=== PATIENT | female | born 1940 | race Caucasian/White ===

== ENCOUNTER 2017-09-01 20:33 | Observation (INO) | payer OTHER ==
[2017-09-01] MEDS ORDERED: OSELTAMIVIR PHOSPHATE 75 MG CAPSULE PO ONE (21:48)
[2017-09-01 22:01] LABS: ARTERIAL BLD GAS O2 SATURATION 95.2 % (90-98.9); ARTERIAL BLOOD GAS BASE EXCESS 1.9 meq/l (-2-2); ARTERIAL BLOOD GAS PCO2 40.6 mmHg (35-45); ARTERIAL BLOOD GAS PO2 73.9 mmHg (70-100); ARTERIAL BLOOD GAS pH 7.42 (7.35-7.45); CARBOXYHEMOGLOBIN 1.4 gm% (0.5-2.0)
[2017-09-01 22:04] LABS: ALLENS TEST POSITIVE
[2017-09-01] MEDS ORDERED: OSELTAMIVIR PHOSPHATE 75 MG CAPSULE ONE (22:13)
[2017-09-01] MEDS ORDERED: ALBUTEROL SO4 2.5/IPRATROPIUM 0.5 INH SOL 3 ML VIAL.NEB. NEB ONE ×2 (22:28→22:36)
--- NOTE | 2017-09-01 22:28 | PDOC ---
History of Present Illness - General Chief Complaint: Cold Symptoms Stated Complaint: FLU SYMPTOMS Time Seen by Provider: 09/01/17 20:47 History Source: Patient Exam Limitations: No Limitations - History of Present Illness Initial Comments: 09/01/17 22:15 76F with no pmh presents to the Ed for shortness of breath, cough, sinus congestion and generalized body aches. Comes in with who has similar symptoms. Son who lives with them was sick and diagnosed with the flu last week Past History - Past Medical History Allergies/Adverse Reactions: Allergies Allergy/AdvReac Type Severity Reaction Status Date / Time No Known Drug Allergies Allergy Verified 09/01/17 20:59 Home Medications: Ambulatory Orders Esomeprazole Magnesium [Nexium 24Hr] 40 mg PO DAILY 07/17/16 Acetaminophen [Tylenol .Regular Strength -] 650 mg PO Q4H PRN #0 tablet Oseltamivir Phosphate [Tamiflu] 75 mg PO BID #10 capsule 09/01/17 Asthma: Yes (RESOLVED) Cancer: No Cardiac Disorders: No CVA: No COPD: No CHF: No Dementia: No Diabetes: No GI Disorders: Yes (REFLUX) Disorders: No HTN: No Hypercholesterolemia: No Liver Disease: No Seizures: No Thyroid Disease: No - Surgical History Abdominal Surgery: No Appendectomy: No Cardiac Surgery: No Cholecystectomy: No Lung Surgery: No Neurologic Surgery: No Orthopedic Surgery: No - Suicide/Smoking/Psychosocial Hx Smoking History: Never smoked Have you smoked in the past 12 months: No Information on smoking cessation initiated: No Hx Alcohol Use: No Drug/Substance Use Hx: No Substance Use Type: None *Physical Exam - Vital Signs Last Vital Signs Temp Pulse Resp BP Pulse Ox 98.8 F 84 16 128/72 95 09/01/17 20:59 09/01/17 20:59 09/01/17 20:59 09/01/17 20:59 09/01/17 20:59 ED Treatment Course - LABORATORY CBC & Chemistry Diagram: 09/01/17 22:45 09/01/17 22:45 - ADDITIONAL ORDERS Additional order review: Laboratory Results 09/01/17 21:35 Puncture Site Left radial ABG pH 7.42 ABG pCO2 at Pt Temp 40.6 ABG pO2 at Pt Temp 73.9 ABG HCO3 25.9 ABG O2 Sat (Measured) 95.2 ABG O2 Content 16.0 ABG Base Excess 1.9 Alfonzo Test Positive Carboxyhemoglobin 1.4 Methemoglobin 0.9 O2 Delivery Device Room air Oxygen Flow Rate No Result Required. 09/01/17 21:15 Influenza Types A,B Antigen (HAIM) - Final Nasopharyngeal Swab - Final Medical Decision Making - Medical Decision Making 09/01/17 22:33 Positiuve for Flu A. Treated with influenza with tamiflu and duoneb. 09/01/17 23:38 Patient persistently dyspneic despite treatments, looks in moderate distress Will admit for observation. 09/01/17 23:53 *DC/Admit/Observation/Transfer Diagnosis at time of Disposition: Influenza A virus present, Dyspnea - Discharge Dispostion Admit: Yes - Prescriptions Prescriptions: Oseltamivir Phosphate [Tamiflu] 75 mg PO BID #10 capsule - Referrals Referrals: Chema Lloyd MD [Primary Care Provider] - - Patient Instructions - Post Discharge Activity
--- NOTE | 2017-09-01 22:39 | PDOC ---
Attending Attestation - Resident Resident Name: Prashanth Quick - ED Attending Attestation I have performed the following: I have examined & evaluated the patient, The case was reviewed & discussed with the resident, I agree w/resident's findings & plan, Exceptions are as noted - HPI HPI: 09/01/17 22:37 76-year-old female presents with several days complaints of worsening fever/ chills, myalgias, cough. Increasingly dyspneic at home, presents with who is also a patient with similar symptoms for 1 day, both had exposure to sun who was recently diagnosed with influenza A. - Physicial Exam PE: 09/01/17 22:38 Vital signs are within normal limits Alert but feels weak, intermittent dry cough Course breath sounds with scattered and expiratory wheezing with cough Abdomen benign - Medical Decision Making 09/01/17 22:38 Patient seen and evaluated with the resident. I agree with the overall evaluation, assessment, and management with the following summary of visit: 76-year-old female with 3 days symptoms of JOÃO, normal vital signs but dyspneic. labs sent ABG, flu, CXR trial of neb reassess 09/01/17 23:50 Influenza a positive, subjectively very dyspneic and weak when ambulating. Labs are reassuring, but given her symptoms and evidence of interstitial disease on my preliminary review of the x-ray, we'll admit for observation overnight.
[2017-09-01 23:03] LABS: HEMATOCRIT 37.5 % (32.4-45.2); HEMOGLOBIN 12.5 GM/dL (10.7-15.3); MCH 29.7 pg (25.7-33.7); MCHC 33.5 g/dl (32.0-36.0); MEAN CELL VOLUME 88.7 fl (80-96); MEAN PLT VOLUME 8.5 fl (7.5-11.1); PLATELET COUNT 133 K/MM3 (134-434); RBC 4.22 M/mm3 (3.60-5.2); RDW 13.6 % (11.6-15.6); WHITE BLOOD COUNT 3.7 K/mm3 (4.0-10.0)
[2017-09-01 23:28] LABS: ALBUMIN 3.6 g/dl (3.4-5.0); ALK PHOS 72 U/L (45-117); ANION GAP 7 (8-16); BILIRUBIN,TOTAL 0.3 mg/dL (0.2-1.0); BLOOD UREA NITROGEN 18 mg/dL (7-18); CALCIUM 7.8 mg/dL (8.5-10.1); CHLORIDE 99 mmol/L (98-107); CO2 30 mmol/L (21-32); CREATININE 0.8 mg/dL (0.55-1.02); GLUCOSE,RANDOM 112 mg/dL (74-106); POTASSIUM 3.3 mmol/L (3.5-5.1); SGOT/AST 189 U/L (15-37); SGPT/ALT 160 U/L (12-78); SODIUM 136 mmol/L (136-145); TOT PROT 7.9 g/dl (6.4-8.2)
[2017-09-02] MEDS ORDERED: ONDANSETRON 4 MG/2 ML VIAL IVPB PRN (00:08)
[2017-09-02] MEDS ORDERED: POTASSIUM CHLORIDE TABS 20 MEQ TABLET.ER (FP) PO ONE ×2 (00:12→15:26)
[2017-09-02] MEDS ORDERED: guaiFENesin/CODEINE 10 ML UNIT-DOSE CUPS PO PRN (00:15)
[2017-09-02] MEDS ORDERED: IBUPROFEN 400 MG TABLET (FP) PO PRN (00:15)
[2017-09-02] MEDS ORDERED: SODIUM CHLORIDE 1,000 ML IV SCH ×2 (00:15→15:27)
--- NOTE | 2017-09-02 00:55 | HP ---
Admitting History and Physical - Admission Chief Complaint: flu symptoms History of Present Illness: 76 yo ukrainian speaking f w hx of gerd, dizziness, constipation, asthma who present to the er for flu symptoms. patient reports onset of flu symptoms 4 days ago. her son tested positive for flu. she reports congestion, genealized malaise, decreased appetite, body aches, chills and fevers. she denies sob, or cp. pmh/psh- gerd, dizziness, constipation, asthma social- no toxic habits, lives w family famhx- nc ros neg except for hpi pex gen- alert, non toxic hent- at/nc, david, neck supple trachea midline resp- no cough, lung ctab, no rales, no wheeze cards- s12 heard, no jvd, no leg edema gi- obese, non-tender, no guarding, no rebound psych- calm, no agitation neuro- alert, no facial droop, speech clear skin- no erythema pcp- dr beltre prob list flu A positive asthma constipation dizziness transamintis hypokalemia a/p- 76 yo ukrainian speaking f w hx of gerd, dizziness, constipation, asthma who present to the er for flu symptoms. 1. influenza A positive- started on tamiflu, conservative measures, ivf. 2. asthma( stable) prn nebs 3. h/o dizziness- prn meclizine 4. gerd- cont ppi 5. transamintis- trend lfts, check acute hep panel, tylenol level. 6. constipation- senna hs 7. hypokalemia- replete as needed 8. mild thrombocytopenia-monitor labs. no s/s bleeding dvt prophy scd, oob, expect less than 48hr fen ivf dispo- obs for flu History Source: Patient, Family Member Limitations to Obtaining History: Language Barrier - Smoking History Smoking history: Never smoked Have you smoked in the past 12 months: No - Alcohol/Substance Use Hx Alcohol Use: No Home Medications - Allergies Allergies/Adverse Reactions: Allergies Allergy/AdvReac Type Severity Reaction Status Date / Time No Known Drug Allergies Allergy Verified 09/01/17 20:59 - Home Medications Home Medications: Ambulatory Orders Esomeprazole Magnesium [Nexium 24Hr] 40 mg PO DAILY 07/17/16 Acetaminophen [Tylenol .Regular Strength -] 650 mg PO Q4H PRN #0 tablet Oseltamivir Phosphate [Tamiflu] 75 mg PO BID #10 capsule 09/01/17 Physical Examination Vital Signs: Vital Signs Temperature 98.8 F 09/01/17 20:59 Pulse Rate 84 09/01/17 20:59 Respiratory Rate 16 09/01/17 20:59 Blood Pressure 128/72 09/01/17 20:59 O2 Sat by Pulse Oximetry (%) 95 09/01/17 20:59 Labs: CBC, BMP 09/01/17 22:45 09/01/17 22:45 Visit type - Emergency Visit Emergency Visit: Yes ED Registration Date: 09/02/17 Care time: The patient presented to the Emergency Department on the above date and was hospitalized for further evaluation of their emergent condition. - New Patient This patient is new to me today: Yes Date on this admission: 09/02/17 - Critical Care Critical Care patient: No
[2017-09-02] MEDS ORDERED: MECLIZINE HCL 12.5 MG TABLET PO PRN (00:56)
[2017-09-02] MEDS ORDERED: POTASSIUM CHLORIDE ORAL LIQUID 20 MEQ/15 ML ONE (02:06)
[2017-09-02 06:14] LABS: HEMATOCRIT 36.9 % (32.4-45.2); MCHC 32.5 g/dl (32.0-36.0); MEAN CELL VOLUME 89.1 fl (80-96); MEAN PLT VOLUME 8.7 fl (7.5-11.1); PLATELET COUNT 139 K/MM3 (134-434); RBC 4.14 M/mm3 (3.60-5.2); RDW 13.7 % (11.6-15.6); WHITE BLOOD COUNT 2.7 K/mm3 (4.0-10.0)
[2017-09-02] MEDS ORDERED: ACETAMINOPHEN 325 MG TABLET (FP) PO ONE (06:25)
[2017-09-02] MEDS ORDERED: ACETAMINOPHEN 325 MG TABLET (FP) ONE (06:26)
[2017-09-02 06:42] LABS: ALBUMIN 3.3 g/dl (3.4-5.0); ALK PHOS 41 U/L (45-117); ANION GAP 9 (8-16); BILIRUBIN,TOTAL 0.3 mg/dL (0.2-1.0); BLOOD UREA NITROGEN 15 mg/dL (7-18); CALCIUM 8.1 mg/dL (8.5-10.1); CHLORIDE 102 mmol/L (98-107); CO2 27 mmol/L (21-32); CREATININE 0.7 mg/dL (0.55-1.02); GLUCOSE,RANDOM 108 mg/dL (74-106); MAGNESIUM 2.1 mg/dL (1.8-2.4); POTASSIUM 3.4 mmol/L (3.5-5.1); SGOT/AST 191 U/L (15-37); SGPT/ALT 162 U/L (12-78); SODIUM 138 mmol/L (136-145); TOT PROT 7.3 g/dl (6.4-8.2)
[2017-09-02] MEDS ORDERED: ONDANSETRON 4 MG/2 ML VIAL ONE (08:07)
[2017-09-02] MEDS ORDERED: ALBUTEROL SO4 2.5/IPRATROPIUM 0.5 INH SOL 3 ML VIAL.NEB. NEB ONE (08:15)
[2017-09-02] MEDS ORDERED: IBUPROFEN 400 MG TABLET (FP) PO ONE (08:15)
[2017-09-02] MEDS: ALBUTEROL SO4 2.5/IPRATROPIUM 0.5 INH SOL 3 ML VIAL.NEB. NEB PRN ×2 (08:22→14:03)
[2017-09-02] MEDS: OSELTAMIVIR PHOSPHATE 75 MG CAPSULE PO SCH ×2 (09:01→21:33)
[2017-09-02] MEDS: PANTOPRAZOLE 40 MG TABLET (FP) PO SCH (09:01)
[2017-09-02 10:55] VITALS: BMI 29.2
--- NOTE | 2017-09-02 15:26 | PN ---
Progress Note (short form) - Note Progress Note: Subjective: no SOB , no events. Objective: Vital Signs: Last Vital Signs Temp Pulse Resp BP Pulse Ox 98.1 F 66 17 107/55 96 09/02/17 13:46 09/02/17 13:46 09/02/17 13:46 09/02/17 13:46 09/02/17 13:46 Laboratory Results - last 24 hr 09/01/17 09/01/17 09/01/17 21:35 22:45 22:45 WBC 3.7 L RBC 4.22 Hgb 12.5 Hct 37.5 MCV 88.7 MCH 29.7 MCHC 33.5 RDW 13.6 Plt Count 133 L MPV 8.5 Neutrophils % No Result Required. Neutrophils % (Manual) 71.6 Band Neutrophils % 8.7 Lymphocytes % No Result Required. Lymphocytes % (Manual) 10.2 Monocytes % (Manual) 5 Eosinophils % (Manual) 0.0 Basophils % (Manual) 1.6 Myelocytes % (Man) 1 Promyelocytes % (Man) 0 Nucleated RBC % 2 H Metamyelocytes 2 Puncture Site Left radial ABG pH 7.42 ABG pCO2 at Pt Temp 40.6 ABG pO2 at Pt Temp 73.9 ABG HCO3 25.9 ABG O2 Sat (Measured) 95.2 ABG O2 Content 16.0 ABG Base Excess 1.9 Alfonzo Test Positive Carboxyhemoglobin 1.4 Methemoglobin 0.9 O2 Delivery Device Room air Oxygen Flow Rate No Result Required. Sodium 136 Potassium 3.3 L Chloride 99 Carbon Dioxide 30 Anion Gap 7 L BUN 18 Creatinine 0.8 Creat Clearance w eGFR > 60 Random Glucose 112 H Calcium 7.8 L Magnesium Total Bilirubin 0.3 AST 189 H ALT 160 H Alkaline Phosphatase 72 Total Protein 7.9 Albumin 3.6 Acetaminophen 09/02/17 09/02/17 09/02/17 00:36 05:55 05:55 WBC 2.7 L RBC 4.14 Hgb 12.0 Hct 36.9 MCV 89.1 MCH 29.0 MCHC 32.5 RDW 13.7 Plt Count 139 MPV 8.7 Neutrophils % No Result Required. Neutrophils % (Manual) 63.2 Band Neutrophils % 3.8 Lymphocytes % No Result Required. Lymphocytes % (Manual) 18.9 D Monocytes % (Manual) 12 H D Eosinophils % (Manual) 0.0 Basophils % (Manual) 0.0 Myelocytes % (Man) 0 D Promyelocytes % (Man) 0 Nucleated RBC % Metamyelocytes 2 Puncture Site ABG pH ABG pCO2 at Pt Temp ABG pO2 at Pt Temp ABG HCO3 ABG O2 Sat (Measured) ABG O2 Content ABG Base Excess Alfonzo Test Carboxyhemoglobin Methemoglobin O2 Delivery Device Oxygen Flow Rate Sodium 138 Potassium 3.4 L Chloride 102 Carbon Dioxide 27 Anion Gap 9 BUN 15 Creatinine 0.7 Creat Clearance w eGFR > 60 Random Glucose 108 H Calcium 8.1 L Magnesium 2.1 Total Bilirubin 0.3 AST 191 H ALT 162 H Alkaline Phosphatase 41 L Total Protein 7.3 Albumin 3.3 L Acetaminophen 4.599 L Physical Exam: NAD MMM Cv: RRR Lungs: generalized wheezes , good air entry Ext: no edema Abd:soft, NT, ND , NL BS Assessment/Plan: 76 y/o lady with h/o asthma ,GERD and other medical problems who presented with URI sx and wheezing , was found to have Influenza A 1- Influenza A: - cont tamiflu day 1 - no evidence of PNA - no oxygen requirements 2 - Mild asthma exacerbation : generalized wheezing . , nl AGB, no reps distress - start low dose prednisone with taper - Nebs 3- Transaminitis: has fatty liver on US . no signs of obstruction flu infection might be contributing hepatitis panel ordered, add hep B S abs and Hep B Core igG follow 4- mild volume depletion : gentle hydration Observe Visit type - Emergency Visit Emergency Visit: Yes ED Registration Date: 09/02/17 Care time: The patient presented to the Emergency Department on the above date and was hospitalized for further evaluation of their emergent condition. - New Patient This patient is new to me today: No - Critical Care Critical Care patient: No
[2017-09-02] MEDS: predniSONE 20 MG TABLET (UD) PO SCH (17:28)
[2017-09-02] MEDS ORDERED: PT OWN MED DRAWER 7, Y5N ONE (21:31)
[2017-09-02] MEDS ORDERED: SENNOSIDES/DOCUSATE COMBO (SENNA PLUS) TABLET (UD) PO SCH (22:00)
[2017-09-03 07:09] LABS: BASO % 0.5 % (0-2.0); HEMATOCRIT 39.3 % (32.4-45.2); HEMOGLOBIN 12.4 GM/dL (10.7-15.3); LYMPH % 51.3 % (8-40); MCH 28.5 pg (25.7-33.7); MCHC 31.6 g/dl (32.0-36.0); MEAN CELL VOLUME 90.2 fl (80-96); MEAN PLT VOLUME 9.1 fl (7.5-11.1); NEUT % 32.2 % (42.8-82.8); PLATELET COUNT 153 K/MM3 (134-434); RBC 4.36 M/mm3 (3.60-5.2); RDW 13.8 % (11.6-15.6)
[2017-09-03 07:34] LABS: POTASSIUM 4.2 mmol/L (3.5-5.1)
[2017-09-03 08:09] LABS: ALBUMIN 3.1 g/dl (3.4-5.0); ALK PHOS 64 U/L (45-117); BILIRUBIN,DIRECT < 0.2 mg/dL (0.0-0.2); BILIRUBIN,TOTAL 0.3 mg/dL (0.2-1.0); PHOSPHOROUS 2.9 mg/dL (2.5-4.9); SGOT/AST 134 U/L (15-37); SGPT/ALT 139 U/L (12-78); TOT PROT 7.2 g/dl (6.4-8.2)
[2017-09-03] MEDS ORDERED: PT OWN MED DRAWER 7, Y5N ONE (10:08)
[2017-09-03] MEDS: PANTOPRAZOLE 40 MG TABLET (FP) PO SCH (10:11)
[2017-09-03] MEDS: predniSONE 20 MG TABLET (UD) PO SCH (10:12)
[2017-09-03] MEDS: OSELTAMIVIR PHOSPHATE 75 MG CAPSULE PO SCH (10:12)
[2017-09-03 12:33] VITALS: BP 135/81; PULSE 86; TEMP 98.6
--- NOTE | 2017-09-03 15:49 | PN ---
Teaching Attending Note Name of Resident: Maurice Sheffield ATTENDING PHYSICIAN STATEMENT I saw and evaluated the patient. I reviewed the resident's note and discussed the case with the resident. I agree with the resident's findings and plan as documented. SUBJECTIVE: No fever or chills, NO SOB , no PAIn in ABd . OBJECTIVE: NAD MMM Cv: RRR Lungs: No wheezing , good air entry Ext: no edema Abd:soft, NT, ND , NL BS Assessment/Plan: 76 y/o lady with h/o asthma ,GERD and other medical problems who presented with URI sx and wheezing , was found to have Influenza A 1- Influenza A: - cont tamiflu day 2/5 - no evidence of PNA - no oxygen requirements 2 - Mild asthma exacerbation: Improved - cont quick prednisone taper - Nebs 3- Transaminitis: has fatty liver on US. no signs of obstruction flu infection might be contributing hepatitis panel pending follow dc home need f/u with PCP and CBC and LFTs as out pt
--- NOTE | 2017-09-03 17:37 | DS ---
Physical Exam: SUBJECTIVE: Patient seen and examined. Patient appears improved compared to her status yesterday. She states that she has some mild dizziness but denies further fevers, chills, nausea, vomiting, diarrhea, chest pain, SOB. Patient is able to walk with assistance. OBJECTIVE: Vital Signs Period Temp Pulse Resp BP Sys/Piña Pulse Ox Last 24 Hr 98.2 F-99.5 F 63-86 12-17 99-135/55-81 92-94 PHYSICAL EXAM GENERAL: The patient is awake, alert, and fully oriented, in no acute distress. HEAD: Normal with no signs of trauma. EYES: PERRL, extraocular movements intact, sclera anicteric, conjunctiva clear. ENT: Ears normal, nares patent, oropharynx clear without exudates, moist mucous membranes. NECK: Trachea midline, full range of motion, supple. LUNGS: Breath sounds equal, clear to auscultation bilaterally, no wheezes, no crackles, no accessory muscle use. HEART: Regular rate and rhythm, S1, S2 without murmur, rub or gallop. ABDOMEN: Soft, nontender, nondistended, normoactive bowel sounds, no guarding, no rebound, no hepatosplenomegaly, no masses. EXTREMITIES: 2+ pulses, warm, well-perfused, no edema. NEUROLOGICAL: Cranial nerves II through XII grossly intact. Normal speech, gait not observed. PSYCH: Normal mood, normal affect. SKIN: Warm, dry, normal turgor, no rashes or lesions noted. LABS Laboratory Results - last 24 hr 09/02/17 09/03/17 09/03/17 02:22 06:09 06:09 WBC 2.0 L RBC 4.36 Hgb 12.4 Hct 39.3 MCV 90.2 MCH 28.5 MCHC 31.6 L RDW 13.8 Plt Count 153 MPV 9.1 Neutrophils % 32.2 L Lymphocytes % 51.3 H Monocytes % 16.0 H Eosinophils % 0.0 Basophils % 0.5 Potassium 4.2 Phosphorus 2.9 Magnesium 2.0 Total Bilirubin 0.3 Direct Bilirubin < 0.2 AST 134 H ALT 139 H Alkaline Phosphatase 64 Total Protein 7.2 Albumin 3.1 L Hepatitis A IgM Ab Negative Hep Bs Antigen Negative Hep B Core IgM Ab Negative Hepatitis C Antibody 0.1 09/03/17 06:09 WBC RBC Hgb Hct MCV MCH MCHC RDW Plt Count MPV Neutrophils % Lymphocytes % Monocytes % Eosinophils % Basophils % Potassium Phosphorus Magnesium Total Bilirubin Cancelled Direct Bilirubin Cancelled AST Cancelled ALT Cancelled Alkaline Phosphatase Cancelled Total Protein Cancelled Albumin Cancelled Hepatitis A IgM Ab Hep Bs Antigen Hep B Core IgM Ab Hepatitis C Antibody HOSPITAL COURSE: Date of Admission:09/02/17 76 year old cayman islander speaking female with a history of gerd, constipation, and asthma presented to the ER with fevers, body aches, congestion, malaise. Patient was diagnosed with influenza A in the ED with the flu swab. Patient was treated with 2 days of tamiflu. CXR did not show evidence of pneumonia. She had a mild exacerbation of her asthma with symptoms of wheezing but no clinical shortness of breath. She was treated with a steroid taper. Patient was also found to have a mild transaminitis. She had a liver ultrasound performed that showed fatty liver without signs of obstruction. This could have been related to having a viral infection. She clinically improved over 2 days and was discharged home with instructions to finish 3.5 days of tamiflu and to follow with Dr. Conrad within 1 week of discharge. Date of Discharge: 09/03/17 Minutes to complete discharge: 35 Discharge Summary Reason For Visit: INFLUENZA A VIRUS PRESENT, DYSPNEA Condition: Improved - Instructions Diet, Activity, Other Instructions: You were admitted to the hospital for the treatment of the flu. It was found that you had elevated liver enzymes. We performed an ultrasound of the liver. It is likely that this is due to mild fatty liver disease in combination with the flu virus. We treated you with Tamiflu in the hospital. You need to continue to take Tamiflu for a total of 3.5 days Medical Recommendations: 1. Take Tamiflu 75mg by mouth TWICE a day for 3.5 days. take the first pill this evening 2. Drink plenty of water, 8-10 glasses a day to stay adequately hydrated 3. You will need to get a blood test in one week to recheck your white blood cells and your liver enzymes. Please get this done and have them faxed to Dr. Conrad. 4- for your asthma , you were started on prednisone taper, please follow the instructions : take 3 tab daily x 2 days then 2 tab daily x 2 day then 1 tab daily x 2 days then stop . Do nOT stop prednisone without consulting with your doctor - use albuterol inhaler if you are wheezing If you experience further fevers, chills, nausea, vomiting, diarrhea or difficulty breathing, please return to the emergency room. Referrals: Chema Lloyd MD [Primary Care Provider] - 1 Week Disposition: HOME - Home Medications Comprehensive Discharge Medication List: Ambulatory Orders Esomeprazole Magnesium [Nexium 24Hr] 40 mg PO DAILY 07/17/16 Acetaminophen [Tylenol .Regular Strength -] 650 mg PO Q4H PRN #0 tablet Oseltamivir Phosphate [Tamiflu] 75 mg PO BID #10 capsule 09/01/17 Albuterol Sulfate Inhaler - [Ventolin HFA Inhaler -] 1 - 2 inh PO Q4H #1 inhaler 09/03/17 Miscellaneous Drug Not In Syst [Outpatient Lab Test] 1 each ASDIR #1 misc Oseltamivir Phosphate [Tamiflu] 75 mg PO BID #7 capsule 09/03/17 Prednisone 30 mg PO DAILY #12 tablet 09/03/17 This patient is new to me today: Yes Date on this admission: 09/03/17 Emergency Visit: No Critical Care patient: No - Discharge Referral Referred to [facility] Yes Physician Referral: Chema Davidson MD ([facility])
[2017-09-04 06:06] LABS: HEPATITIS B CORE ANTIBODY Negative (Negative)
== END 2017-09-03 11:53 | disposition home or self-care (01) ==
LOC: JER 20:33 → JERBED 09-02 00:04 → UNDOADMOB 09-02 00:21 → JERBED 09-02 00:21 → J4S 09-02 16:44
PROVIDERS: ADMIT Internal Medicine; ATTEND Internal Medicine
PROC: 3E033GC Introduction of Other Therapeutic Substance into Peripheral Vein, Percutaneous Approach (ICD-10-PCS; principal; 2017-09-02)
PROC: 3E0337Z Introduction of Electrolytic and Water Balance Substance into Peripheral Vein, Percutaneous Approach (ICD-10-PCS; 2017-09-02)
PROC: 3E0F7GC Introduction of Other Therapeutic Substance into Respiratory Tract, Via Natural or Artificial Opening (ICD-10-PCS; 2017-09-02)
DX: J09.X2 Influenza due to identified novel influenza A virus with other respiratory manifestations (principal); J45.901 Unspecified asthma with (acute) exacerbation; R06.00 Dyspnea, unspecified; K21.9 Gastro-esophageal reflux disease without esophagitis; D72.819 Decreased white blood cell count, unspecified; R74.0 Nonspecific elevation of levels of transaminase and lactic acid dehydrogenase [LDH]; K76.0 Fatty (change of) liver, not elsewhere classified
CPT/HCPCS: 36415; 36600; 71045-TC; 76705-TC; 80053; 80074; 80076; 80307; 82375; 82803; 83050; 83735; 84100; 84132; 85025; 86704; 87804; 94640; 99284-25; G0378

== ENCOUNTER 2018-03-29 11:31 | Inpatient (IN) | payer OTHER ==
--- NOTE | 2018-03-29 12:36 | PDOC ---
Attending Attestation - HPI HPI: 03/29/18 14:07 The patient is a 77 year old female with a significant PMH of asthma and reflux who presents to the emergency department with left sided abdominal pain for about 4 days. The patient reports associated yellow bile with her abdominal pain. She states that her last bowel was about 4 days ago by which she was prescribed medication. She reports that she has not been compliant with her medication. The patient also reports that she has been passing gas. She states that she has not been eating since yesterday secondary to pain. The patient denies any other symptoms. She denies any fever, chills, nausea, vomit, diarrhea or urinary symptoms. She denies any chest pain, shortness of breath, headache and dizziness. The patient denies any other complaints. - Physicial Exam PE: 03/29/18 14:07 GENERAL: Awake, alert, and fully oriented, in no acute distress HEAD: No signs of trauma EYES: PERRLA, EOMI, sclera anicteric, conjunctiva clear ENT: Auricles normal inspection, hearing grossly normal, nares patent, oropharynx clear without exudates. Moist mucosa NECK: Normal ROM, supple, no lymphadenopathy, JVD, or masses LUNGS: Breath sounds equal, clear to auscultation bilaterally. No wheezes, and no crackles HEART: Regular rate and rhythm, normal S1 and S2, no murmurs, rubs or gallops ABDOMEN: (+)left lower suprepubic pain. Left CVA. Soft, normoactive bowel sounds. No guarding, no rebound. No masses EXTREMITIES: Normal range of motion, no edema. No clubbing or cyanosis. No cords, erythema, or tenderness NEUROLOGICAL: Cranial nerves II through XII grossly intact. Normal speech, normal gait SKIN: Warm, Dry, normal turgor, no rashes or lesions noted. Documentation prepared by Majo Chappell, acting as medical logistics specialist for Rita Mai MD. <Majo Chappell - Last Filed: 03/29/18 14:07> - Resident Resident Name: Manuel Landry - ED Attending Attestation I have performed the following: I have examined & evaluated the patient, The case was reviewed & discussed with the resident, I agree w/resident's findings & plan, Exceptions are as noted - Medical Decision Making 03/29/18 12:36 I, Dr. Rita Mai, DO, attest that this document has been prepared under my direction and personally reviewed by me in its entirety. I further attest, that it accurately reflects all work, treatment, procedures and medical decision -making performed by me. 03/29/18 13:12 77yo female with constipation, no bm x 4 days, hx of roberta, n/v - bilious, but not bloody and LLQ/suprapubic pain -pt with llq and suprapubic ttp - concern for UTI vs diveriticulitis vs colitis vs obstruction -will send labs, will need ct abd/pelvis for further eval of pain -ivf hydration -pain control -will monitor and reassess -npo 03/29/18 17:44 labs reviewed uti on labs ct pending 03/29/18 17:44 ct does show lower abd hernia - attempted to reduce, unable to reduce call placed to surgery for reduction 03/29/18 19:02 multiple calls placed to surgery pt with large and small bowel within hernia - mesenteric edema on ct discussed ct findings with radiology pending surgical consultation 03/29/18 19:[address] Noyola who will be down to eval the patient. <Rita Mai - Last Filed: 03/29/18 19:05> Heart Score/ECG Review - ECG Intrepretation Comment:: 03/29/18 13:17 sinus at 71, nl axis, nl interval, no acute st/t wave findings <Rita Mai - Last Filed: 03/29/18 19:05>
[2018-03-29] MEDS ORDERED: ONDANSETRON 4 MG/2 ML VIAL IVPUSH ONE (12:53)
[2018-03-29] MEDS ORDERED: SODIUM CHLORIDE 0.9% 500 ML INFUS.BAG IV ONE (12:53)
[2018-03-29] MEDS ORDERED: morphine CARPU-JECT 4 MG/1 ML DISP.SYRIN IVPUSH ONE (12:53)
[2018-03-29] MEDS ORDERED: morphine SULFATE 4 MG/ML VIAL ONE (13:05)
[2018-03-29] MEDS ORDERED: ONDANSETRON 4 MG/2 ML VIAL ONE ×2 (13:05→22:48)
--- NOTE | 2018-03-29 13:05 | PDOC ---
History of Present Illness - General Chief Complaint: Pain, Acute Stated Complaint: VOMITING/PAIN Time Seen by Provider: 03/29/18 12:14 History Source: Patient, Customer Response Representative Used (Pt is Lithuanian speaking only. Translation provided by telephone interpreter deaf.) Exam Limitations: Language Barrier - History of Present Illness Initial Comments: 77 y/o female presenting to [facility] ER complaining of acute on chronic diffuse abdominal pain and flatulence. Pt states she was been experiencing this waxing and weaning pain for over a year since she underwent a cholecystectomy. This episode started a few days ago and has been increasing in intensity. Pain starts in lower left quadrant and moves to my vagina but pt also indicates the pain moves everywhere in her abdomen including R and L flanks. Also complaining of bump under skin in epigastric. Further endorses nausea and vomiting; described as nonbloody and nonbilious. Endorses chronic constipation; last BM was four days ago; has been passing flatus. *Pt is Lithuanian speaking only. Translation provided by telephone service. *Interview was technically difficult as pt refused to answer many ROS questions and would only repeat her chief complaint. Past History - Past Medical History Allergies/Adverse Reactions: Allergies Allergy/AdvReac Type Severity Reaction Status Date / Time No Known Drug Allergies Allergy Verified 03/29/18 11:53 Home Medications: Ambulatory Orders Esomeprazole Magnesium [Nexium 24Hr] 40 mg PO DAILY 07/17/16 Acetaminophen [Tylenol .Regular Strength -] 650 mg PO Q4H PRN #0 tablet Oseltamivir Phosphate [Tamiflu] 75 mg PO BID #10 capsule 09/01/17 Albuterol Sulfate Inhaler - [Ventolin HFA Inhaler -] 1 - 2 inh PO Q4H #1 inhaler 09/03/17 Miscellaneous Drug Not In Syst [Outpatient Lab Test] 1 each ASDIR #1 misc Oseltamivir Phosphate [Tamiflu] 75 mg PO BID #7 capsule 09/03/17 Prednisone 30 mg PO DAILY #12 tablet 09/03/17 Asthma: Yes (RESOLVED) Cancer: No Cardiac Disorders: No CVA: No COPD: No CHF: No Dementia: No Diabetes: No GI Disorders: Yes (REFLUX) Disorders: No HTN: No Hypercholesterolemia: No Liver Disease: No Seizures: No Thyroid Disease: No - Surgical History Abdominal Surgery: No Appendectomy: No Cardiac Surgery: No Cholecystectomy: Yes Lung Surgery: No Neurologic Surgery: No Orthopedic Surgery: No - Suicide/Smoking/Psychosocial Hx Smoking History: Never smoked Have you smoked in the past 12 months: No Information on smoking cessation initiated: No Hx Alcohol Use: No Drug/Substance Use Hx: No Substance Use Type: None Review of Systems - Review of Systems Able to Perform ROS?: Yes Is the patient limited Micronesian proficient: Yes Constitutional: No: Chills, Diaphoresis, Fever, Weakness HEENTM: No: Difficulty Swallowing Respiratory: No: Shortness of Breath Cardiac (ROS): No: Chest Pain ABD/GI: Yes: See HPI, Constipated (Chronic and unchanged. ), Nausea, Vomiting. No: Blood Streaked Bowels, Diarrhea, Difficulty Swallowing, Rectal Bleeding, Tarry Stools : No: Burning, Dysuria, Discharge, Frequency, Flank Pain, Hematuria Musculoskeletal: No: Back Pain Integumentary: No: Bruising, Rash, Sweating Hematologic/Lymphatic: No: Easy Bleeding, Easy Bruising *Physical Exam - Vital Signs Last Vital Signs Temp Pulse Resp BP Pulse Ox 97.3 F L 79 16 164/84 100 03/29/18 11:46 03/29/18 11:46 03/29/18 11:46 03/29/18 11:46 03/29/18 11:46 - Physical Exam Comments: Constitutional: Well-developed, well-nourished, obese female in no acute life threat but obvious discomfort. Found semi-fowlers in hospital bed. Alert and oriented x4. Speech was non-labored, non-pressured. ]HEENT: Normocephalic. No obvious external signs of trauma. Hearing grossly normal. No nasal discharge. Neck is supple, trachea is midline. Cardiovascular: Regular rate and regular rhythm. No murmur, rubs, clicks, or gallops. Peripheral pulses: Radial pulses full. Respiratory: Equal chest rise and fall. Clear to auscultation bilaterally. No stridor, no wheezing, no rhonchi. Gastrointestinal: abdomen is non-peritoneal but diffusely tender in all four quadrants with grimace to palpation of LLQ; no rebound or guarding. Small palpable hard mass in epigastrum without overlying skin lesions. No obvious ventral hernia. No pulsatile masses. No overlying skin lesions or obvious signs of trauma. Neuro: Alert and oriented. Moving all four extremities spontaneously. Psych: Affect: appropriate. Mood: concerned. Skin: Warm, dry, and intact. : No R or L CVA tenderness. ED Treatment Course - LABORATORY CBC & Chemistry Diagram: 03/29/18 13:40 03/29/18 13:40 - RADIOLOGY Radiology Studies Ordered: Category Date Time Status ABDOMEN & PELVIS CT WITH CONTR [CT] Stat CT Scan 03/29/18 12:51 Ordered Medical Decision Making - Medical Decision Making *Reviewed nursing notes and prior visit documentation. 77 y/o female complaining of generalized abdominal pain worse in LLQ with nausea /vomiting. Acute on chronic problem since cholecystectomy a year ago. Afebrile. Vitals remarkable for hypertension without tachycardia. Physical exam revealed grimace in LLQ without peritoneal signs. Suspect diverticulosis/itis versus gastritis versus pancreatitis versus nephrolithiasis versus pyelonephritis. Low suspicion for obstruction as pt is vomiting and passing flatus. Low suspicion for aortic dissection. Low suspicion for ACS. Will obtain CBC, CMP, Lipase, EKG , Troponin, UA, Urine culture, CT Abd with PO and IV contrast. Ordered NS bolus , Zofran, and Morphine for symptoms relief. EKG: Sinus rhythm without ectopy at ventricular rate of 71. Normal axis. Normal intervals. No ST segment elevation or depression. None specific P wave flattening in V2. No T wave abnormalities. No pathologic Q waves. 18:09 Ordered ceftriaxone with concern for UTI given UA results, also for intra-abdominal coverage. Ventral hernia containing bowel noted on CT by my wet read. Unable to reduce hernia at bedside. Page sent to surgery department at 17:42. Awaiting call back. CT of Abdomen/Pelvis with contrast revealed midline ventral hernia containing small and possibly large bowel. Associated small bowel dilation secondary to obstruction. Mesenteric edema and small amount of free fluid noted within hernia sac. Continue to await call back from surgery. Discussed results of laboratory and imaging studies with pt and family. All expressed verbal understanding and agreement with plan to likely admit to the hospital. 19:06 Dr. Noyola, surgeon returned page. Will evaluate pt. Requested NG tube placement in interim. 19:40 16 fr NG Tube inserted into right nare. Secured with tape. Length: 75 at nare. Placement confirmed by CXR; film poor technical quality but able to visualize tube is not following bronchiole makings. Placement aided by nebulized 2% lidocaine without. 20:17 Dr. Noyola able to reduce hernia in department. Requests pt to be admitted and will likely repair in morning. Microblog sent to hospitalist team. 03/29/18 20:48 Bedside consultation with resident Dr. Nguyen. Pt to be admitted to inpatient med/surg under Dr. Osman. *DC/Admit/Observation/Transfer Diagnosis at time of Disposition: Ventral hernia with bowel obstruction - Discharge Dispostion Condition at time of disposition: Good Decision to Admit order: Yes - Referrals - Patient Instructions - Post Discharge Activity
[2018-03-29 14:16] LABS: BASO % 0.7 % (0-2.0); EOS % 1.3 % (0-4.5); HEMATOCRIT 38.4 % (32.4-45.2); HEMOGLOBIN 12.7 GM/dL (10.7-15.3); LYMPH % 23.7 % (8-40); MCH 29.1 pg (25.7-33.7); MCHC 33.2 g/dl (32.0-36.0); MEAN CELL VOLUME 87.6 fl (80-96); MEAN PLT VOLUME 9.8 fl (7.5-11.1); MONO % 7.6 % (3.8-10.2); NEUT % 66.7 % (42.8-82.8); PLATELET COUNT 208 K/MM3 (134-434); RBC 4.38 M/mm3 (3.60-5.2)
[2018-03-29 14:23] LABS: URINE APPEARANCE SLCLOUDY; URINE BILIRUBIN NEGATIVE (<2.0 mg/dL); URINE COLOR YELLOW; URINE GLUCOSE (UA) NEGATIVE (NEGATIVE); URINE KETONE NEGATIVE (NEGATIVE); URINE NITRITE NEGATIVE (NEGATIVE); URINE UROBILINOGEN NEGATIVE mg/dL (0.2-1.0)
[2018-03-29 14:31] LABS: URINE LEUK ESTERASE 3+ (NEGATIVE); URINE PROTEIN 1+ (NEGATIVE)
[2018-03-29 14:33] LABS: EPI CELLS RARE /HPF (FEW); URINE BACTERIA MANY /hpf (NONE SEEN); URINE MUCUS RARE
[2018-03-29 14:44] LABS: ALBUMIN 3.9 g/dl (3.4-5.0); ANION GAP 8 MMOL/L (8-16); BLOOD UREA NITROGEN 9 mg/dL (7-18); CALCIUM 8.8 mg/dL (8.5-10.1); CHLORIDE 103 mmol/L (98-107); CO2 28 mmol/L (21-32); CREATININE 0.7 mg/dL (0.55-1.02); GLUCOSE,RANDOM 96 mg/dL (74-106); LIPASE 119 U/L (73-393); SGPT/ALT 64 U/L (12-78); SODIUM 139 mmol/L (136-145); TOT PROT 8.5 g/dl (6.4-8.2)
[2018-03-29 14:50] LABS: ALK PHOS 90 U/L (45-117); BILIRUBIN,TOTAL 0.3 mg/dL (0.2-1.0)
[2018-03-29 14:51] LABS: POTASSIUM 4.4 mmol/L (3.5-5.1); SGOT/AST 42 U/L (15-37)
[2018-03-29] MEDS ORDERED: CEFTRIAXONE 1,000 MG in DEXTROSE 5%-WATER - 50 ML IVPB ONE (18:09)
[2018-03-29] MEDS ORDERED: CEFTRIAXONE 1 GM/50 ML BAG ONE (18:48)
[2018-03-29] MEDS ORDERED: LIDOCAINE HCL 2% (50ML VIAL) SQ ONE (19:18)
[2018-03-29] MEDS ORDERED: LIDOCAINE HCL 2% (20ML MULTI-DOSE VIAL) NR ONE (19:20)
[2018-03-29] MEDS ORDERED: POLYETHYLENE GLYCOL 3350 119 GM BTL PO ONE (20:09)
--- NOTE | 2018-03-29 20:16 | PDOC ---
*Physical Exam - Vital Signs Last Vital Signs Temp Pulse Resp BP Pulse Ox 98.5 F 74 17 153/69 95 03/29/18 19:05 03/29/18 19:05 03/29/18 19:05 03/29/18 19:05 03/29/18 19:05 ED Treatment Course - LABORATORY CBC & Chemistry Diagram: 03/29/18 13:40 03/29/18 13:40 - ADDITIONAL ORDERS Additional order review: Laboratory Results 03/29/18 03/29/18 03/29/18 17:28 13:40 13:40 Sodium 139 Potassium 4.4 Chloride 103 Carbon Dioxide 28 Anion Gap 8 BUN 9 Creatinine 0.7 Creat Clearance w eGFR > 60 Random Glucose 96 Calcium 8.8 Total Bilirubin 0.3 AST 42 H ALT 64 Alkaline Phosphatase 90 Troponin I 0.05 0.06 H Total Protein 8.5 H Albumin 3.9 Lipase 119 Urine Color Yellow Urine Appearance Slcloudy Urine pH 8.0 Ur Specific [place] 1.016 Urine Protein 1+ H Urine Glucose (UA) Negative Urine Ketones Negative Urine Blood 1+ H Urine Nitrite Negative Urine Bilirubin Negative Urine Urobilinogen Negative Ur Leukocyte Esterase 3+ H Urine WBC (Auto) 86 Urine RBC (Auto) 10 Ur Epithelial Cells Rare Urine Bacteria Many Urine Mucus Rare 03/29/18 13:40 RBC 4.38 MCV 87.6 MCHC 33.2 RDW 15.0 MPV 9.8 Neutrophils % 66.7 D Lymphocytes % 23.7 D Monocytes % 7.6 Eosinophils % 1.3 D Basophils % 0.7 - Medications Given in the ED: ED Medications Discontinued Medications Generic Name Dose Route Start Last Admin Trade Name Garth PRN Reason Stop Dose Admin Ceftriaxone Sodium 1,000 mg/ 50 mls @ 100 mls/hr 03/29/18 18:09 03/29/18 18: 50 Dextrose IVPB 03/29/18 18:38 100 mls/hr ONCE ONE Administration Lidocaine HCl 20 mg 03/29/18 19:18 03/29/18 19:30 Xylocaine 2% SQ 03/29/18 19:19 20 mg ONCE ONE Administration Morphine Sulfate 4 mg 03/29/18 12:53 03/29/18 13:40 Morphine Injection - IVPUSH 03/29/18 12:54 4 mg ONCE ONE Administration Ondansetron HCl 4 mg 03/29/18 12:53 03/29/18 13:40 Zofran Injection IVPUSH 03/29/18 12:54 4 mg ONCE ONE Administration Sodium Chloride 1,000 ml 03/29/18 12:53 03/29/18 13:40 Normal Saline - IV 03/29/18 12:54 1,000 ml ONCE ONE Administration Medical Decision Making - Medical Decision Making 03/29/18 20:14 I received pt on signout; Dr. Noyola of surgery at [facility]. He successfully reduced the hernia and now pt is much more comfortable. NGT passed earlier by the resident. Pt is resting comfortably. SHe states that she has been unable to eat and move her bowels x 3 days. She will be given a dose of miralax at this time. Pt is otherwise NPO. She will be admitted to the hospitalist team med/surg. *DC/Admit/Observation/Transfer Diagnosis at time of Disposition: Ventral hernia with bowel obstruction - Discharge Dispostion Condition at time of disposition: Good - Referrals - Patient Instructions - Post Discharge Activity
--- NOTE | 2018-03-29 20:36 | HP ---
CHIEF COMPLAINT: left abdominal pain PCP:DR keith HISTORY OF PRESENT ILLNESS: The patient is a 77 year old female with a significant PMH of asthma , GERD, motion sickness, who presents to the emergency department with left sided abdominal pain for about 2 days. the pain started below her umbilicus and moves up associated with N/V , she vomited yellowish fluids,last meal was the night before , yesterday she only take her meds with sip of water ,daughter at bed side reports decrease oral intake for the last month. pt last BM was 2 days ago and was normal. She denies any fever, chills, diarrhea, but reports some burning sensation when she pass urine . She denies any chest pain, shortness of breath, headache and dizziness. The patient denies any other complaints. no sick contact or recent travel , pt is full code and her helth care proxy is daughter Derrick Babb phone number . ER course was notable for: (1)cbc, cmp (2)cxr (3)Abdomen/pelvic CT Recent Travel:denies PAST MEDICAL HISTORY: GERD, ASthma , motion sickness, PAST SURGICAL HISTORY: cholecystectomy Social History: Smoking:denies Alcohol:denies Drugs: denies Family History: Allergies No Known Drug Allergies Allergy (Verified 03/29/18 11:53) HOME MEDICATIONS: Home Medications Medication Instructions Recorded Esomeprazole Magnesium [Nexium 40 mg PO DAILY 07/17/16 24Hr] Acetaminophen [Tylenol .Regular 650 mg PO Q4H PRN #0 tablet 07/20/16 Strength -] Oseltamivir Phosphate [Tamiflu] 75 mg PO BID #10 capsule 09/01/17 Albuterol Sulfate Inhaler - 1 - 2 inh PO Q4H #1 inhaler 09/03/17 [Ventolin HFA Inhaler -] Miscellaneous Drug Not In Syst 1 each ASDIR #1 misc 09/03/17 [Outpatient Lab Test] Oseltamivir Phosphate [Tamiflu] 75 mg PO BID #7 capsule 09/03/17 Prednisone 30 mg PO DAILY #12 tablet 09/03/17 REVIEW OF SYSTEMS CONSTITUTIONAL: Absent: fever, chills, diaphoresis, generalized weakness, malaise, loss of appetite, weight change HEENT: Absent: rhinorrhea, nasal congestion, throat pain, throat swelling, difficulty swallowing, mouth swelling, ear pain, eye pain, visual changes CARDIOVASCULAR: Absent: chest pain, syncope, palpitations, irregular heart rate, lightheadedness , peripheral edema RESPIRATORY: Absent: cough, shortness of breath, dyspnea with exertion, orthopnea, wheezing, stridor, hemoptysis GASTROINTESTINAL: Absent: abdominal pain, abdominal distension, nausea, vomiting, diarrhea, constipation, melena, hematochezia GENITOURINARY: Absent: dysuria, frequency, urgency, hesitancy, hematuria, flank pain, genital pain MUSCULOSKELETAL: Knee pain Absent: myalgia, arthralgia, joint swelling, back pain, neck pain SKIN: Absent: rash, itching, pallor ENDOCRINE: Absent: unexplained weight gain, unexplained weight loss, NEUROLOGIC: Absent: headache, focal weakness or paresthesias, dizziness, unsteady gait, seizure, mental status changes, bladder or bowel incontinence PSYCHIATRIC: Absent: anxiety, depression, suicidal or homicidal ideation, hallucinations. PHYSICAL EXAMINATION Vital Signs - 24 hr 03/29/18 03/29/18 11:46 19:05 Temperature 97.3 F L 98.5 F Pulse Rate 79 Pulse Rate [ 74 Right Radial] Respiratory 16 17 Rate Blood Pressure 164/84 Blood Pressure 153/69 [Left Arm] O2 Sat by Pulse 100 95 Oximetry (%) GENERAL: Awake, alert, and fully oriented, in no acute distress. HEAD: Normal with no signs of trauma. EYES: Pupils equal, round and reactive to light, extraocular movements intact, sclera anicteric, conjunctiva clear. EARS, NOSE, THROAT: Ears normal, nares patent, oropharynx clear without exudates. Moist mucous membranes. NECK: Normal range of motion, LUNGS: Breath sounds equal, clear to auscultation bilaterally. No wheezes, and no crackles. No accessory muscle use. HEART: Regular rate and rhythm, normal S1 and S2 without murmur, rub or gallop. ABDOMEN: Soft, LLQ,christopher umbilical tenderness, not distended, normoactive bowel sounds, no guarding, no rebound, UPPER EXTREMITIES: 2+ pulses, warm, well-perfused. No cyanosis. No clubbing. No peripheral edema. LOWER EXTREMITIES: 2+ pulses, warm, well-perfused. No calf tenderness. No peripheral edema. NEUROLOGICAL: Cranial nerves II-XII intact. Normal speech. Normal gait. PSYCHIATRIC: Cooperative. Good eye contact. Appropriate mood and affect. SKIN: Warm, dry, normal turgor, Laboratory Results - last 24 hr 03/29/18 03/29/18 03/29/18 13:40 13:40 13:40 WBC 6.0 RBC 4.38 Hgb 12.7 Hct 38.4 MCV 87.6 MCH 29.1 MCHC 33.2 RDW 15.0 Plt Count 208 D MPV 9.8 Absolute Neuts (auto) 4.0 Neutrophils % 66.7 D Lymphocytes % 23.7 D Monocytes % 7.6 Eosinophils % 1.3 D Basophils % 0.7 Nucleated RBC % 0 Sodium 139 Potassium 4.4 Chloride 103 Carbon Dioxide 28 Anion Gap 8 BUN 9 Creatinine 0.7 Creat Clearance w eGFR > 60 Random Glucose 96 Calcium 8.8 Total Bilirubin 0.3 AST 42 H ALT 64 Alkaline Phosphatase 90 Troponin I 0.06 H Total Protein 8.5 H Albumin 3.9 Lipase 119 Urine Color Yellow Urine Appearance Slcloudy Urine pH 8.0 Ur Specific [place] 1.016 Urine Protein 1+ H Urine Glucose (UA) Negative Urine Ketones Negative Urine Blood 1+ H Urine Nitrite Negative Urine Bilirubin Negative Urine Urobilinogen Negative Ur Leukocyte Esterase 3+ H Urine WBC (Auto) 86 Urine RBC (Auto) 10 Ur Epithelial Cells Rare Urine Bacteria Many Urine Mucus Rare 03/29/18 17:28 WBC RBC Hgb Hct MCV MCH MCHC RDW Plt Count MPV Absolute Neuts (auto) Neutrophils % Lymphocytes % Monocytes % Eosinophils % Basophils % Nucleated RBC % Sodium Potassium Chloride Carbon Dioxide Anion Gap BUN Creatinine Creat Clearance w eGFR Random Glucose Calcium Total Bilirubin AST ALT Alkaline Phosphatase Troponin I 0.05 Total Protein Albumin Lipase Urine Color Urine Appearance Urine pH Ur Specific [place] Urine Protein Urine Glucose (UA) Urine Ketones Urine Blood Urine Nitrite Urine Bilirubin Urine Urobilinogen Ur Leukocyte Esterase Urine WBC (Auto) Urine RBC (Auto) Ur Epithelial Cells Urine Bacteria Urine Mucus CBC, BMP 03/29/18 13:40 03/29/18 13:40 04/01/2018 CXR : No acute pathology Abdominal CT scan In comparison to a prior CT exam of 09/11/2016 interval development of a midline ventral hernia is noted immediately inferior to the level of the umbilicus. This hernia contains small and possibly large bowel. There is associated mild proximal small bowel dilatation secondary to obstruction. Within the hernia sac note is made of mesenteric edema as well as a small amount of free fluid. The remainder of the exam demonstrates no definite interval change. Status post cholecystectomy. Possible hepatic steatosis. Possible subtle hepatic cirrhosis. ASSESSMENT/PLAN: 77 year old female with pmhx of GERD, Motion sickness, asthma , presented to the hospital due to lower abdominal pain , N/V, was found to have ventricle incarcerated hernia and was admitted to med-surg for further evaluation. # ventricle incarcerated hernia with small bowel obstruction * lower abdominal pain for 2 days , associated with N/V/low oral intake * noted on abdominal CT scan * surgery was consulted who reduce the hernia and for OR tomorrow * Abdominal X ray in AM * Pain control * NGT * IV fluids * NPO after mid night * type and screen * EKG * PT, PTT # GERD resume home meds # Nausea due to obstruction , * Zofran PRN # FEN * F: NS @ 75 CC/hr * E: WNL * N: NPO after mid night # Proph * DVTS: SCDS * GI: protonix 40 mg po daily # Dispo * Admit to med surge # Code : full code Please verify medication from pharmacy Visit type - Emergency Visit Emergency Visit: Yes ED Registration Date: 03/29/18 Care time: The patient presented to the Emergency Department on the above date and was hospitalized for further evaluation of their emergent condition. - New Patient This patient is new to me today: Yes Date on this admission: 03/29/18 - Critical Care Critical Care patient: No Hospitalist Screening - Colonoscopy Questionnaire Colonoscopy Questionnaire: Colonoscopy Questionnaire - Patient: 50 - 75 years old and never had a screening colonoscopy: Unknown History of colon or rectal polyps, or CA: Unknown History of IBD, Crohn's disease or UC: Unknown History of abdominal radiation therapy as a child: Unknown
--- NOTE | 2018-03-29 20:50 | CONSULT ---
Consult Consult Specialty:: Surgery Reason for Consultation:: Incarcerated ventral hernia - History Source History Provided By: Patient - Past Surgical History Past Surgical History: Yes: Hernia Repair (Umbilical hernia repair, with recurrence.) - Alcohol/Substance Use Hx Alcohol Use: No - Smoking History Smoking history: Never smoked Have you smoked in the past 12 months: No Home Medications - Allergies Allergies/Adverse Reactions: Allergies Allergy/AdvReac Type Severity Reaction Status Date / Time No Known Drug Allergies Allergy Verified 03/29/18 11:53 - Home Medications Home Medications: Ambulatory Orders Esomeprazole Magnesium [Nexium 24Hr] 40 mg PO DAILY 07/17/16 Acetaminophen [Tylenol .Regular Strength -] 650 mg PO Q4H PRN #0 tablet Oseltamivir Phosphate [Tamiflu] 75 mg PO BID #10 capsule 09/01/17 Albuterol Sulfate Inhaler - [Ventolin HFA Inhaler -] 1 - 2 inh PO Q4H #1 inhaler 09/03/17 Miscellaneous Drug Not In Syst [Outpatient Lab Test] 1 each ASDIR #1 misc Oseltamivir Phosphate [Tamiflu] 75 mg PO BID #7 capsule 09/03/17 Prednisone 30 mg PO DAILY #12 tablet 09/03/17 Physical Exam Vital Signs: Vital Signs Temperature 98.5 F 03/29/18 19:05 Pulse Rate 74 03/29/18 19:05 Respiratory Rate 17 03/29/18 19:05 Blood Pressure 153/69 03/29/18 19:05 O2 Sat by Pulse Oximetry (%) 95 03/29/18 19:05 Gastrointestinal: Yes: Abdomen, Obese (Obese abdomen , painful incarcerated ventral hernia below the umbilicus.) Labs: CBC, BMP 03/29/18 13:40 03/29/18 13:40 Imaging - Results Cat Scan: Report Reviewed, Image Reviewed Problem List - Problems (1) Ventral hernia with bowel obstruction Code(s): K43.6 - OTHER AND UNSP VENTRAL HERNIA WITH OBSTRUCTION, W/O GANGRENE (2) Asthma Code(s): J45.909 - UNSPECIFIED ASTHMA, UNCOMPLICATED (3) Abdominal pain Code(s): R10.9 - UNSPECIFIED ABDOMINAL PAIN Assessment/Plan Incarcerated ventral hernia. Patient was informed, the hernia was reduced , with the patient feeling better. Continue NG aspiration , IV fluids , keep NPO today , Abdominal X-ray in am.
[2018-03-29] MEDS ORDERED: ONDANSETRON 4 MG/2 ML VIAL IVPUSH PRN (21:44)
[2018-03-29] MEDS ORDERED: ACETAMINOPHEN 1000 MG/100 ML VIAL (NON FORMULARY) IVPB ONE (22:00)
[2018-03-29] MEDS ORDERED: ACETAMINOPHEN INJECTION 100 ML IVPB ONE (22:48)
[2018-03-29] MEDS: SODIUM CHLORIDE 1,000 ML IV SCH (22:55)
[2018-03-30 01:06] VITALS: BMI 29.2
[2018-03-30] MEDS: SODIUM CHLORIDE 1,000 ML IV SCH ×2 (01:12→22:26)
--- NOTE | 2018-03-30 06:50 | PN ---
Teaching Attending Note Name of Resident: Singh Nguyen ATTENDING PHYSICIAN STATEMENT I saw and evaluated the patient. I reviewed the resident's note and discussed the case with the resident. I agree with the resident's findings and plan as documented. SUBJECTIVE: OBJECTIVE: ASSESSMENT AND PLAN: patient admitted for hernia repair according to the family the pain started 2 days ago and has worsened, she has has a hx of bowel surgery in the past, and ever since then the pain has started surgery evaluated the patient and she is to be kept NPO PM for possible OR today
[2018-03-30 08:08] LABS: INR 1.35 (0.83-1.09); PROTHROMBIN TIME (PATIENT) 15.3 SEC (9.7-13.0)
[2018-03-30 08:11] LABS: ACTIVATED PTT 31.2 SECONDS (25.2-36.5)
[2018-03-30 08:16] LABS: BASO % 0.9 % (0-2.0); EOS % 3.9 % (0-4.5); HEMATOCRIT 36.8 % (32.4-45.2); HEMOGLOBIN 11.9 GM/dL (10.7-15.3); LYMPH % 39.8 % (8-40); MCH 28.4 pg (25.7-33.7); MCHC 32.4 g/dl (32.0-36.0); MEAN CELL VOLUME 87.7 fl (80-96); MEAN PLT VOLUME 8.8 fl (7.5-11.1); MONO % 11.6 % (3.8-10.2); NEUT % 43.8 % (42.8-82.8); PLATELET COUNT 182 K/MM3 (134-434); RDW 14.7 % (11.6-15.6); WHITE BLOOD COUNT 4.7 K/mm3 (4.0-10.0)
[2018-03-30 08:50] LABS: CHLORIDE 105 mmol/L (98-107); POTASSIUM 3.8 mmol/L (3.5-5.1); SODIUM 140 mmol/L (136-145)
[2018-03-30 08:58] LABS: ALBUMIN 3.3 g/dl (3.4-5.0); ALK PHOS 71 U/L (45-117); ANION GAP 7 MMOL/L (8-16); BILIRUBIN,TOTAL 0.5 mg/dL (0.2-1.0); BLOOD UREA NITROGEN 8 mg/dL (7-18); CO2 28 mmol/L (21-32); CREATININE 0.7 mg/dL (0.55-1.02); GLUCOSE,RANDOM 89 mg/dL (74-106); MAGNESIUM 2.1 mg/dL (1.8-2.4); PHOSPHOROUS 3.8 mg/dL (2.5-4.9); SGOT/AST 29 U/L (15-37); SGPT/ALT 48 U/L (12-78); TOT PROT 7.3 g/dl (6.4-8.2)
--- NOTE | 2018-03-30 09:41 | PN ---
Progress Note (short form) - Note Progress Note: asymptomatic. unclear if she is tolerating liquids. denies CP, SOB< fever, chills, N/V/C/D Current Medications Generic Name Dose Route Start Last Admin Trade Name Freq PRN Reason Stop Dose Admin Sodium Chloride 1,000 mls @ 75 mls/hr 03/29/18 21:45 03/30/18 01:12 Normal Saline - IV 03/31/18 11:04 75 mls/hr ASDIR NORM Administration Morphine Sulfate 2.5 mg 03/29/18 22:09 Morphine Sulfate IVPUSH Q6H PRN PAIN LEVEL 4 - 6 Ondansetron HCl 4 mg 03/29/18 21:44 03/29/18 22:30 Zofran Injection IVPUSH 4 mg Q6H PRN Administration NAUSEA Last Vital Signs Temp Pulse Resp BP Pulse Ox 97.7 F 72 18 139/78 96 03/30/18 04:16 03/30/18 04:16 03/30/18 04:16 03/30/18 04:16 03/30/18 00:54 General NAD CV S1 S2 + lungs CTA anteriorly Abdomen soft +distended tympanic normoactive Extremities no pedal edema CBCD WBC 4.7 K/mm3 (4.0-10.0) 03/30/18 07:00 RBC 4.20 M/mm3 (3.60-5.2) 03/30/18 07:00 Hgb 11.9 GM/dL (10.7-15.3) 03/30/18 07:00 Hct 36.8 % (32.4-45.2) 03/30/18 07:00 MCV 87.7 fl (80-96) 03/30/18 07:00 MCHC 32.4 g/dl (32.0-36.0) 03/30/18 07:00 RDW 14.7 % (11.6-15.6) 03/30/18 07:00 Plt Count 182 K/MM3 (134-434) 03/30/18 07:00 MPV 8.8 fl (7.5-11.1) D 03/30/18 07:00 CMP Sodium 140 mmol/L (136-145) 03/30/18 07:00 Potassium 3.8 mmol/L (3.5-5.1) 03/30/18 07:00 Chloride 105 mmol/L (98-107) 03/30/18 07:00 Carbon Dioxide 28 mmol/L (21-32) 03/30/18 07:00 Anion Gap 7 MMOL/L (8-16) L 03/30/18 07:00 BUN 8 mg/dL (7-18) 03/30/18 07:00 Creatinine 0.7 mg/dL (0.55-1.02) 03/30/18 07:00 Creat Clearance w eGFR > 60 (>60) 03/30/18 07:00 Calcium 8.0 mg/dL (8.5-10.1) L 03/30/18 07:00 Total Bilirubin 0.5 mg/dL (0.2-1.0) 03/30/18 07:00 AST 29 U/L (15-37) 03/30/18 07:00 ALT 48 U/L (12-78) 03/30/18 07:00 Alkaline Phosphatase 71 U/L (45-117) D 03/30/18 07:00 Total Protein 7.3 g/dl (6.4-8.2) 03/30/18 07:00 Albumin 3.3 g/dl (3.4-5.0) L 03/30/18 07:00 ASSESSMENT AND PLAN: 81yo F with PMH of bipolar disorder with depression and anxiety, HTN, HLD, hypothyroidism, scoliosis, GERD, hiatal hernia, diverticulosis, chronic constipation with multiple admission for fecal impaction admitted with abdominal pain, found with fecal impaction and acute pancreatitis, [facility] called on 03/22 for severe gastric distention/hypoxia/hypotension. 1. Severe gastric distension with hypotension/hypoxia ([facility] called 03/22), rapid resolution with NG decompression-slowly improving. will monitor if tolerating liquids. will start miralax and stool softeners to prevent development of constipation and fecal impaction. cont prokinetics. IVF and clinimix until tolerating diet. Surgery and Gi on board. 2. Hypotension suspect from severe gastric distension with hiatal hernia/ positive intrathoracic pressure 3. Hypoxia, likely from splinting from abdominal distension and atelectasis- now resolved 4. severe malnutrition- as evident by body habitus. on clinimix. will start supplements when tolerating more foods. start magic cup 5. RLL airspace disease, suspect from atelectasis from abdominal distension and poor effort, no clinical evidence of PNA or volume overload 6. Acute pancreatitis, ?unclear etiology- clinically appears it has resolved. TG WNL. unable to visualize pancreas on CT. U/s showing normal CBD or dilation. 7. 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 resolved. avoid nephrotoxic agents 8. Hypernatremia- resolved 9. Hyperchloremia 10. Bipolar disorder 11. DVT ppx-hep sq Visit type - Emergency Visit Emergency Visit: Yes ED Registration Date: 03/29/18 Care time: The patient presented to the Emergency Department on the above date and was hospitalized for further evaluation of their emergent condition. - New Patient This patient is new to me today: No - Critical Care Critical Care patient: No - Discharge Referral Referred to [facility] Med P.C.: No
[2018-03-30] MEDS ORDERED: SENNOSIDES/DOCUSATE COMBO (SENNA PLUS) TABLET (UD) PO PRN (09:57)
[2018-03-30] MEDS ORDERED: METOCLOPRAMIDE HCL INJECTION 10 MG/2 ML VIAL IVPUSH SCH (10:00)
--- NOTE | 2018-03-30 10:04 | PN ---
Progress Note (short form) - Note Progress Note: continues to have adbominal pain but much improved. states nausea and vomiting has resolved. denies CP, SOB< fever, chills, N/V/ +flatus. no BM x4days Current Medications Generic Name Dose Route Start Last Admin Trade Name Freq PRN Reason Stop Dose Admin Sodium Chloride 1,000 mls @ 75 mls/hr 03/29/18 21:45 03/30/18 01:12 Normal Saline - IV 03/31/18 11:04 75 mls/hr ASDIR NORM Administration Metoclopramide HCl 10 mg 03/30/18 10:00 Reglan Injection - IVPUSH Q8H-IV NORM Morphine Sulfate 2.5 mg 03/29/18 22:09 Morphine Sulfate IVPUSH Q6H PRN PAIN LEVEL 4 - 6 Ondansetron HCl 4 mg 03/29/18 21:44 03/29/18 22:30 Zofran Injection IVPUSH 4 mg Q6H PRN Administration NAUSEA Polyethylene Glycol 17 gm 03/30/18 10:00 Miralax (For Daily Use) - PO BID NORM Senna/Docusate Sodium 2 tablet 03/30/18 09:57 Pericolace - PO HS PRN CONSTIPATION Last Vital Signs Temp Pulse Resp BP Pulse Ox 97.7 F 72 18 139/78 96 03/30/18 04:16 03/30/18 04:16 03/30/18 04:16 03/30/18 04:16 03/30/18 00:54 General NAD CV S1 S2 RRR no murmur/rub/gallop Lungs CTA B/L no wheezing/rales/rhonchi Abdomen soft diffusely tender. not distended. normoactive BS CBCD WBC 4.7 K/mm3 (4.0-10.0) 03/30/18 07:00 RBC 4.20 M/mm3 (3.60-5.2) 03/30/18 07:00 Hgb 11.9 GM/dL (10.7-15.3) 03/30/18 07:00 Hct 36.8 % (32.4-45.2) 03/30/18 07:00 MCV 87.7 fl (80-96) 03/30/18 07:00 MCHC 32.4 g/dl (32.0-36.0) 03/30/18 07:00 RDW 14.7 % (11.6-15.6) 03/30/18 07:00 Plt Count 182 K/MM3 (134-434) 03/30/18 07:00 MPV 8.8 fl (7.5-11.1) D 03/30/18 07:00 CMP Sodium 140 mmol/L (136-145) 03/30/18 07:00 Potassium 3.8 mmol/L (3.5-5.1) 03/30/18 07:00 Chloride 105 mmol/L (98-107) 03/30/18 07:00 Carbon Dioxide 28 mmol/L (21-32) 03/30/18 07:00 Anion Gap 7 MMOL/L (8-16) L 03/30/18 07:00 BUN 8 mg/dL (7-18) 03/30/18 07:00 Creatinine 0.7 mg/dL (0.55-1.02) 03/30/18 07:00 Creat Clearance w eGFR > 60 (>60) 03/30/18 07:00 Calcium 8.0 mg/dL (8.5-10.1) L 03/30/18 07:00 Total Bilirubin 0.5 mg/dL (0.2-1.0) 03/30/18 07:00 AST 29 U/L (15-37) 03/30/18 07:00 ALT 48 U/L (12-78) 03/30/18 07:00 Alkaline Phosphatase 71 U/L (45-117) D 03/30/18 07:00 Total Protein 7.3 g/dl (6.4-8.2) 03/30/18 07:00 Albumin 3.3 g/dl (3.4-5.0) L 03/30/18 07:00 A/P 77yo F wtih PMH asthma and GERD presented with abdominal pain x2 days and found to have an incarcerated hernia and SBO 1. Incarcerated hernia- reduced by surgeon in the ER. will likely require surgery in the future. further recommendations per surgeon. pain control 2. SBO- now resolved seen on AXR. +flatus. put NGT to gravity. will d/w surgery to ensure no surgical interventions or planned for hernia and then will advance diet and remove NGT. 3. UTI- started on ceftriaxone day 2. f/u Cx 4. constipation- possible due to obstruction. start stool softeners. monitor for BM 5. asthma- no signs of exacerbation. 6. DVT ppx- start lovenox if no planned surgery Visit type - Emergency Visit Emergency Visit: Yes ED Registration Date: 03/29/18 Care time: The patient presented to the Emergency Department on the above date and was hospitalized for further evaluation of their emergent condition. - New Patient This patient is new to me today: Yes Date on this admission: 03/30/18 - Critical Care Critical Care patient: No - Discharge Referral Referred to [facility] Med P.C.: No
[2018-03-30] MEDS ORDERED: DEXTROSE 5%-WATER - 50 ML IVPB ONE (10:18)
[2018-03-30] MEDS ORDERED: cefTRIAXone SODIUM 1 GM VIAL ONE (10:18)
[2018-03-30] MEDS: CEFTRIAXONE 1 GM in DEXTROSE 5%-WATER - 50 ML IVPB SCH (10:24)
[2018-03-30] MEDS: POLYETHYLENE GLYCOL 3350 119 GM BTL PO SCH ×2 (10:27→22:22)
--- NOTE | 2018-03-30 11:24 | PN ---
Progress Note, Physician History of Present Illness: Patient feels better. Wants to eat. Focally tender at the site of abdominal , ventral hernia. - Current Medication List Current Medications: Active Medications Sodium Chloride (Normal Saline -) 1,000 mls @ 75 mls/hr IV ASDIR NORM Stop: 03/31/18 11:04 Last Admin: 03/30/18 01:12 Dose: 75 mls/hr Ceftriaxone Sodium 1 gm/ (Dextrose) 50 mls @ 100 mls/hr IVPB DAILY NORM; Protocol Last Admin: 03/30/18 10:24 Dose: 100 mls/hr Morphine Sulfate (Morphine Sulfate) 2.5 mg IVPUSH Q6H PRN PRN Reason: PAIN LEVEL 4 - 6 Ondansetron HCl (Zofran Injection) 4 mg IVPUSH Q6H PRN PRN Reason: NAUSEA Last Admin: 03/29/18 22:30 Dose: 4 mg Polyethylene Glycol (Miralax (For Daily Use) -) 17 gm PO BID NORM Last Admin: 03/30/18 10:27 Dose: 17 grams Senna/Docusate Sodium (Pericolace -) 2 tablet PO HS PRN PRN Reason: CONSTIPATION - Objective Vital Signs: Vital Signs Temperature 97.7 F 03/30/18 04:16 Pulse Rate 72 03/30/18 04:16 Respiratory Rate 18 03/30/18 04:16 Blood Pressure 139/78 03/30/18 04:16 O2 Sat by Pulse Oximetry (%) 96 03/30/18 00:54 Gastrointestinal: Yes: Other ( Not tender, no guarding.) Labs: CBC, BMP 03/30/18 07:00 03/30/18 07:00 INR, PTT INR 1.35 (0.83-1.09) H 03/30/18 07:00 Problem List - Problems (1) Ventral hernia with bowel obstruction Code(s): K43.6 - OTHER AND UNSP VENTRAL HERNIA WITH OBSTRUCTION, W/O GANGRENE (2) Asthma Code(s): J45.909 - UNSPECIFIED ASTHMA, UNCOMPLICATED (3) Abdominal pain Code(s): R10.9 - UNSPECIFIED ABDOMINAL PAIN Assessment/Plan Incarcerated ventral hernia with obstruction on imaging, reduced. Abdominal X-ray , shows no intestinal obstruction . Patient has chronic constipation , and strains to move her bowels, causing incarceration , and threat of bowel ischemia, and morbidity. Will plan repair of ventral hernia. Patient is obese, developed the hernia after cholecystectomy Patient and her son were explained in Frisian , of the presence of a ventral hernia, which she has had since her cholecystectomy. She was informed of incarceration of bowel that has been reduced , and risk of recurrence and srtangulation. Advised surgical repair , she has agreed and will be scheduled on Sunday , 04/01. Can remove NG tube and start clear liquids.
--- NOTE | 2018-03-30 18:54 | EKG ---
Test Reason : Blood Pressure : / mmHG Vent. Rate : 070 BPM Atrial Rate : 070 BPM P-R Int : 186 ms QRS Dur : 078 ms QT Int : 422 ms P-R-T Axes : 050 010 042 degrees QTc Int : 455 ms NORMAL SINUS RHYTHM WITH SINUS ARRHYTHMIA POSSIBLE INFERIOR INFARCT , AGE UNDETERMINED ABNORMAL ECG WHEN COMPARED WITH ECG OF 29-MAR-2018 21:45, NO SIGNIFICANT CHANGE WAS FOUND Confirmed by HAFSA ESPINAL, GREG ([id number]) on 03/30/2018 6:53:50 PM Referred By: Sydni PRYOR Confirmed By:GREG PEREYRA MD
--- NOTE | 2018-03-30 19:06 | EKG ---
Test Reason : Blood Pressure : / mmHG Vent. Rate : 079 BPM Atrial Rate : 079 BPM P-R Int : 188 ms QRS Dur : 082 ms QT Int : 392 ms P-R-T Axes : 050 015 044 degrees QTc Int : 449 ms NORMAL SINUS RHYTHM NORMAL ECG WHEN COMPARED WITH ECG OF 29-MAR-2018 13:19, NO SIGNIFICANT CHANGE WAS FOUND Confirmed by GREG PEREYRA MD ([id number]) on 03/30/2018 7:05:53 PM Referred By: Confirmed By:GREG PEREYRA MD
--- NOTE | 2018-03-30 19:09 | EKG ---
Test Reason : Blood Pressure : / mmHG Vent. Rate : 071 BPM Atrial Rate : 071 BPM P-R Int : 188 ms QRS Dur : 080 ms QT Int : 408 ms P-R-T Axes : 056 019 050 degrees QTc Int : 443 ms NORMAL SINUS RHYTHM NORMAL ECG NO PREVIOUS ECGS AVAILABLE Confirmed by GREG PEREYRA MD ([id number]) on 03/30/2018 7:09:30 PM Referred By: Confirmed By:GREG PEREYRA MD
[2018-03-30] MEDS: morphine SULFATE 4 MG/ML VIAL IVPUSH PRN (23:06)
[2018-03-30] MEDS ORDERED: PT OWN MED DRAWER 7, Y5N ONE (23:16)
[2018-03-31] MEDS ORDERED: cefTRIAXone SODIUM 1 GM VIAL ONE (09:33)
[2018-03-31] MEDS ORDERED: DEXTROSE 5%-WATER - 50 ML IVPB ONE (09:34)
[2018-03-31] MEDS: POLYETHYLENE GLYCOL 3350 119 GM BTL PO SCH ×2 (09:34→21:19)
[2018-03-31] MEDS: CEFTRIAXONE 1 GM in DEXTROSE 5%-WATER - 50 ML IVPB SCH (09:34)
--- NOTE | 2018-03-31 10:07 | PN ---
Teaching Attending Note Name of Resident: Niles Isaacs ATTENDING PHYSICIAN STATEMENT I saw and evaluated the patient. I reviewed the resident's note and discussed the case with the resident. I agree with the resident's findings and plan as documented. SUBJECTIVE:asymptomatic. tolerating diet. no more abdominal pain. Dneies CP, SOB , fever, chills, N/v/C/D. +BM today OBJECTIVE: Last Vital Signs Temp Pulse Resp BP Pulse Ox 98.2 F 65 18 121/63 97 03/31/18 06:00 03/31/18 06:00 03/31/18 06:00 03/31/18 06:00 03/30/18 21:00 General NAD Abdomen soft NT/ND ASSESSMENT AND PLAN: 77yo F wtih PMH asthma and GERD presented with abdominal pain x2 days and found to have an incarcerated hernia and SBO 1. Incarcerated hernia- reduced by surgeon in the ER. NPO tonight for surgical repair in the morning. further recommendations per surgeon. pain control 2. SBO- now resolved seen on AXR. tolerating liquid diet. 3. UTI- on ceftriaxone day 3. f/u Cx 4. constipation- possible due to obstruction. +BM today. cont stool softeners as on opiates 5. asthma- no signs of exacerbation. 6. DVT ppx- lovenox
[2018-03-31] MEDS ORDERED: ENOXAPARIN NA (PORCINE) 40 MG/0.4 ML DISP.SYRIN SQ ONE (10:30)
--- NOTE | 2018-03-31 11:55 | PN ---
Physical Exam: SUBJECTIVE: Patient seen and examined at bedside. Pt feels very well and is in good spirits. No pain at this time. OBJECTIVE: Vital Signs Period Temp Pulse Resp BP Sys/Piña Pulse Ox Last 24 Hr 98.2 F-98.7 F 65-86 18-21 118-142/63-81 97 Gen: well-appearing, nad, sitting in chair HEENT: NCAT, EOMI Neck: supple, no jvd Cardio: rrr, normal s1s2, no mrg Pulm: cta b/l Abd: obese, nondistended, + B/S, soft, nontender, borders of epigastric ventral hernia appreciated. Approximately 4cm. no bowel protruding Ext: 2+ pulses, no edema Active Medications Generic Name Dose Route Start Last Admin Trade Name Freq PRN Reason Stop Dose Admin Ceftriaxone Sodium 1 gm/ 50 mls @ 100 mls/hr 03/30/18 10:15 03/31/18 09:34 Dextrose IVPB 100 mls/hr DAILY NORM Administration Protocol Morphine Sulfate 2.5 mg 03/29/18 22:09 03/30/18 23:06 Morphine Sulfate IVPUSH 2.5 mg Q6H PRN Administration PAIN LEVEL 4 - 6 Ondansetron HCl 4 mg 03/29/18 21:44 03/29/18 22:30 Zofran Injection IVPUSH 4 mg Q6H PRN Administration NAUSEA Polyethylene Glycol 17 gm 03/30/18 10:00 03/31/18 09:34 Miralax (For Daily Use) - PO 17 grams BID NORM Administration Senna/Docusate Sodium 2 tablet 03/30/18 09:57 Pericolace - PO HS PRN CONSTIPATION ASSESSMENT/PLAN: Pt is a 77 y/o F with PMH Asthma, GERD, who presented to ED with L abdominal pain. Pt was found to have an incarcerated ventral hernia. #Ventral Hernia -Identified incarcerated on CT -Reduced -No pain at this time -surg consulted -for surgical repair tomorrow -NPO after midnight #UTI -UA pos -UCx gram neg rods -Rocephin day 3 #Constipation -had BM -stool softeners #FEN -not on fluids -lytes -liquid DM diet, NPO #PPx -Lovenox #Dispo -for surgery Niles Isaacs MD PGY-2, IM Visit type - Emergency Visit Emergency Visit: No - New Patient This patient is new to me today: No - Critical Care Critical Care patient: No - Discharge Referral Referred to [facility] Med P.C.: No
--- NOTE | 2018-03-31 13:57 | PN ---
Progress Note, Physician - Current Medication List Current Medications: Active Medications Ceftriaxone Sodium 1 gm/ (Dextrose) 50 mls @ 100 mls/hr IVPB DAILY NORM; Protocol Last Admin: 03/31/18 09:34 Dose: 100 mls/hr Morphine Sulfate (Morphine Sulfate) 2.5 mg IVPUSH Q6H PRN PRN Reason: PAIN LEVEL 4 - 6 Last Admin: 03/30/18 23:06 Dose: 2.5 mg Ondansetron HCl (Zofran Injection) 4 mg IVPUSH Q6H PRN PRN Reason: NAUSEA Last Admin: 03/29/18 22:30 Dose: 4 mg Polyethylene Glycol (Miralax (For Daily Use) -) 17 gm PO BID NORM Last Admin: 03/31/18 09:34 Dose: 17 grams Senna/Docusate Sodium (Pericolace -) 2 tablet PO HS PRN PRN Reason: CONSTIPATION - Objective Vital Signs: Vital Signs Temperature 98.2 F 03/31/18 06:00 Pulse Rate 65 03/31/18 06:00 Respiratory Rate 18 03/31/18 09:00 Blood Pressure 121/63 03/31/18 06:00 O2 Sat by Pulse Oximetry (%) 97 03/31/18 09:00 Labs: CBC, BMP 03/30/18 07:00 03/30/18 07:00 INR, PTT INR 1.35 (0.83-1.09) H 03/30/18 07:00 Problem List - Problems (1) Ventral hernia with bowel obstruction Code(s): K43.6 - OTHER AND UNSP VENTRAL HERNIA WITH OBSTRUCTION, W/O GANGRENE (2) Asthma Code(s): J45.909 - UNSPECIFIED ASTHMA, UNCOMPLICATED (3) Abdominal pain Code(s): R10.9 - UNSPECIFIED ABDOMINAL PAIN Assessment/Plan Surgery: patient still has pain over her abdominal hernia site, but has no intestinal obstruction . Abdomen is soft ,has incarcerated ventral hernia. She is on the addon list for tomorrow. She has been explained of her surgery and understands. Risks , benefits and complications explained. NPO from midnight.
[2018-04-01 07:48] LABS: BASO % 1.1 % (0-2.0); EOS % 4.1 % (0-4.5); HEMATOCRIT 37.6 % (32.4-45.2); LYMPH % 40.6 % (8-40); MCH 27.9 pg (25.7-33.7); MCHC 31.9 g/dl (32.0-36.0); MEAN CELL VOLUME 87.3 fl (80-96); MEAN PLT VOLUME 8.4 fl (7.5-11.1); NEUT % 42.2 % (42.8-82.8); PLATELET COUNT 189 K/MM3 (134-434); RBC 4.31 M/mm3 (3.60-5.2); WHITE BLOOD COUNT 4.3 K/mm3 (4.0-10.0)
[2018-04-01 08:10] LABS: ANION GAP 4 MMOL/L (8-16); BLOOD UREA NITROGEN 9 mg/dL (7-18); CALCIUM 8.5 mg/dL (8.5-10.1); CHLORIDE 106 mmol/L (98-107); CO2 27 mmol/L (21-32); CREATININE 0.7 mg/dL (0.55-1.02); GLUCOSE,RANDOM 105 mg/dL (74-106); POTASSIUM 3.5 mmol/L (3.5-5.1); SODIUM 137 mmol/L (136-145)
[2018-04-01] MEDS ORDERED: cefTRIAXone SODIUM 1 GM VIAL ONE (09:24)
[2018-04-01] MEDS ORDERED: DEXTROSE 5%-WATER - 50 ML IVPB ONE (09:25)
[2018-04-01] MEDS: POLYETHYLENE GLYCOL 3350 119 GM BTL PO SCH (09:25)
[2018-04-01] MEDS: CEFTRIAXONE 1 GM in DEXTROSE 5%-WATER - 50 ML IVPB SCH (09:31)
[2018-04-01] MEDS: morphine SULFATE 4 MG/ML VIAL IVPUSH PRN (11:26)
--- NOTE | 2018-04-01 12:51 | PN ---
Teaching Attending Note Name of Resident: Niles Isaacs ATTENDING PHYSICIAN STATEMENT I saw and evaluated the patient. I reviewed the resident's note and discussed the case with the resident. I agree with the resident's findings and plan as documented. SUBJECTIVE:asymptomatic. denies CP, SOB, fever, chills, N/V/C/D OBJECTIVE: Last Vital Signs Temp Pulse Resp BP Pulse Ox 97.8 F 78 18 152/88 99 04/01/18 10:00 04/01/18 10:00 04/01/18 10:00 04/01/18 10:00 04/01/18 09:00 General NAD Abdomen soft NT/ND ASSESSMENT AND PLAN: 77yo F wtih PMH asthma and GERD presented with abdominal pain x2 days and found to have an incarcerated hernia and SBO 1. Incarcerated hernia- reduced by surgeon in the ER. NPO for surgical repair. further recommendations per surgeon. pain control 2. SBO- now resolved seen on AXR. tolerating liquid diet. 3. UTI- on ceftriaxone day 4. f/u Cx 4. constipation- possible due to obstruction. +BM yesterday. cont stool softeners as on opiates 5. asthma- no signs of exacerbation. 6. DVT ppx- lovenox 7. spoke wtih daughter present at bedside. all questions answered. verbalized understanding and agreement with plan
[2018-04-01] MEDS ORDERED: BUPIVACAINE HCL/PF 0.5% (5MG/ML) 10 ML VIAL ONE (13:34)
[2018-04-01] MEDS ORDERED: PROMETHAZINE HCL 25 MG/1 ML VIAL IVPUSH PRN (13:43)
[2018-04-01] MEDS ORDERED: ONDANSETRON 4 MG/2 ML VIAL IVPUSH PRN ×3 (13:43→16:53)
[2018-04-01] MEDS ORDERED: LACTATED RINGERS SOLUTION 1,000 ML IV SCH (13:45)
[2018-04-01] MEDS ORDERED: MIDAZOLAM HCL 2 MG/2 ML SINGLE DOSE VIAL ONE (14:50)
[2018-04-01] MEDS ORDERED: DEXAMETHASONE SOD PHOSPHATE 4 MG/1 ML VIAL ONE (14:50)
[2018-04-01] MEDS ORDERED: KETOROLAC TROMETHAMINE 30 MG/1 ML VIAL ONE (14:50)
[2018-04-01] MEDS ORDERED: ROCURONIUM BROMIDE 50 MG/5 ML VIAL ONE (14:50)
[2018-04-01] MEDS ORDERED: LIDOCAINE HCL/PF 2% SDV 5ML VIAL ONE (14:52)
[2018-04-01] MEDS ORDERED: GLYCOPYRROLATE 0.2 MG/1 ML VIAL ONE (16:31)
[2018-04-01] MEDS ORDERED: NEOSTIGMINE METHYLSULFATE 0.5 MG/ML - 10 ML MDV ONE (16:31)
--- NOTE | 2018-04-01 16:49 | OP ---
Operative Note - Note: Operative Date: 04/01/18 Pre-Operative Diagnosis: Incarcerated ventral hernia. Operation: Repair of incarcerated ventral hernia with 11cm x 14 cm , ventrio mesh. Findings: Large infraumbilical incarcerated ventral hernia 5 cms in diameter. Post-Operative Diagnosis: Same as Pre-op Surgeon: Janes Noyola Veneer Sawyer: Lisa Harris Anesthesia: General Specimens Removed: Hernial sa. Estimated Blood Loss (mls): 20 Operative Report Dictated: Yes
[2018-04-01] MEDS ORDERED: morphine SULFATE 4 MG/ML VIAL IVPUSH PRN (16:53)
[2018-04-01] MEDS ORDERED: METOPROLOL TARTRATE 5 MG/5 ML VIAL ONE (16:54)
[2018-04-01] MEDS ORDERED: BUPIVACAINE HCL/PF (5 MG/ML) 30 ML VIAL IJ ONE (16:58)
--- NOTE | 2018-04-01 17:06 | PN ---
Physical Exam: SUBJECTIVE: Patient seen and examined at bedside. No pain at this time. OBJECTIVE: Vital Signs Period Temp Pulse Resp BP Sys/Piña Pulse Ox Last 24 Hr 97.8 F-98.7 F 66-78 18-20 124-153/70-89 97-99 exam unchanged from yest Gen: well-appearing, nad, sitting in bed HEENT: NCAT, EOMI Neck: supple, no jvd Cardio: rrr, normal s1s2, no mrg Pulm: cta b/l Abd: obese, nondistended, + B/S, soft, nontender, borders of epigastric ventral hernia appreciated. Approximately 4cm. no bowel protruding Ext: 2+ pulses, no edema Laboratory Results - last 24 hr 04/01/18 04/01/18 07:30 07:30 WBC 4.3 RBC 4.31 Hgb 12.0 Hct 37.6 MCV 87.3 MCH 27.9 MCHC 31.9 L RDW 15.0 Plt Count 189 MPV 8.4 Absolute Neuts (auto) 1.8 Neutrophils % 42.2 L Lymphocytes % 40.6 H Monocytes % 12.0 H Eosinophils % 4.1 Basophils % 1.1 Nucleated RBC % 0 Sodium 137 Potassium 3.5 Chloride 106 Carbon Dioxide 27 Anion Gap 4 L BUN 9 Creatinine 0.7 Creat Clearance w eGFR > 60 Random Glucose 105 Calcium 8.5 Active Medications Generic Name Dose Route Start Last Admin Trade Name Freq PRN Reason Stop Dose Admin Ceftriaxone Sodium 1 gm/ 50 mls @ 100 mls/hr 04/02/18 10:00 Dextrose IVPB DAILY [facility] Protocol Lactated Ringer's 1,000 mls @ 125 mls/hr 04/01/18 16:53 Lactated Ringers Solution IV ASDIR [facility] Morphine Sulfate 2.5 mg 04/01/18 16:53 Morphine Sulfate IVPUSH Q6H PRN PAIN LEVEL 4 - 6 Ondansetron HCl 4 mg 04/01/18 16:53 Zofran Injection IVPUSH Q6H PRN NAUSEA Ondansetron HCl 4 mg 04/01/18 16:53 Zofran Injection IVPUSH Q6H PRN NAUSEA AND/OR VOMITING Senna/Docusate Sodium 2 tablet 04/01/18 22:00 Pericolace - PO HS PRN CONSTIPATION ASSESSMENT/PLAN: Pt is a 77 y/o F with PMH Asthma, GERD, who presented to ED with L abdominal pain. Pt was found to have an incarcerated ventral hernia. #Ventral Hernia -Identified incarcerated on CT -Reduced -No pain at this time -surg consulted -for surgical repair today #UTI -UA pos -UCx gram neg rods -Rocephin day 3 #Constipation -had BM -stool softeners #FEN -not on fluids -lytes -liquid DM diet, NPO #PPx -Lovenox #Dispo -for surgery Niles Isaacs MD PGY-2, IM Visit type - Emergency Visit Emergency Visit: No - New Patient This patient is new to me today: No - Critical Care Critical Care patient: No - Discharge Referral Referred to [facility] Med P.C.: No
--- NOTE | 2018-04-01 17:17 | SURG ---
Surgery Furniture Mechanic Note Furniture Mechanic: Lisa Harris PA-C Date of Service: 04/01/18 Diagnosis: Incarcerated ventral hernia. Procedure: Repair of incarcerated ventral hernia with 11cm x 14 cm , ventrio mesh. I was present for the entirety of the operative procedure. For further detail, please refer to operative report. Visit type - Case Type Case Type: Scheduled - Emergency Emergency Visit: Yes ED Registration Date: 03/29/18 Care time: The patient presented to the Emergency Department on the above date and was hospitalized for further evaluation of their emergent condition. - New patient This patient is new to me today: Yes Date on this admission: 04/01/18
[2018-04-01] MEDS: LACTATED RINGERS SOLUTION 1,000 ML IV SCH (18:35)
[2018-04-01] MEDS ORDERED: SENNOSIDES/DOCUSATE COMBO (SENNA PLUS) TABLET (UD) PO PRN (22:00)
[2018-04-02] MEDS: LACTATED RINGERS SOLUTION 1,000 ML IV SCH (02:40)
[2018-04-02 07:43] LABS: BASO % 0.1 % (0-2.0); HEMATOCRIT 34.9 % (32.4-45.2); HEMOGLOBIN 11.2 GM/dL (10.7-15.3); LYMPH % 18.1 % (8-40); MCH 28.4 pg (25.7-33.7); MCHC 32.2 g/dl (32.0-36.0); MEAN CELL VOLUME 87.9 fl (80-96); MEAN PLT VOLUME 8.7 fl (7.5-11.1); MONO % 9.8 % (3.8-10.2); PLATELET COUNT 199 K/MM3 (134-434); RBC 3.97 M/mm3 (3.60-5.2); RDW 14.8 % (11.6-15.6); WHITE BLOOD COUNT 7.6 K/mm3 (4.0-10.0)
[2018-04-02 08:02] LABS: ANION GAP 7 MMOL/L (8-16); BLOOD UREA NITROGEN 11 mg/dL (7-18); CALCIUM 8.5 mg/dL (8.5-10.1); CHLORIDE 106 mmol/L (98-107); CO2 28 mmol/L (21-32); GLUCOSE,RANDOM 95 mg/dL (74-106); POTASSIUM 4.3 mmol/L (3.5-5.1); SODIUM 141 mmol/L (136-145)
[2018-04-02 08:04] LABS: CREATININE 0.6 mg/dL (0.55-1.02)
--- NOTE | 2018-04-02 08:14 | PN ---
Progress Note (short form) - Note Progress Note: Post op day#1.S/P Ventral hernia repair with a mesh under GA uneventful.Patient stable.No Any anesthesia related problem.Patient Dc from the anesthesia care.
[2018-04-02] MEDS ORDERED: ACETAMINOPHEN 1000 MG/100 ML VIAL (NON FORMULARY) IVPB PRN (08:28)
--- NOTE | 2018-04-02 08:32 | PN ---
Teaching Attending Note Name of Resident: Nilse Isaacs ATTENDING PHYSICIAN STATEMENT I saw and evaluated the patient. I reviewed the resident's note and discussed the case with the resident. I agree with the resident's findings and plan as documented with exceptions below. SUBJECTIVE: patient seen and examined. minimal abdominal pain around surgical site. Tolerating diet well, ambulating, passing gas. No urinary symptoms or concerns. OBJECTIVE: Vital Signs Period Temp Pulse Resp BP Sys/Piña Pulse Ox Last 24 Hr 97.6 F-98.7 F 60-82 16-20 123-163/56-90 96-99 Intake & Output 03/30/18 03/31/18 04/01/18 04/02/18 23:59 23:59 23:59 23:59 Intake Total 1290 1765 1150 1500 Output Total 100 200 Balance 1190 1565 1150 1500 Weight 154 lb 7 oz General: lying in bed in no acute distress Abdomen: soft, obese, mild tenderness around incision/dressing site, no voluntary or involuntary guarding or rigidity, positive bowel sounds Chest: CTAB, no rales or wheezing Extremities: no edema Home Medications Medication Instructions Recorded Linaclotide [Linzess] 72 mcg PO DAILY PRN 03/29/18 Meloxicam 15 mg PO DAILY 03/29/18 Omeprazole 40 mg PO DAILY 03/29/18 Active Medications Acetaminophen (Ofirmev Injection -) 1,000 mg IVPB Q6H PRN PRN Reason: PAIN Ceftriaxone Sodium 1 gm/ (Dextrose) 50 mls @ 100 mls/hr IVPB DAILY NORM; Protocol Lactated Ringer's (Lactated Ringers Solution) 1,000 mls @ 125 mls/hr IV ASDIR NORM Last Admin: 04/02/18 02:40 Dose: 125 mls/hr Ondansetron HCl (Zofran Injection) 4 mg IVPUSH Q6H PRN PRN Reason: NAUSEA Last Admin: 04/01/18 19:55 Dose: 4 mg Ondansetron HCl (Zofran Injection) 4 mg IVPUSH Q6H PRN PRN Reason: NAUSEA AND/OR VOMITING Senna/Docusate Sodium (Pericolace -) 2 tablet PO HS PRN PRN Reason: CONSTIPATION Laboratory Results - last 24 hr 04/01/18 04/02/18 04/02/18 07:30 06:50 06:50 WBC 4.3 7.6 RBC 4.31 3.97 Hgb 12.0 11.2 Hct 37.6 34.9 MCV 87.3 87.9 MCH 27.9 28.4 MCHC 31.9 L 32.2 RDW 15.0 14.8 Plt Count 189 199 MPV 8.4 8.7 Absolute Neuts (auto) 1.8 5.5 Neutrophils % 42.2 L 72.0 D Lymphocytes % 40.6 H 18.1 D Monocytes % 12.0 H 9.8 Eosinophils % 4.1 0.0 D Basophils % 1.1 0.1 Nucleated RBC % 0 0 Sodium 141 Potassium 4.3 Chloride 106 Carbon Dioxide 28 Anion Gap 7 L BUN 11 Creatinine 0.6 Creat Clearance w eGFR > 60 Random Glucose 95 Calcium 8.5 Microbiology 03/29/18 13:40 Urine - Urine Clean Catch Urine Culture - Preliminary Gram Negative Philip ASSESSMENT AND PLAN: 77yo F wtih PMH asthma and GERD presented with abdominal pain x2 days and found to have an incarcerated ventral hernia/SBO. -Incarcerated ventral hernia/SBO s/p mesh repair 04/01 -SBO, resolved -Lower uncomplicated UTi -Constipation -Asthma -GERD Plan: PO as tolerated. Surgery input noted. Ambulating tolerating, diet, passing gas, Cleared by surgery for d. c urine cx noted, asymptomatic, no systemic s/s concerning for infection, s/p 5 days of ceftriaxone, d/c. Bowel regimen. Encourage ambulation, incentive spirometry. DVTPPX lovenox Dispo d/c home today with outpatient surgery follow up. Plan discussed with patient and daughter at bedside in detail, all questions answered. Both relay understanding and in agreement with the plan.
[2018-04-02] MEDS ORDERED: cefTRIAXone SODIUM 1 GM VIAL ONE (08:45)
[2018-04-02] MEDS ORDERED: DEXTROSE 5%-WATER - 50 ML IVPB ONE (08:45)
--- NOTE | 2018-04-02 08:55 | OP ---
DATE OF OPERATION: DATE OF DICTATION: 04/01/2018 SEX: Female. AGE: [age] years old. PREOPERATIVE DIAGNOSIS: Incarcerated ventral hernia. POSTOPERATIVE DIAGNOSIS: Incarcerated ventral hernia. OPERATIVE PROCEDURE: Repair of incarcerated ventral hernia with 11 cm x 14 cm Ventrio mesh and lysis of adhesions. SURGEON: Brooke Noyola MD BAND MANAGER: JENNIFER Lamas ANESTHESIA: General anesthesia. OPERATIVE DESCRIPTION: This 77-year-old woman was admitted with severe abdominal pain and a large mass in the intraumbilical region of the abdomen and was found to have a large incarcerated hernia with small bowel and colon within the sac. This was reduced in the emergency room. She was then followed. The obstruction was relieved. She was brought in for repair of the hernia. Consent was obtained. Risks, benefits, and complications had been discussed with the patient. Patient previously had laparoscopic cholecystectomy, and she said the hernia appeared right after the procedure. Patient was given antibiotics prior to the procedure. Timeout was called. The abdomen was painted and draped. A vertical incision was made about 4-5 cm through the umbilicus. It was deepened through the skin and subcutaneous fat. A large sac was identified. This was carefully from the rest of the fat and carried down all the way to the abdominal wall. The abdominal wall was then defined. This was from the sac and peritoneum circumferentially. This was about 5 cm in diameter. The peritoneum was then from the anterior abdominal wall on its posterior aspect. The sac was then suture ligated at the base with 2-0 Vicryl sutures. As I said, the defect was 5 cm in diameter. The peritoneum was from the undersurface of the abdominal wall circumferentially. A 14 cm x 11 cm Ventrio mesh was then introduced into the abdominal cavity. This was anchored to the posterior surface of the abdominal wall on either side of the midline and around the umbilicus, as well as inferiorly below the defect on either side with 2-0 Vicryl sutures passed through the abdominal wall, through and through the mesh, and brought back through the abdominal wall. Once this was done, the mesh was placed within the abdominal cavity and brought forward to stay against the undersurface of the abdominal wall . The sutures were then tied. The defect was adequately covered. The Prolene surface of the mesh was then anchored to the edges of the abdominal wall circumferentially with interrupted 2-0 Vicryl sutures. The defect was then carefully approximated with 2-0 Vicryl sutures. Hemostasis was satisfactory. The wound was thoroughly irrigated, and the dermal layer of the skin was approximated with 3-0 Vicryl sutures, and the skin approximated with 4-0 Monocryl sutures in a running subcuticular fashion. An abdominal binder was applied. Sterile dressing was placed. Estimated blood loss was about 20 mL. Sponge count was correct. Patient tolerated the procedure well, was extubated, and sent to the recovery room in satisfactory and stable condition. Pascale [id number]
[2018-04-02] MEDS ORDERED: CEFTRIAXONE 1 GM in DEXTROSE 5%-WATER - 50 ML IVPB SCH (10:00)
--- NOTE | 2018-04-02 11:11 | PN ---
Progress Note, Physician - Current Medication List Current Medications: Active Medications Acetaminophen (Ofirmev Injection -) 1,000 mg IVPB Q6H PRN PRN Reason: PAIN Last Admin: 04/02/18 08:59 Dose: 1,000 mg Ceftriaxone Sodium 1 gm/ (Dextrose) 50 mls @ 100 mls/hr IVPB DAILY NORM; Protocol Last Admin: 04/02/18 09:46 Dose: 100 mls/hr Lactated Ringer's (Lactated Ringers Solution) 1,000 mls @ 125 mls/hr IV ASDIR NORM Last Admin: 04/02/18 02:40 Dose: 125 mls/hr Ondansetron HCl (Zofran Injection) 4 mg IVPUSH Q6H PRN PRN Reason: NAUSEA Last Admin: 04/01/18 19:55 Dose: 4 mg Ondansetron HCl (Zofran Injection) 4 mg IVPUSH Q6H PRN PRN Reason: NAUSEA AND/OR VOMITING Senna/Docusate Sodium (Pericolace -) 2 tablet PO HS PRN PRN Reason: CONSTIPATION - Objective Vital Signs: Vital Signs Temperature 98.2 F 04/02/18 06:49 Pulse Rate 82 04/02/18 06:49 Respiratory Rate 20 04/02/18 06:49 Blood Pressure 127/71 04/02/18 06:49 O2 Sat by Pulse Oximetry (%) 99 04/01/18 18:35 Labs: CBC, BMP 04/02/18 06:50 04/02/18 06:50 INR, PTT INR 1.35 (0.83-1.09) H 03/30/18 07:00 Problem List - Problems (1) Ventral hernia with bowel obstruction Code(s): K43.6 - OTHER AND UNSP VENTRAL HERNIA WITH OBSTRUCTION, W/O GANGRENE (2) Asthma Code(s): J45.909 - UNSPECIFIED ASTHMA, UNCOMPLICATED (3) Abdominal pain Code(s): R10.9 - UNSPECIFIED ABDOMINAL PAIN Assessment/Plan Postop .patient is out of bed , ambulating. Abdomen is soft, wound is clean. Discharge home, follow up in my office.
[2018-04-02 11:37] VITALS: BP 137/75; PULSE 73; TEMP 98
--- NOTE | 2018-04-02 12:49 | DS ---
Physical Exam: SUBJECTIVE: Patient seen and examined at bedside. No acute events. Pt tolerating PO and has been passing gas. Denies pain OBJECTIVE: Vital Signs Period Temp Pulse Resp BP Sys/Piña Pulse Ox Last 24 Hr 97.6 F-98.7 F 60-82 16-20 123-163/56-90 96-99 PHYSICAL EXAM Gen: NAD lying in bed HEENT: NCAT, EOMI Neck: supple no jvd Cardio: rrr, normal s1s2, no mrg Pulm: cta b/l Abd: abdominal binder. dressing cdi. tender to palpation at surgical site. +bs LABS Laboratory Results - last 24 hr 04/02/18 04/02/18 06:50 06:50 WBC 7.6 RBC 3.97 Hgb 11.2 Hct 34.9 MCV 87.9 MCH 28.4 MCHC 32.2 RDW 14.8 Plt Count 199 MPV 8.7 Absolute Neuts (auto) 5.5 Neutrophils % 72.0 D Lymphocytes % 18.1 D Monocytes % 9.8 Eosinophils % 0.0 D Basophils % 0.1 Nucleated RBC % 0 Sodium 141 Potassium 4.3 Chloride 106 Carbon Dioxide 28 Anion Gap 7 L BUN 11 Creatinine 0.6 Creat Clearance w eGFR > 60 Random Glucose 95 Calcium 8.5 HOSPITAL COURSE: Date of Admission:03/29/18 Date of Discharge: 04/02/18 Pt is a 77 y/o F with PMH Asthma, GERD, who presented to ED with L abdominal pain. Pt was found to have an incarcerated ventral hernia. Ventral Hernia identified as incarcerated on CT. Was reduced by surgeon. Pt has not had pain. Hernia was surgically repaired. Pt given instructions to use incentive spirometer and abdominal binder, to monitor for bleeding or increased pain at surgical site. Pt instructed to follow up with surgeon and was given appointment. Pt was found to have UTI. UA was pos, and UCx revealed gram neg rods. She was treated with Rocephin. Pt had constipation on admission. She was given stool softeners and had a BM. Pt is stable for dc Minutes to complete discharge: 45 Discharge Summary Reason For Visit: OBSTRUCTED VENTRAL HERNIA Condition: Good - Instructions Diet, Activity, Other Instructions: You were in the hospital because of a hernia. If you have any symptoms like fever, chills, pain, nausea, vomiting, inability to eat, please call your doctor or return to the emergency department. If you have bleeding from your surgical wound, call your doctor or return to the emergency department. Follow up with Dr. Noyola. Call [phone], to be seen next , 04/11/2018at 4.15 pm. You may shower daily. Use an abdominal binder when ambulating. Referrals: Janes Noyola MD [Staff Physician] - 1 Week Disposition: HOME - Home Medications Comprehensive Discharge Medication List: Ambulatory Orders Linaclotide [Linzess] 72 mcg PO DAILY PRN 03/29/18 Meloxicam 15 mg PO DAILY 03/29/18 Omeprazole 40 mg PO DAILY 03/29/18 This patient is new to me today: No Emergency Visit: No Critical Care patient: No - Discharge Referral Referred to [facility] Med P.C.: No
--- NOTE | 2018-04-04 17:39 | PATH ---
Surgical Pathology Report Patient Name: TIFFANI GAUTAM [facility]. Rec. #: [id number] /Age/Gender: 1940 (Age: 77) / F Account: [id number] Location: [address] [place] [address] Taken: 04/01/2018 Received: 04/02/2018 Reported: 04/04/2018 Physicians: Brooke Noyola M.D. Specimen(s) Received A: OMENTUM B: HERNIA SAC Clinical History Repair incarcerated ventral hernia Final Diagnosis A. OMENTUM, EXCISION: ADIPOSE TISSUE SHOWING GRANULATION TISSUE FORMATION. B. HERNIA SAC, EXCISION: HERNIA SAC. Electronically Signed Lisa Núñez M.D. Gross Description A. Received in formalin labeled "omentum," is a 4.0 x 3.2 x 0.5 cm aggregate of murray fibrous tissue admixed with yellow, lobulated adipose tissue. Client Technical Specialist sections are submitted in one cassette. B. Received in formalin labeled "hernia sac," is a 6.0 x 4.5 x 1.5 cm portion of murray-vazquez fibromembranous tissue with attached fat, consistent with a hernia sac. Client Technical Specialist sections are submitted in one cassette. 04/02/201804/02/2018
== END 2018-04-02 15:31 | disposition home or self-care (01) | DRG 354 ==
LOC: JER 11:31 → JERBED 20:15 → J6S 23:42
PROVIDERS: ADMIT Internal Medicine; ATTEND Hospitalist
PROC: 3E0M05Z Introduction of Adhesion Barrier into Peritoneal Cavity, Open Approach (ICD-10-PCS; 2018-04-01)
PROC: 0WUF0JZ Supplement Abdominal Wall with Synthetic Substitute, Open Approach (ICD-10-PCS; principal; 2018-04-01 14:00)
DX: K43.6 Other and unspecified ventral hernia with obstruction, without gangrene (principal); K91.30 Postprocedural intestinal obstruction, unspecified as to partial versus complete; J45.909 Unspecified asthma, uncomplicated; K21.9 Gastro-esophageal reflux disease without esophagitis; E66.9 Obesity, unspecified; Z68.28 Body mass index [BMI] 28.0-28.9, adult
CPT/HCPCS: 36415; 71045-TC-FY; 74019-TC-FY; 74177-TC; 80048; 80053; 81003; 81015; 83690; 83735; 84100; 84484; 85025; 85610; 85730; 86850; 86900; 86901; 87086; 88302-TC; 88305-TC; 93005; 93010; 94760; 97116-GP; 97161-GP; 99284-25; J0131; J7030

== ENCOUNTER 2018-04-06 18:25 | Inpatient (IN) | payer OTHER ==
[2018-04-06] MEDS ORDERED: SODIUM CHLORIDE 1,000 ML IV STA (19:39)
[2018-04-06] MEDS ORDERED: morphine CARPU-JECT 4 MG/1 ML DISP.SYRIN IVPUSH ONE (19:39)
[2018-04-06] MEDS ORDERED: ONDANSETRON 4 MG/2 ML VIAL IVPUSH ONE (19:39)
--- NOTE | 2018-04-06 19:48 | PDOC ---
History of Present Illness - General Chief Complaint: Pain, Acute Stated Complaint: SURGICAL ABD COMPLICATION Time Seen by Provider: 04/06/18 19:20 History Source: Patient Exam Limitations: Language Barrier (Telephone full time staff interpreter used) - History of Present Illness Initial Comments: 04/06/18 19:48 Patient is a 77F with history of asthma, GERD, s/p cholecystectomy here today complaining of abdominal pain and vomiting that started today. Endorses associated several episodes of non-billious non-bloody vomiting. Endorses chills , denies fevers. Abdominal pain is diffuse. Endorses dysuria. Last bowel movement was today. Patient had ventral hernia repair by Dr Noyola on Sunday. Denies chest pain, shortness of breath. Past History - Past Medical History Allergies/Adverse Reactions: Allergies Allergy/AdvReac Type Severity Reaction Status Date / Time No Known Drug Allergies Allergy Verified 04/06/18 18:47 Home Medications: Ambulatory Orders Unobtainable 04/06/18 Asthma: Yes (RESOLVED) Cancer: No Cardiac Disorders: No CVA: No COPD: No CHF: No Dementia: No Diabetes: No GI Disorders: Yes (REFLUX) Disorders: No HTN: No Hypercholesterolemia: No Liver Disease: No Seizures: No Thyroid Disease: No - Surgical History Abdominal Surgery: No Appendectomy: No Cardiac Surgery: No Cholecystectomy: Yes Lung Surgery: No Neurologic Surgery: No Orthopedic Surgery: No - Suicide/Smoking/Psychosocial Hx Smoking History: Never smoked Have you smoked in the past 12 months: No Information on smoking cessation initiated: No Hx Alcohol Use: No Drug/Substance Use Hx: No Substance Use Type: None Review of Systems - Review of Systems Comments:: 04/06/18 19:56 GENERAL/CONSTITUTIONAL: No fever or chills. No weakness. HEAD, EYES, EARS, NOSE AND THROAT: No change in vision. No sore throat. CARDIOVASCULAR: No chest pain or shortness of breath RESPIRATORY: No cough, wheezing, or hemoptysis. GASTROINTESTINAL: +nausea, vomiting. No diarrhea or constipation. GENITOURINARY: No dysuria, frequency, or change in urination. MUSCULOSKELETAL: No joint or muscle swelling or pain. No neck or back pain. SKIN: No rash NEUROLOGIC: No headache, vertigo, loss of consciousness, or change in strength/ sensation. ENDOCRINE: No increased thirst. No abnormal weight change HEMATOLOGIC/LYMPHATIC: No anemia, easy bleeding, or history of blood clots. ALLERGIC/IMMUNOLOGIC: No hives or skin allergy. *Physical Exam - Vital Signs Last Vital Signs Temp Pulse Resp BP Pulse Ox 98.7 F 95 H 20 162/85 98 04/06/18 18:47 04/06/18 18:47 04/06/18 18:47 04/06/18 18:47 04/06/18 18:47 - Physical Exam Comments: 04/06/18 19:56 GENERAL: Awake, alert, and fully oriented, in no acute distress HEAD: No signs of trauma, normocephalic, atraumatic EYES: PERRLA, EOMI, sclera anicteric, conjunctiva clear ENT: Auricles normal inspection, hearing grossly normal, nares patent, oropharynx clear without exudates. Moist mucosa NECK: Normal ROM, supple, no lymphadenopathy, JVD, or masses LUNGS: No distress, speaks full sentences, clear to auscultation bilaterally HEART: Regular rate and rhythm, normal S1 and S2, no murmurs, rubs or gallops, peripheral pulses normal and equal bilaterally. ABDOMEN: Distended and diffusely tender. No guarding. Well appearing surgical wound with small amount of discharge. No dehiscence. EXTREMITIES: Normal inspection, Normal range of motion, no edema. No clubbing or cyanosis. NEUROLOGICAL: Cranial nerves II through XII grossly intact. Normal speech, no focal sensorimotor deficits SKIN: Warm, Dry, normal turgor, no rashes or lesions noted. ED Treatment Course - LABORATORY CBC & Chemistry Diagram: 04/06/18 20:00 04/06/18 20:00 - RADIOLOGY Radiology Studies Ordered: Category Date Time Status ABDOMEN & PELVIS CT WITH CONTR [CT] Stat CT Scan 04/06/18 19:40 Ordered Medical Decision Making - Medical Decision Making 04/06/18 19:57 Patient is 77F with history of recent ventral hernia repair, asthma, GERD, s/p cholecystectomy. Vital signs normal and stable. DDx includes, but is not limited to: sbo, hernia, abscess, UTI. Will evaluate with abdominal pain labs, CT abd/pelvis with PO contrast. 04/06/18 23:00 EKG shows normal sinus rhythm with rate of 87. No st elevations/depressions. No significant t wave abnormalities. Normal axis. Normal intervals. CBC, CMP reassuring. Pending CT abd/pelvis 04/06/18 23:28 CXR shows no acute cardiopulmonary process. 04/06/18 23:47 CT shows SBO, likely transition point around ventral hernia. Dr Noyola consulted, wants NG tube placed. Will place and admit to med surg. Patient's pain has improved, still no vomiting. 04/07/18 00:[address] Louis, pending confirmation of NG tube placement on CXR. + bowel sounds with aspiration and suctioned gastric contents *DC/Admit/Observation/Transfer Diagnosis at time of Disposition: Ventral hernia with bowel obstruction - Discharge Dispostion Condition at time of disposition: Stable Decision to Admit order: Yes - Referrals - Patient Instructions - Post Discharge Activity
[2018-04-06] MEDS ORDERED: FAMOTIDINE 20 MG/50 ML IVPB 20 MG/50 ML MG IVPB ONE ×2 (20:00→20:08)
[2018-04-06] MEDS ORDERED: morphine SULFATE 4 MG/ML VIAL ONE (20:07)
[2018-04-06] MEDS ORDERED: ONDANSETRON 4 MG/2 ML VIAL ONE (20:07)
[2018-04-06 20:11] LABS: BASO % 0.9 % (0-2.0); EOS % 3.1 % (0-4.5); HEMATOCRIT 37.9 % (32.4-45.2); HEMOGLOBIN 12.5 GM/dL (10.7-15.3); MCH 28.7 pg (25.7-33.7); MCHC 32.8 g/dl (32.0-36.0); MEAN CELL VOLUME 87.5 fl (80-96); MEAN PLT VOLUME 8.4 fl (7.5-11.1); MONO % 7.4 % (3.8-10.2); NEUT % 73.6 % (42.8-82.8); PLATELET COUNT 289 K/MM3 (134-434); RBC 4.33 M/mm3 (3.60-5.2); RDW 15.3 % (11.6-15.6); WHITE BLOOD COUNT 8.4 K/mm3 (4.0-10.0)
[2018-04-06 20:39] LABS: ALBUMIN 3.6 g/dl (3.4-5.0); ANION GAP 8 MMOL/L (8-16); BILIRUBIN,TOTAL 0.6 mg/dL (0.2-1.0); BLOOD UREA NITROGEN 12 mg/dL (7-18); CALCIUM 9.3 mg/dL (8.5-10.1); CHLORIDE 102 mmol/L (98-107); CO2 29 mmol/L (21-32); CREATININE 0.6 mg/dL (0.55-1.02); GLUCOSE,RANDOM 122 mg/dL (74-106); LIPASE 105 U/L (73-393); POTASSIUM 4.8 mmol/L (3.5-5.1); SGOT/AST 32 U/L (15-37); SGPT/ALT 40 U/L (12-78); SODIUM 139 mmol/L (136-145); TOT PROT 8.1 g/dl (6.4-8.2)
[2018-04-06 20:40] LABS: ALK PHOS 69 U/L (45-117)
--- NOTE | 2018-04-06 23:19 | PDOC ---
Attending Attestation - Resident Resident Name: Jason Rodriguez - ED Attending Attestation I have performed the following: I have examined & evaluated the patient, The case was reviewed & discussed with the resident, I agree w/resident's findings & plan, Exceptions are as noted - HPI HPI: 04/06/18 23:14 77 yo F asthma, GERD, h/o cholecystomy here s/p ventral hernia repair 1 week ago ( dr. rojas) with one day of n/v abd pain. several episodes of nonbloody nonbilious emesis. no f/c no urinary complaints. had 2 bm today. no mod factors. does c/o chills. - Physicial Exam PE: 04/06/18 23:16 on exam awake alert lungs clear bilaterally heart rrr no mrg. abd soft distended. appropriately tender. incision cdi. inferior area bruising. no exudate. ext wwp no edema. 2 + dp/ pt pulses bilaterally. - Medical Decision Making 04/06/18 23:17 differential diagnosis sbo, infection such as uti or pneumonia, no signs of wound infection. will d/w dr. rojas, ct a/p labs ivf, ua ekg, labs. ivf, antiemetics, pain control as needed. Heart Score/ECG Review #1 ECG reviewed & interpreted by me at: 22:46 General ECG Interpretation: Sinus Rhythm, Normal Rate (87), Normal Intervals, No acute ischemic changes
[2018-04-06] MEDS ORDERED: SODIUM CHLORIDE 1,000 ML IV SCH (23:45)
--- NOTE | 2018-04-07 00:30 | PN ---
Teaching Attending Note Name of Resident: Niles Isaacs ATTENDING PHYSICIAN STATEMENT I saw and evaluated the patient. I reviewed the resident's note and discussed the case with the resident. I agree with the resident's findings and plan as documented. SUBJECTIVE: Patient is a 77 year old woman with history of asthma, GERD, fatty liver and cholecystectomy here today complaining of abdominal pain and vomiting that started today. Had several episodes of non-billious non-bloody vomiting, chills and dysuria but denies fever. Abdominal pain is diffuse. Last bowel movement was today. Patient had ventral hernia repair by Dr Noyola on Sunday. Denies chest pain, diarrhea or shortness of breath. No vomiting since being in the ER but has been burping. ER staff spoke to Dr. Noyola who requested NGT placement. OBJECTIVE: Alert Vital Signs Period Temp Pulse Resp BP Sys/Piña Pulse Ox Last 24 Hr 98.7 F 95 20 162/85 98 HEENT: No Jaundice, eye redness or discharge, PERRLA, EOMI. Normocephalic, atraumatic. External ears are normal and hearing is grossly intact. No nasal discharge. Neck: Supple, nontender. No palpable adenopathy or thyromegaly. No JVD Chest: Good effort. Clear to auscultation and percussion. Heart: Regular. No S3, rub or murmur Abdomen: Distended and diffusely tender. Soft. No guarding. Surgical wound is intact with minimal drainage; no HSM. No rebound. Normoactive bowel sounds. Ext: Peripheral pulses intact. No leg edema. Skin: Warm and dry. No petechiae, rash or ecchymosis. Neuro: Alert. Oriented x3. CN 2-12 grossly intact. Sensation grossly intact in all four extremities and DTR are symmetric. Current Medications Generic Name Dose Route Start Last Admin Trade Name Freq PRN Reason Stop Dose Admin Sodium Chloride 1,000 mls @ 75 mls/hr 04/06/18 23:45 04/07/18 00:23 Normal Saline - IV 75 mls/hr ASDIR NORM Administration Home Medications Medication Instructions Recorded Unobtainable 04/06/18 Abnormal Lab Results 04/06/18 20:00 Random Glucose 122 H ASSESSMENT AND PLAN: 1. Small bowel obstruction - Manage with NGT, IV NS at 50 ml/hour, IV Zofran and Pepcid and IV morphine for pain control. Await surgical evaluation. 2. DVT prophylaxis - Lovenox 40 mg SQ q 24 hours. 3. Advance directives - Full code
[2018-04-07 01:09] LABS: URINE APPEARANCE CLEAR; URINE BILIRUBIN NEGATIVE (<2.0 mg/dL); URINE COLOR LTYELLOW; URINE GLUCOSE (UA) NEGATIVE (NEGATIVE); URINE KETONE NEGATIVE (NEGATIVE); URINE NITRITE NEGATIVE (NEGATIVE); URINE PROTEIN NEGATIVE (NEGATIVE); URINE UROBILINOGEN 4.0 E.U/dl mg/dL (0.2-1.0)
[2018-04-07 01:11] LABS: URINE LEUK ESTERASE 3+ (NEGATIVE)
[2018-04-07 01:13] LABS: EPI CELLS RARE /HPF (FEW); URINE MUCUS RARE
[2018-04-07] MEDS ORDERED: SODIUM CHLORIDE 1,000 ML IV SCH (01:15)
--- NOTE | 2018-04-07 01:15 | HP ---
CHIEF COMPLAINT: abdominal pain PCP: Dr. Noyola surgeon HISTORY OF PRESENT ILLNESS: Pt is a 77 y/o F with PMH Asthma, GERD, ventral hernia (recently repaired 2017), who presents to the ED with abdominal pain associated with nausea, and vomiting for 1 day. Pt states she ate yesterday morning but vomited all her food contents. She states that she had a BM the day before yesterday and had been passing copious flatus, but yesterday stopped passing gas. ER course was notable for: (1) NGT, zofran, pepcid (2) UA pos (3) Recent Travel: denies PAST MEDICAL HISTORY: as above PAST SURGICAL HISTORY: as above Social History: Smoking: denies Alcohol: denies Drugs: denies Family History: denies Allergies No Known Drug Allergies Allergy (Verified 04/06/18 18:47) HOME MEDICATIONS: Home Medications Medication Instructions Recorded Unobtainable 04/06/18 REVIEW OF SYSTEMS CONSTITUTIONAL: Absent: fever, chills, diaphoresis, generalized weakness, malaise, loss of appetite, weight change HEENT: Absent: rhinorrhea, nasal congestion, throat pain, throat swelling, difficulty swallowing, mouth swelling, ear pain, eye pain, visual changes CARDIOVASCULAR: Absent: chest pain, syncope, palpitations, irregular heart rate, lightheadedness , peripheral edema RESPIRATORY: Absent: cough, shortness of breath, dyspnea with exertion, orthopnea, wheezing, stridor, hemoptysis GASTROINTESTINAL:abdominal distension, nausea, vomiting, constipation Absent: abdominal pain, , diarrhea, melena, hematochezia GENITOURINARY: Absent: dysuria, frequency, urgency, hesitancy, hematuria, flank pain, genital pain MUSCULOSKELETAL: Absent: myalgia, arthralgia, joint swelling, back pain, neck pain SKIN: Absent: rash, itching, pallor HEMATOLOGIC/IMMUNOLOGIC: Absent: easy bleeding, easy bruising, lymphadenopathy, frequent infections ENDOCRINE: Absent: unexplained weight gain, unexplained weight loss, heat intolerance, cold intolerance NEUROLOGIC: Absent: headache, focal weakness or paresthesias, dizziness, unsteady gait, seizure, mental status changes, bladder or bowel incontinence PSYCHIATRIC: Absent: anxiety, depression, suicidal or homicidal ideation, hallucinations. PHYSICAL EXAMINATION Vital Signs - 24 hr 04/06/18 04/07/18 18:47 00:43 Temperature 98.7 F 98.6 F Pulse Rate 95 H Pulse Rate [ 82 Left Radial] Respiratory 20 19 Rate Blood Pressure 162/85 Blood Pressure 142/85 [Left Arm] O2 Sat by Pulse 98 94 L Oximetry (%) Gen: NCAT, lying in bed. Pt upset about her NGT HEENT: NCAT, moist membranes Neck: supple, no jvd Cardio: rrr, normal s1s2, no mrg Pulm: cta b/l Abd: Soft, distended, tender at surgical site, tympanitic Ext: no edema Laboratory Results - last 24 hr 04/06/18 04/06/18 04/06/18 20:00 20:00 20:00 WBC 8.4 RBC 4.33 Hgb 12.5 Hct 37.9 MCV 87.5 MCH 28.7 MCHC 32.8 RDW 15.3 Plt Count 289 D MPV 8.4 Absolute Neuts (auto) 6.2 Neutrophils % 73.6 Lymphocytes % 15.0 Monocytes % 7.4 Eosinophils % 3.1 D Basophils % 0.9 D Nucleated RBC % 0 Sodium 139 Potassium 4.8 Chloride 102 Carbon Dioxide 29 Anion Gap 8 BUN 12 Creatinine 0.6 Creat Clearance w eGFR > 60 Random Glucose 122 H Lactic Acid 1.5 Calcium 9.3 Total Bilirubin 0.6 AST 32 ALT 40 Alkaline Phosphatase 69 Total Protein 8.1 Albumin 3.6 Lipase 105 ASSESSMENT/PLAN: Pt is a 77 y/o F with PMH Asthma, GERD, ventral hernia (recently repaired 2017), who presents to the ED with abdominal pain associated with nausea, and vomiting for 1 day. Pt admitted for SBO. #SBO -NGT -NPO -Protonix -Dr. Noyola consulted -gentle hydration #GERD -protonix #Asthma -stable -Ventolin PRN #FEN -NS -lytes wnl -NPO #PPx -Hep subQ #Dispo -Med/Surg Niles Isaacs MD PGY-2 IM Visit type - Emergency Visit Emergency Visit: Yes Care time: The patient presented to the Emergency Department on the above date and was hospitalized for further evaluation of their emergent condition. - New Patient This patient is new to me today: Yes Date on this admission: 04/07/18 - Critical Care Critical Care patient: No Hospitalist Screening - Colonoscopy Questionnaire Colonoscopy Questionnaire: Colonoscopy Questionnaire - Patient: 50 - 75 years old and never had a screening colonoscopy: Unknown History of colon or rectal polyps, or CA: Unknown History of IBD, Crohn's disease or UC: Unknown History of abdominal radiation therapy as a child: Unknown - Relative: 1 with colon or rectal CA, or polyps at age 60 or younger: Unknown Colon or rectal CA diagnosed at age 45 or younger: Unknown Multiple relatives with colon or rectal CA: Unknown - Outcome: Screening Result: Negative Screen
--- NOTE | 2018-04-07 04:37 | PDOC ---
*Physical Exam - Vital Signs Last Vital Signs Temp Pulse Resp BP Pulse Ox 98.6 F 82 19 142/85 94 L 04/07/18 00:43 04/07/18 00:43 04/07/18 00:43 04/07/18 00:43 04/07/18 00:43 - Physical Exam Comments: 04/07/18 04:36 Received signed out from Dr Rodriguez, NG Tube appears in correct position. X-RAY reviewed. Placement also confirmed by pushing air while auscultating. ED Treatment Course - LABORATORY CBC & Chemistry Diagram: 04/06/18 20:00 04/06/18 20:00 - ADDITIONAL ORDERS Additional order review: Laboratory Results 04/06/18 04/06/18 20:00 20:00 Sodium 139 Potassium 4.8 Chloride 102 Carbon Dioxide 29 Anion Gap 8 BUN 12 Creatinine 0.6 Creat Clearance w eGFR > 60 Random Glucose 122 H Lactic Acid 1.5 Calcium 9.3 Total Bilirubin 0.6 AST 32 ALT 40 Alkaline Phosphatase 69 Total Protein 8.1 Albumin 3.6 Lipase 105 04/06/18 20:00 RBC 4.33 MCV 87.5 MCHC 32.8 RDW 15.3 MPV 8.4 Neutrophils % 73.6 Lymphocytes % 15.0 Monocytes % 7.4 Eosinophils % 3.1 D Basophils % 0.9 D - Medications Given in the ED: ED Medications Discontinued Medications Generic Name Dose Route Start Last Admin Trade Name Freq PRN Reason Stop Dose Admin Famotidine/Sodium Chloride 20 mg in 50 mls @ 100 mls/hr 04/06/18 20:00 20:18 Pepcid 20 Mg Premixed Ivpb - IVPB 04/06/18 20:29 100 mls/hr ONCE ONE Administration Sodium Chloride 1,000 mls @ 1,000 mls/hr 04/06/18 19:39 04/06/18 20:18 Normal Saline - IV 04/06/18 20:38 1,000 mls/hr ASDIR STA Administration Sodium Chloride 1,000 mls @ 75 mls/hr 04/06/18 23:45 04/07/18 00:23 Normal Saline - IV 75 mls/hr ASDIR NORM Administration Morphine Sulfate 2 mg 04/06/18 19:39 04/06/18 20:17 Morphine Injection - IVPUSH 04/06/18 19:40 2 mg ONCE ONE Administration Ondansetron HCl 4 mg 04/06/18 19:39 04/06/18 20:18 Zofran Injection IVPUSH 04/06/18 19:40 4 mg ONCE ONE Administration *DC/Admit/Observation/Transfer Diagnosis at time of Disposition: Ventral hernia with bowel obstruction - Discharge Dispostion Condition at time of disposition: Stable - Referrals - Patient Instructions - Post Discharge Activity
[2018-04-07] MEDS: PANTOPRAZOLE SODIUM 40 MG VIAL IVPUSH SCH (04:53)
[2018-04-07 06:31] VITALS: BMI 28.9
[2018-04-07] MEDS: HEPARIN NA (PORCINE) 5,000 UNITS/ML 1ML VIAL SQ SCH ×3 (07:08→22:19)
[2018-04-07 08:16] LABS: HEMATOCRIT 35.4 % (32.4-45.2); HEMOGLOBIN 11.4 GM/dL (10.7-15.3); MCH 28.3 pg (25.7-33.7); MCHC 32.1 g/dl (32.0-36.0); MEAN CELL VOLUME 88.2 fl (80-96); MEAN PLT VOLUME 8.2 fl (7.5-11.1); PLATELET COUNT 245 K/MM3 (134-434); RBC 4.01 M/mm3 (3.60-5.2); RDW 14.9 % (11.6-15.6); WHITE BLOOD COUNT 6.8 K/mm3 (4.0-10.0)
[2018-04-07 08:24] LABS: INR 1.36 (0.83-1.09); PROTHROMBIN TIME (PATIENT) 15.4 SEC (9.7-13.0)
[2018-04-07 08:58] LABS: CHLORIDE 105 mmol/L (98-107); POTASSIUM 4.1 mmol/L (3.5-5.1); SODIUM 141 mmol/L (136-145)
[2018-04-07 09:08] LABS: ALBUMIN 3.1 g/dl (3.4-5.0); ALK PHOS 60 U/L (45-117); ANION GAP 9 MMOL/L (8-16); BILIRUBIN,TOTAL 0.9 mg/dL (0.2-1.0); BLOOD UREA NITROGEN 9 mg/dL (7-18); CALCIUM 8.3 mg/dL (8.5-10.1); CO2 27 mmol/L (21-32); CREATININE 0.6 mg/dL (0.55-1.02); GLUCOSE,RANDOM 93 mg/dL (74-106); MAGNESIUM 2.2 mg/dL (1.8-2.4); PHOSPHOROUS 3.4 mg/dL (2.5-4.9); SGOT/AST 28 U/L (15-37); SGPT/ALT 36 U/L (12-78); TOT PROT 7.1 g/dl (6.4-8.2)
--- NOTE | 2018-04-07 11:20 | PN ---
Physical Exam: SUBJECTIVE: Patient seen and examined, denies any nausea, vomiting, abdominal pain, had 2 large loose BM this morning. OBJECTIVE: Vital Signs Period Temp Pulse Resp BP Sys/Piña Pulse Ox Last 24 Hr 98.5 F-98.7 F 80-95 18-20 142-162/85-85 94-98 GENERAL: lying in bed in no acute distress, HEENT: NG tube in place Chest: CTAB, no rales or wheezing Abdomen:soft, distended, positive bowel sounds, well healing incision with no tenderness/voluntary or involuntary guarding or rigidity Extremities: no edema Laboratory Results - last 24 hr 04/06/18 04/06/18 04/06/18 20:00 20:00 20:00 WBC 8.4 RBC 4.33 Hgb 12.5 Hct 37.9 MCV 87.5 MCH 28.7 MCHC 32.8 RDW 15.3 Plt Count 289 D MPV 8.4 Absolute Neuts (auto) 6.2 Neutrophils % 73.6 Lymphocytes % 15.0 Monocytes % 7.4 Eosinophils % 3.1 D Basophils % 0.9 D Nucleated RBC % 0 PT with INR INR Sodium 139 Potassium 4.8 Chloride 102 Carbon Dioxide 29 Anion Gap 8 BUN 12 Creatinine 0.6 Creat Clearance w eGFR > 60 Random Glucose 122 H Lactic Acid 1.5 Calcium 9.3 Phosphorus Magnesium Total Bilirubin 0.6 AST 32 ALT 40 Alkaline Phosphatase 69 Total Protein 8.1 Albumin 3.6 Lipase 105 Urine Color Urine Appearance Urine pH Ur Specific [place] Urine Protein Urine Glucose (UA) Urine Ketones Urine Blood Urine Nitrite Urine Bilirubin Urine Urobilinogen Ur Leukocyte Esterase Urine WBC (Auto) Urine RBC (Auto) Ur Epithelial Cells Urine Mucus 04/07/18 04/07/18 04/07/18 00:55 07:42 07:42 WBC 6.8 RBC 4.01 Hgb 11.4 Hct 35.4 MCV 88.2 MCH 28.3 MCHC 32.1 RDW 14.9 Plt Count 245 MPV 8.2 Absolute Neuts (auto) Neutrophils % Lymphocytes % Monocytes % Eosinophils % Basophils % Nucleated RBC % PT with INR 15.40 H INR 1.36 H Sodium Potassium Chloride Carbon Dioxide Anion Gap BUN Creatinine Creat Clearance w eGFR Random Glucose Lactic Acid Calcium Phosphorus Magnesium Total Bilirubin AST ALT Alkaline Phosphatase Total Protein Albumin Lipase Urine Color Ltyellow Urine Appearance Clear Urine pH 6.0 D Ur Specific [place] > 1.060 H Urine Protein Negative Urine Glucose (UA) Negative Urine Ketones Negative Urine Blood 1+ H Urine Nitrite Negative Urine Bilirubin Negative Urine Urobilinogen 4.0 e.u/dl H Ur Leukocyte Esterase 3+ H Urine WBC (Auto) 60 Urine RBC (Auto) 9 Ur Epithelial Cells Rare Urine Mucus Rare 04/07/18 07:42 WBC RBC Hgb Hct MCV MCH MCHC RDW Plt Count MPV Absolute Neuts (auto) Neutrophils % Lymphocytes % Monocytes % Eosinophils % Basophils % Nucleated RBC % PT with INR INR Sodium 141 Potassium 4.1 Chloride 105 Carbon Dioxide 27 Anion Gap 9 BUN 9 Creatinine 0.6 Creat Clearance w eGFR > 60 Random Glucose 93 Lactic Acid Calcium 8.3 L Phosphorus 3.4 Magnesium 2.2 Total Bilirubin 0.9 AST 28 ALT 36 Alkaline Phosphatase 60 Total Protein 7.1 Albumin 3.1 L Lipase Urine Color Urine Appearance Urine pH Ur Specific [place] Urine Protein Urine Glucose (UA) Urine Ketones Urine Blood Urine Nitrite Urine Bilirubin Urine Urobilinogen Ur Leukocyte Esterase Urine WBC (Auto) Urine RBC (Auto) Ur Epithelial Cells Urine Mucus Active Medications Generic Name Dose Route Start Last Admin Trade Name Freq PRN Reason Stop Dose Admin Heparin Sodium (Porcine) 5,000 unit 04/07/18 06:00 04/07/18 07:08 Heparin - SQ Not Given TID NORM Sodium Chloride 1,000 mls @ 50 mls/hr 04/07/18 01:15 04/07/18 01:35 Normal Saline - IV 04/08/18 01:09 50 mls/hr ASDIR NORM Administration Pantoprazole Sodium 40 mg 04/07/18 02:15 04/07/18 04:53 Protonix Iv IVPUSH 40 mg DAILY NORM Administration CT A/P oral contrast results reviewed ASSESSMENT/PLAN: 77 yof with PMHx of Asthma, GERD, recent ventral hernia repair 04/01, admitted with nausea, vomiting, inability to pass ulises x 1 days found with SBO. -Small bowel obstruction -Recent incarcerated ventral hernia repair 04/01 -Asthma -GERD Plan: NG in place, minimal drainage. CT with oral contrast this AM noted. As discussed, patient with 2 large BM post the study. Serial abdominal exams. Follow up further recs Dr. Noyola ABdominal xray in AM PPI DVTPPX heparin Dispo pending clinical improvement. Plan discussed with patient and nursing in detail, all questions answered. Visit type - Emergency Visit Emergency Visit: Yes ED Registration Date: 04/06/18 Care time: The patient presented to the Emergency Department on the above date and was hospitalized for further evaluation of their emergent condition. - New Patient This patient is new to me today: Yes Date on this admission: 04/07/18 - Critical Care Critical Care patient: No - Discharge Referral Referred to [facility] Med P.C.: No
[2018-04-07] MEDS ORDERED: DEXTROSE 5%-NORMAL SALINE 1,000 ML IV SCH (11:30)
--- NOTE | 2018-04-07 14:02 | CONSULT ---
Consult Consult Specialty:: Surgery Reason for Consultation:: Intestinal obstruction , s/p repair of ventral hernia with mesh on 04/01/2018. - History of Present Illness Chief Complaint: Abdominal pain and vomiting last night. She feels better this morning, and denies abdominal pain today. She has had 2 bowel movements this morning. Ng tube has been placed and has drained very minimal amount of clear bilious material. - History Source History Provided By: Patient, Family Member Limitations to Obtaining History: Other (History and explanation was done through a police academy instructor , [place] [id number].) - Past Medical History ...: No - Past Surgical History Past Surgical History: Yes: Cholecystectomy, Hernia Repair ( C) - Alcohol/Substance Use Hx Alcohol Use: No - Smoking History Smoking history: Never smoked Have you smoked in the past 12 months: No Home Medications - Allergies Allergies/Adverse Reactions: Allergies Allergy/AdvReac Type Severity Reaction Status Date / Time No Known Drug Allergies Allergy Verified 04/06/18 18:47 - Home Medications Home Medications: Ambulatory Orders Unobtainable 04/06/18 Physical Exam Vital Signs: Vital Signs Temperature 98.5 F 04/07/18 10:00 Pulse Rate 80 04/07/18 10:00 Respiratory Rate 18 04/07/18 10:00 Blood Pressure 155/85 04/07/18 10:00 O2 Sat by Pulse Oximetry (%) 94 L 04/07/18 00:43 Gastrointestinal: Yes: Other (Abdomen is oft , not distended. Surgical site is normal, no induration , no pain or tenderness at the operative site. No swelling at the niciison site. No sign of recurrent hernia.) Labs: CBC, BMP 04/07/18 07:42 04/07/18 07:42 Imaging - Results X-ray: Pending Cat Scan: Report Reviewed, Image Reviewed (CT scan discussed with radiologist, the repeat abdominal CT scan appears to be better , in terms of small bowel dilatation than the first noncontrast CT, Suggested repeat abdominal Ct scan later to follow the passage of contrast. Patient has two bowel movemnts this morning.) Problem List - Problems (1) Abdominal pain with vomiting Code(s): R10.9 - UNSPECIFIED ABDOMINAL PAIN; R11.10 - VOMITING, UNSPECIFIED (2) Intestinal obstruction Code(s): K56.609 - UNSP INTESTNL OBST, UNSP TO PARTIAL VERSUS COMPLETE OBST Qualifiers: Intestinal obstruction type: other intestinal obstruction
[2018-04-07] MEDS ORDERED: MORPHINE SULFATE 2 MG/ML VIAL IVPUSH ONE (23:15)
[2018-04-08] MEDS: HEPARIN NA (PORCINE) 5,000 UNITS/ML 1ML VIAL SQ SCH ×3 (05:35→21:16)
[2018-04-08 07:31] LABS: BASO % 0.6 % (0-2.0); EOS % 4.5 % (0-4.5); HEMATOCRIT 33.7 % (32.4-45.2); HEMOGLOBIN 10.9 GM/dL (10.7-15.3); LYMPH % 16.6 % (8-40); MCH 28.6 pg (25.7-33.7); MCHC 32.4 g/dl (32.0-36.0); MEAN CELL VOLUME 88.2 fl (80-96); MEAN PLT VOLUME 8.6 fl (7.5-11.1); MONO % 9.6 % (3.8-10.2); NEUT % 68.7 % (42.8-82.8); PLATELET COUNT 242 K/MM3 (134-434); RBC 3.83 M/mm3 (3.60-5.2); RDW 14.7 % (11.6-15.6); WHITE BLOOD COUNT 6.7 K/mm3 (4.0-10.0)
[2018-04-08 08:20] LABS: CHLORIDE 103 mmol/L (98-107); POTASSIUM 3.5 mmol/L (3.5-5.1); SODIUM 140 mmol/L (136-145)
[2018-04-08 08:34] LABS: ANION GAP 11 MMOL/L (8-16); BLOOD UREA NITROGEN 6 mg/dL (7-18); CALCIUM 7.9 mg/dL (8.5-10.1); CO2 26 mmol/L (21-32); CREATININE 0.5 mg/dL (0.55-1.02); GLUCOSE,RANDOM 111 mg/dL (74-106); MAGNESIUM 2.1 mg/dL (1.8-2.4); PHOSPHOROUS 2.9 mg/dL (2.5-4.9)
[2018-04-08] MEDS: PANTOPRAZOLE SODIUM 40 MG VIAL IVPUSH SCH (10:00)
--- NOTE | 2018-04-08 10:30 | PN ---
Teaching Attending Note Name of Resident: Martina Chahal ATTENDING PHYSICIAN STATEMENT I saw and evaluated the patient. I reviewed the resident's note and discussed the case with the resident. I agree with the resident's findings and plan as documented with exceptions below. SUBJECTIVE: Patient seen and examined. no nausea, vomiting, abdominal pain. Had another BM since yesterday morning. No other complaints. OBJECTIVE: Vital Signs Period Temp Pulse Resp BP Sys/Piña Pulse Ox Last 24 Hr 98.3 F-98.5 F 82-90 - 122-156/70-88 Intake & Output 04/05/18 04/06/18 04/07/18 04/08/18 23:59 23:59 23:59 23:59 Intake Total 400 1200 Output Total 360 50 Balance 40 1150 Weight 158 lb 1.6 oz General: sitting at edge of bed, in no acute distress Chest: CTAB, no rales or wheezing Abdomen:soft, NT throughout, positive bowel sounds, improved distension, no voluntary or involuntary guarding or rigidity Extremities: no edema Home Medications Medication Instructions Recorded Unobtainable 04/06/18 Active Medications Heparin Sodium (Porcine) (Heparin -) 5,000 unit SQ TID [facility] Last Admin: 04/08/18 05:35 Dose: 5,000 unit Dextrose/Sodium Chloride (D5-Ns -) 1,000 mls @ 75 mls/hr IV ASDIR [facility] Pantoprazole Sodium (Protonix Iv) 40 mg IVPUSH DAILY [facility] Last Admin: 04/07/18 04:53 Dose: 40 mg Laboratory Results - last 24 hr 04/08/18 04/08/18 06:00 06:00 WBC 6.7 RBC 3.83 Hgb 10.9 Hct 33.7 MCV 88.2 MCH 28.6 MCHC 32.4 RDW 14.7 Plt Count 242 MPV 8.6 Absolute Neuts (auto) 4.6 Neutrophils % 68.7 Lymphocytes % 16.6 Monocytes % 9.6 Eosinophils % 4.5 Basophils % 0.6 Nucleated RBC % 0 Sodium 140 Potassium 3.5 Chloride 103 Carbon Dioxide 26 Anion Gap 11 BUN 6 L Creatinine 0.5 L Creat Clearance w eGFR > 60 Random Glucose 111 H Calcium 7.9 L Phosphorus 2.[address] A/P results reviewed. Abdomen xray this AM, images and results reviewed ASSESSMENT AND PLAN: 77 yof with PMHx of Asthma, GERD, recent ventral hernia repair 04/01, admitted with nausea, vomiting, inability to pass ulises x 1 days found with SBO. -Small bowel obstruction -Recent incarcerated ventral hernia repair 04/01 -Asthma -GERD Plan: repeat CT A/P and abdominal xray non concerning. Abdominal exam benign. NG tube removed this AM. Discussed with Dr. Noyola, place on full liquid diet. Serial abdominal exams. PPI DVTPPX heparin Dispo d/c home in 24 hours if tolerating diet well and no new concerns. Plan discussed with patient and nursing in detail, all questions answered.
[2018-04-08] MEDS: DEXTROSE 5%-NORMAL SALINE 1,000 ML IV SCH ×2 (10:50→21:17)
--- NOTE | 2018-04-08 11:35 | PN ---
Progress Note, Physician Chief Complaint: Patient has no abdominal pain. Not nauserous. Abdominal Ct : shows no obstruction. Contrast passed through the colon, and she has had a bowel movement. Will resume oral feeding. Out of bed. - Current Medication List Current Medications: Active Medications Heparin Sodium (Porcine) (Heparin -) 5,000 unit SQ TID [facility] Last Admin: 04/08/18 05:35 Dose: 5,000 unit Dextrose/Sodium Chloride (D5-Ns -) 1,000 mls @ 75 mls/hr IV ASDIR [facility] Pantoprazole Sodium (Protonix Iv) 40 mg IVPUSH DAILY [facility] Last Admin: 04/07/18 04:53 Dose: 40 mg - Objective Vital Signs: Vital Signs Temperature 97.8 F 04/08/18 10:00 Pulse Rate 88 04/08/18 10:00 Respiratory Rate 20 04/08/18 10:00 Blood Pressure 149/89 04/08/18 10:00 O2 Sat by Pulse Oximetry (%) 94 L 04/07/18 00:43 Labs: CBC, BMP 04/08/18 06:00 04/08/18 06:00 INR, PTT INR 1.36 (0.83-1.09) H 04/07/18 07:42 Problem List - Problems (1) Abdominal pain with vomiting Code(s): R10.9 - UNSPECIFIED ABDOMINAL PAIN; R11.10 - VOMITING, UNSPECIFIED (2) Intestinal obstruction Code(s): K56.609 - UNSP INTESTNL OBST, UNSP TO PARTIAL VERSUS COMPLETE OBST Qualifiers: Intestinal obstruction type: other intestinal obstruction Assessment/Plan Improved, Intestinal obstruction improved. Resume feeding. \
--- NOTE | 2018-04-08 13:39 | EKG ---
Test Reason : Blood Pressure : / mmHG Vent. Rate : 087 BPM Atrial Rate : 087 BPM P-R Int : 174 ms QRS Dur : 076 ms QT Int : 386 ms P-R-T Axes : 046 010 038 degrees QTc Int : 464 ms NORMAL SINUS RHYTHM POSSIBLE INFERIOR INFARCT (CITED ON OR BEFORE 30-MAR-2018) ABNORMAL ECG WHEN COMPARED WITH ECG OF 30-MAR-2018 09:55, NO SIGNIFICANT CHANGE WAS FOUND Confirmed by CRISTINA ROSA MD ([id number]) on 04/08/2018 1:39:15 PM Referred By: Confirmed By:CRISTINA ROSA MD
--- NOTE | 2018-04-08 16:08 | PN ---
Physical Exam: SUBJECTIVE: Patient seen and examined this morning at bedside. Patient has no active complaints. No episodes of nausea, vomiting, no abdominal pain, had bowel movement today. OBJECTIVE: Vital Signs Period Temp Pulse Resp BP Sys/Piña Pulse Ox Last 24 Hr 97.8 F-98.6 F 80-90 18-20 134-156/70-89 GENERAL: The patient is awake, alert, and fully oriented, in no acute distress. HEAD: Normal with no signs of trauma. EYES: PERRLA, extraocular movements intact, sclera anicteric, conjunctiva clear. NECK: Trachea midline, full range of motion, supple. LUNGS: Breath sounds equal, clear to auscultation bilaterally. HEART: Regular rate and rhythm, S1, S2 without murmur, rub or gallop. ABDOMEN: Soft, +tenderness on deep palpation on surgical site, nondistended, normoactive bowel sounds, no guarding or rigidity. EXTREMITIES: 2+ pulses, warm, well-perfused, no edema. NEUROLOGICAL: Cranial nerves II through XII grossly intact. Normal speech, normal gait. PSYCH: Normal mood, normal affect. SKIN: Warm, dry, normal turgor, no rashes or lesions noted Laboratory Results - last 24 hr 04/08/18 04/08/18 06:00 06:00 WBC 6.7 RBC 3.83 Hgb 10.9 Hct 33.7 MCV 88.2 MCH 28.6 MCHC 32.4 RDW 14.7 Plt Count 242 MPV 8.6 Absolute Neuts (auto) 4.6 Neutrophils % 68.7 Lymphocytes % 16.6 Monocytes % 9.6 Eosinophils % 4.5 Basophils % 0.6 Nucleated RBC % 0 Sodium 140 Potassium 3.5 Chloride 103 Carbon Dioxide 26 Anion Gap 11 BUN 6 L Creatinine 0.5 L Creat Clearance w eGFR > 60 Random Glucose 111 H Calcium 7.9 L Phosphorus 2.9 Magnesium 2.1 Active Medications Generic Name Dose Route Start Last Admin Trade Name Freq PRN Reason Stop Dose Admin Heparin Sodium (Porcine) 5,000 unit 04/07/18 06:00 04/08/18 13:45 Heparin - SQ 5,000 unit TID NORM Administration Dextrose/Sodium Chloride 1,000 mls @ 75 mls/hr 04/08/18 10:28 04/08/18 10:50 D5-Ns - IV 75 mls/hr ASDIR NORM Administration Pantoprazole Sodium 40 mg 04/07/18 02:15 04/07/18 04:53 Protonix Iv IVPUSH 40 mg DAILY NORM Administration Imaging: CT Abd/Pelvis (04/06/18)- In comparison to prior exam in 03/29/2018, interval mesh repair of a midline ventral hernia is noted. Development of a 12.3x0.9x3.7 cm subcutaneous fluid collection is seen overlying the hernia repair site consistent with a seroma/hematoma. Increased versus recurrent small bowel obstruction is noted which appears to involve essentially the length of the small bowel. The exact site of obstruction is uncertain on the basis of this exam. The maximum luminal small bowel diameter is approximately 3.3 cm. CXR - no acute pathology. Clear lungs. Very prominent aortic knob is previously noted. CT Abd/Pelvis (04/07/18) - In comparison to a previous exam 04/06/18, there has been interval insertion of a nasogastric tube with diminished small bowel dilatation secondary to obstruction. Status post umbilical region hernia mesh repair as on the previous exam. Administered oral contrast is seen within the proximal and middle thirds of the small bowel and has not yet entered the distal small bowel or colon. Note is again maide of a 12.3x0.9x3.7 cm subcutaneous fluid collection is seen overlying the hernia repair site. CT Abd/Pelvis (04/08/18)- Abdominal xray (04/07/18)- Contrast migration into colon still contrast in the small bowel. This may represent a partial small bowel obstruction. Abdominal xray (04/08/18)- Imaging reveals contrast in the colon with some air distended loops of small bowel similar to that seen in 04/07/18. There is no sign of free air, organomegaly, or calcifications of significance. There are right upper quadrant clips, pessary, scoliosis with degenerative changes, large heart and clear lung bases. ASSESSMENT/PLAN: Patient is a 77 y/o F with past medical history Asthma, GERD, ventral hernia ( recently repaired 04/01/2018), who presents to the ED with abdominal pain associated with nausea, and vomiting for 1 day. Pt admitted for SBO. #SBO: s/p repair of ventral hernia with with mesh (04/01/18) -intestinal obstruction improved. -Repeat CT showed diminished small bowel dilatation -Feeding resumed - full liquid diet. -NGT removed. -Protonix 40 mg IV -Dr. Noyola consulted. Recommendations appreciated. -gentle hydration #GERD -protonix #Asthma -stable -Ventolin PRN #FEN -D5-NS @ 75ml/hr -lytes wnl, routine bmp monitoring -Full liquid diet #PPx -Heparin 5000 units sq tid #Dispo -Med/Surg -D/c home if tolerating diet well and no new concerns. Visit type - Emergency Visit Emergency Visit: Yes ED Registration Date: 04/06/18 Care time: The patient presented to the Emergency Department on the above date and was hospitalized for further evaluation of their emergent condition. - New Patient This patient is new to me today: Yes Date on this admission: 04/08/18 - Critical Care Critical Care patient: No
[2018-04-09] MEDS: HEPARIN NA (PORCINE) 5,000 UNITS/ML 1ML VIAL SQ SCH ×2 (06:08→14:52)
[2018-04-09 07:29] LABS: BASO % 0.7 % (0-2.0); EOS % 4.5 % (0-4.5); HEMATOCRIT 36.9 % (32.4-45.2); HEMOGLOBIN 11.8 GM/dL (10.7-15.3); LYMPH % 31.1 % (8-40); MCH 28.2 pg (25.7-33.7); MEAN CELL VOLUME 88.2 fl (80-96); MEAN PLT VOLUME 8.3 fl (7.5-11.1); MONO % 9.5 % (3.8-10.2); NEUT % 54.2 % (42.8-82.8); PLATELET COUNT 266 K/MM3 (134-434); RBC 4.19 M/mm3 (3.60-5.2); RDW 14.9 % (11.6-15.6); WHITE BLOOD COUNT 5.4 K/mm3 (4.0-10.0)
[2018-04-09 07:49] LABS: ANION GAP 7 MMOL/L (8-16); BLOOD UREA NITROGEN 5 mg/dL (7-18); CALCIUM 8.1 mg/dL (8.5-10.1); CHLORIDE 105 mmol/L (98-107); CO2 28 mmol/L (21-32); GLUCOSE,RANDOM 97 mg/dL (74-106); POTASSIUM 3.6 mmol/L (3.5-5.1); SODIUM 140 mmol/L (136-145)
[2018-04-09 07:50] LABS: CREATININE 0.6 mg/dL (0.55-1.02)
[2018-04-09] MEDS: PANTOPRAZOLE SODIUM 40 MG VIAL IVPUSH SCH (09:31)
--- NOTE | 2018-04-09 12:36 | PN ---
Progress Note, Physician - Current Medication List Current Medications: Active Medications Heparin Sodium (Porcine) (Heparin -) 5,000 unit SQ TID [facility] Last Admin: 04/09/18 06:08 Dose: 5,000 unit Dextrose/Sodium Chloride (D5-Ns -) 1,000 mls @ 75 mls/hr IV ASDIR [facility] Last Admin: 04/08/18 21:17 Dose: 75 mls/hr Pantoprazole Sodium (Protonix Iv) 40 mg IVPUSH DAILY [facility] Last Admin: 04/09/18 09:31 Dose: 40 mg - Objective Vital Signs: Vital Signs Temperature 98.3 F 04/09/18 09:25 Pulse Rate 89 04/09/18 09:25 Respiratory Rate 18 04/09/18 09:25 Blood Pressure 132/89 04/09/18 09:25 O2 Sat by Pulse Oximetry (%) 94 L 04/07/18 00:43 Labs: CBC, BMP 04/09/18 06:00 04/09/18 06:00 INR, PTT INR 1.36 (0.83-1.09) H 04/07/18 07:42 Problem List - Problems (1) Abdominal pain with vomiting Code(s): R10.9 - UNSPECIFIED ABDOMINAL PAIN; R11.10 - VOMITING, UNSPECIFIED (2) Intestinal obstruction Code(s): K56.609 - UNSP INTESTNL OBST, UNSP TO PARTIAL VERSUS COMPLETE OBST Qualifiers: Intestinal obstruction type: other intestinal obstruction Assessment/Plan Tolerating oral feeding. Has had bowel movement, Denies any abdomianal pain. Wound is clean. can be discharged.
--- NOTE | 2018-04-09 13:53 | PN ---
Teaching Attending Note Name of Resident: Martina Chahal ATTENDING PHYSICIAN STATEMENT I saw and evaluated the patient. I reviewed the resident's note and discussed the case with the resident. I agree with the resident's findings and plan as documented. SUBJECTIVE:asymptomatic. states she is starving and wants more food to eat. tolerated liquid diet this AM. had small BM this AM. denies Cp, SOB, fever, chills, N/V/C/D OBJECTIVE: Last Vital Signs Temp Pulse Resp BP Pulse Ox 98.3 F 89 18 132/89 94 L 04/09/18 09:25 04/09/18 09:25 04/09/18 09:25 04/09/18 09:25 04/07/18 00:43 general NAD Abdomen soft NT/ND ASSESSMENT AND PLAN: 77yo F wtih recent incarcerated hernia repair s/p repair on 04/01 presented with nausea and vomiting and found to have SBO 1. SBO- managed conservatively. tolerating liquid diet. will advance to regular diet if tolerated can go home. surgery on board. will need to f/u with surgery in 2 weeks.
[2018-04-09 14:37] VITALS: BP 141/81; PULSE 85; TEMP 98.4
--- NOTE | 2018-04-09 17:37 | DS ---
Physical Exam: SUBJECTIVE: Patient seen and examined OBJECTIVE: Vital Signs Period Temp Pulse Resp BP Sys/Piña Pulse Ox Last 24 Hr 98 F-98.7 F 72-89 18-20 115-141/72-89 PHYSICAL EXAM GENERAL: The patient is awake, alert, and fully oriented, in no acute distress. HEAD: Normal with no signs of trauma. EYES: PERRL, extraocular movements intact, sclera anicteric, conjunctiva clear. ENT: Ears normal, nares patent, oropharynx clear without exudates, moist mucous membranes. NECK: Trachea midline, full range of motion, supple. LUNGS: Breath sounds equal, clear to auscultation bilaterally, no wheezes, no crackles, no accessory muscle use. HEART: Regular rate and rhythm, S1, S2 without murmur, rub or gallop. ABDOMEN: Soft, nontender, nondistended, normoactive bowel sounds, no guarding, no rebound, no hepatosplenomegaly, no masses. EXTREMITIES: 2+ pulses, warm, well-perfused, no edema. NEUROLOGICAL: Cranial nerves II through XII grossly intact. Normal speech, gait not observed. PSYCH: Normal mood, normal affect. SKIN: Warm, dry, normal turgor, no rashes or lesions noted. LABS Laboratory Results - last 24 hr 04/09/18 04/09/18 06:00 06:00 WBC 5.4 RBC 4.19 Hgb 11.8 Hct 36.9 MCV 88.2 MCH 28.2 MCHC 32.0 RDW 14.9 Plt Count 266 MPV 8.3 Absolute Neuts (auto) 2.9 Neutrophils % 54.2 D Lymphocytes % 31.1 D Monocytes % 9.5 Eosinophils % 4.5 Basophils % 0.7 Nucleated RBC % 0 Sodium 140 Potassium 3.6 Chloride 105 Carbon Dioxide 28 Anion Gap 7 L BUN 5 L Creatinine 0.6 Creat Clearance w eGFR > 60 Random Glucose 97 Calcium 8.1 L Imaging: CT Abd/Pelvis (04/06/18)- In comparison to prior exam in 03/29/2018, interval mesh repair of a midline ventral hernia is noted. Development of a 12.3x0.9x3.7 cm subcutaneous fluid collection is seen overlying the hernia repair site consistent with a seroma/hematoma. Increased versus recurrent small bowel obstruction is noted which appears to involve essentially the length of the small bowel. The exact site of obstruction is uncertain on the basis of this exam. The maximum luminal small bowel diameter is approximately 3.3 cm. CXR - no acute pathology. Clear lungs. Very prominent aortic knob is previously noted. CT Abd/Pelvis (04/07/18) - In comparison to a previous exam 04/06/18, there has been interval insertion of a nasogastric tube with diminished small bowel dilatation secondary to obstruction. Status post umbilical region hernia mesh repair as on the previous exam. Administered oral contrast is seen within the proximal and middle thirds of the small bowel and has not yet entered the distal small bowel or colon. Note is again maide of a 12.3x0.9x3.7 cm subcutaneous fluid collection is seen overlying the hernia repair site. CT Abd/Pelvis (04/08/18)- CT imaging completed demonstrating normal passage of oral contrast to the rectum. No evidence of bowel obstruction. Lower anterior abdominal wall subcutaneous fat collection consistent with a postoperative seroma. Abdominal xray (04/07/18)- Contrast migration into colon still contrast in the small bowel. This may represent a partial small bowel obstruction. Abdominal xray (04/08/18)- Imaging reveals contrast in the colon with some air distended loops of small bowel similar to that seen in 04/07/18. There is no sign of free air, organomegaly, or calcifications of significance. There are right upper quadrant clips, pessary, scoliosis with degenerative changes, large heart and clear lung bases. HOSPITAL COURSE: Date of Admission:04/06/18 Date of Discharge: 04/09/18 Pt is a 77 y/o F with PMH Asthma, GERD, ventral hernia (recently repaired 2017), who presents to the ED with abdominal pain associated with nausea, and vomiting for 1 day. Pt states she ate the day before but vomited all her food contents. She states that she had a BM the day before and had been passing copious flatus, but later on stopped passing gas. Patient was admitted for a small bowel obstruction. Surgery consulted. Initial CT scan of abdomen and pelvis showed an obstruction with small bowel dilatation. NGT was inserted and patient was placed on NPO. The next day, repeat CT scan showed improvement in the dilatation. Patient reported she had bowel movement. NGT removed and patient was advanced to full liquid diet. A third CT scan done and revealed normal passage of the oral contrast to the rectum. Patient was advanced to regular diet and was able to tolerate the food. She was discharged with instructions to follow up with Dr. Noyola in 2 weeks. Minutes to complete discharge: 45 Discharge Summary Reason For Visit: OBSTRUCTED VENTRAL HERNIA Condition: Stable - Instructions Diet, Activity, Other Instructions: You were in the hospital because you had belly pain and vomiting.You were found to have an obstruction on your bowels. You were managed with conservative management and has resolved on its own. You recently had a surgery for your hernia. You are able to tolerate food now without feeling nauseous or vomiting and so you were cleared to go home. If you have any symptoms like fever, chills, pain, nausea, vomiting, inability to eat, please call your doctor or return to the emergency department. Follow up with Dr. Noyola. Call [phone] to make an appointment in 2 weeks. Referrals: Chema Lloyd MD [Staff Physician] - Janes Noyola MD [Staff Physician] - Disposition: HOME - Home Medications Comprehensive Discharge Medication List: Ambulatory Orders Linaclotide [Linzess] 72 mcg PO 04/09/18 Omeprazole 04/09/18 This patient is new to me today: Yes Date on this admission: 04/09/18 Emergency Visit: Yes ED Registration Date: 04/06/18 Care time: The patient presented to the Emergency Department on the above date and was hospitalized for further evaluation of their emergent condition. Critical Care patient: No - Discharge Referral Referred to [facility] No
== END 2018-04-09 15:26 | disposition home or self-care (01) | DRG 390 ==
LOC: JER 18:25 → JERBED 23:48 → J7W 04-07 05:51
PROVIDERS: ADMIT Internal Medicine; ATTEND Internal Medicine
PROC: 0D9670Z Drainage of Stomach with Drainage Device, Via Natural or Artificial Opening (ICD-10-PCS; principal; 2018-04-07)
DX: K91.30 Postprocedural intestinal obstruction, unspecified as to partial versus complete (principal); Y83.9 Surgical procedure, unspecified as the cause of abnormal reaction of the patient, or of later complication, without mention of misadventure at the time of the procedure; K21.9 Gastro-esophageal reflux disease without esophagitis; J45.909 Unspecified asthma, uncomplicated; K76.0 Fatty (change of) liver, not elsewhere classified; R11.10 Vomiting, unspecified
CPT/HCPCS: 36415; 71045-TC-FY; 74019-TC-FY; 74176-TC; 74177-TC; 74190-TC-FY; 80048; 80053; 81003; 81015; 83605; 83690; 83735; 84100; 85025; 85027; 85610; 93005; 93010; 99284-25; J1644; J7030

== ENCOUNTER 2020-04-24 22:15 | Emergency (ER) | payer OTHER ==
[2020-04-24 22:26] VITALS: BMI 19.8
--- OUTSIDE RECORDS SUMMARY | 2020-04-24 22:53 | XMS ---
:1940 Demographics Address [address] [place] [address] Mobile Phone Preferred Language spa Marital Status Not or Methodist Affiliation [facility] Race [facility] [employer] Not or Author Organization [facility] Care Team Providers Name Role Phone Chumaceiro, Chema Unavailable Unavailable Chumaceiro, Chema Unavailable Unavailable Chumaceiro, Chema Unavailable Unavailable Chumaceiro, Chema Unavailable Unavailable Chumaceiro, Chema Unavailable Unavailable Chumaceiro, Chema Unavailable Unavailable Chumaceiro, Chema Unavailable Unavailable Chumaceiro, Chema Unavailable Unavailable [facility], [id number] Unavailable Unavailable Re-disclosure Warning The records that you are about to access may contain information from federally- assisted alcohol or drug abuse programs. If such information is present, then the following federally mandated warning applies: This information has been disclosed to you from records protected by federal confidentiality rules (42 CFR part 2). The federal rules prohibit you from making any further disclosure of this information unless further disclosure is expressly permitted by the written consent of the person to whom it pertains or as otherwise permitted by 42 CFR part 2. A general authorization for the release of medical or other information is NOT sufficient for this purpose. The Federal rules restrict any use of the information to criminally investigate or prosecute any alcohol or drug abuse patient.The records that you are about to access may contain highly sensitive health information, the redisclosure of which is protected by Article 27-F of the [facility] Public Health law. If you continue you may haveaccess to information: Regarding HIV / AIDS; Provided by facilities licensed or operated by the [facility] Office of Mental Health; or Provided by the [facility] Office for People With Developmental Disabilities. If such information is present, then the following [facility] mandated warning applies: This information has been disclosed to you from confidential records which are protected by state law. State law prohibits you from making any further disclosure of this information without the specific written consent of the person to whom it pertains, or as otherwise permitted by law. Any unauthorized further disclosure in violation of state law may result in a fine or usp sentence or both. A general authorization for the release of medical or other information is NOT sufficient authorization for further disclosure. Encounters Encounter Providers Location Date Indications Data Source(s ) Attender: Chema 03/11/2020 [facility] 12:[facility]:00 AM Medical, ) EDT Office Attender: Chema 03/11/2020 12:00:00 AM EDT [facility] ([place] [facility], ) Office Attender: Chema 03/11/2020 12:00:00 AM EDT [facility] [facility] Office Outpatient Attender: [id number] [facility] 09/23/2019 01:13:12 PM [facility] ([facility]) Patient admitted. Immunizations Vaccine Date Status Description Data Source(s) New in 2011. IIV4 05/21/2018 12:00:00 completed ME [facility] ([facility] EDT Medical, ) Medications Medication Brand Start Product Dose Route Administrative Pharmacy [facility] Indications Reaction Description Data Name Date Form Instructions Instructions Source(s) Omeprazole OMEPRA OMEPRAZ OLE [facility] (St 40 MG ZOLE:2 2016 ed [facility] [address]841 12:00: Medical, Release 00 AM ) Oral EST Capsule OMEPRAZOLE: 612014 Insurance Providers Payer name Policy type Policy ID Covered Covered green party's Policy P junior / Coverage green party ID relationship to [facility] [employer] ormation type hernandez [employer] [id number] SP [id number] MEDICARE MEDICAID [id number] SP [id number] [place] MED[place] [id number] 1 [id number] [facility] [id number] (HMO) MEDICAID OF [id number] [facility] MEDICARE [id number] SP [id number] [place] MED[place] [id number] PART B [employer] MEDICARE [id number] B Problems, Conditions, and Diagnoses Code Display Name Description Problem Effective Data Type Dates Source(s) Z00.00 Encounter for general ENCOUNTER FOR GENERAL Problem [facility] (St adult medical ADULT MEDICAL 12:00:00 AM Manuel's examination without EXAMINATION WITHOUT [facility], ) abnormal findings ABNORMAL FINDINGS K76.0 Fatty (change of) FATTY (CHANGE OF) Problem 03/03/2019 [facility] ([address] liver, not elsewhere LIVER, NOT ELSEWHERE 12:00 :00 AM Manuel's classified [facility], ) L60.0 Ingrowing nail INGROWIN NAIL Problem 03/03/2019 [facility] (St 12:00:00 AM [facility], ) M79.675 Pain in left toe(s) PAIN IN LEFT TOE(S) Problem 019 [facility] (St 12:00:00 AM [facility], ) M79.674 Pain in right toe(s) PAIN IN RIGHT TOE(S) Problem 12/04 [facility] (St 12:00:00 AM [facility], ) M79.671 Pain in right foot PAIN IN RIGHT FOOT Problem 9 [facility] (St 12:00:00 AM [facility], ) B35.1 Tinea unguium TINEA UNGUIUM Problem 12/02/2018 [facility] ( St 12:00:00 AM [facility], ) M20.41 Other hammer toe(s) OTHER HAMMER TOE(S) Problem 019 [facility] (St (acquired), right foot (ACQUIRED), RIGHT 12:00: 00 AM [facility], ) Z23 Encounter for ENCOUNTER FOR Problem 05/21/2018 [facility] ( St immunization IMMUNIZATION 12:00:00 AM [facility], ) R94.5 Abnormal results of ABNORMAL RESULTS OF Problem 018 [facility] (St liver function studies LIVER FUNCTION 12:00:00 AM [facility], ) J06.9 Acute upper ACUTE UPPER Problem 09/11/2017 [facility] (St respiratory infection, RESPIRATORY 12:00:00 AM [facility] unspecified INFECTION, [facility], ) UNSPECIFIED R91.8 Other nonspecific OTHER NONSPECIFIC Problem 02/19/2017 [facility] (St abnormal finding of ABNORMAL FINDING OF 12:00:0 0 AM Manuel's lung field LUNG FIELD [facility], ) M15.8 Other OTHER Problem 01/15/2017 [facility] (St polyosteoarthritis POLYOSTEOARTHRITIS 12:00:00 AM [facility], ) R06.00 Dyspnea, unspecified DYSPNEA, UNSPECIFIED Problem 01/08 [facility] (St 12:00:00 AM [facility], ) 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 Problem 7 [facility] (St nodule NODULE 12:00:00 AM [facility], ) K21.9 Gastro-esophageal GASTRO-ESOPHAGEAL Problem 10/09/2016 [facility] (St reflux disease without REFLUX DISEASE 12:00:00 AM Manuel's esophagitis WITHOUT ESOPHAGITIS [facility], ) K82.9 Disease of DISEASE OF Problem 08/21/2016 [facility] (St gallbladder, GALLBLADDER, 12:00:00 AM Manuel's unspecified UNSPECIFIED [facility], ) Surgeries/Procedures Procedure Description Date Indications Data Source(s) Documentation of current 03/11/2020 [facility] ([facility] medications (procedure) 12:00:00 AM [facility], ) OFFICE OUTPATIENT VISIT 15 03/11/2020 Maria Guadalupe MARTIN ([facility] MINUTES 12:00:00 AM [facility], ) Documentation of current 09/29/2019 [facility] ([facility] medications (procedure) 12:00:00 AM [facility], ) Documentation of current 09/29/2019 [facility] ([facility]ail's medications (procedure) 12:00:00 AM [facility], ) Documentation of current 09/29/2019 [facility] ([facility]ail's medications (procedure) 12:00:00 AM [facility], ) ECG ROUTINE ECG W/LEAST 12 09/29/2019 Maria Guadalupe MARTIN ([facility] LDS W/I&R 12:00:00 AM [facility], ) COLLECTION VENOUS BLOOD 09/29/2019 MED[facility] EN ([facility] VENIPUNCTURE 12:00:00 AM [facility], ) Documentation of current 07/16/2019 [facility] ([facility] medications (procedure) 12:00:00 AM EST edical, ) OFFICE OUTPATIENT VISIT 15 07/16/2019 Maria Guadalupe MARTIN ([facility] MINUTES 12:00:00 AM [facility] Medical, ) Documentation of current 06/02/2019 [facility] ([facility]ail's medications (procedure) 12:00:00 AM EDT edical, ) Documentation of current 06/02/2019 [facility] ([facility] medications (procedure) 12:00:00 AM EDT edical, ) Documentation of current 06/02/2019 [facility] ([facility] medications (procedure) 12:00:00 AM EDT edical, ) Documentation of current 06/02/2019 [facility] ([facility] medications (procedure) 12:00:00 AM EDT edical, ) Documentation of current 06/02/2019 [facility] ([facility] medications (procedure) 12:00:00 AM EDT edical, ) Documentation of current 06/02/2019 [facility] ([facility] medications (procedure) 12:00:00 AM EDT edical, ) Documentation of current 06/02/2019 [facility] ([facility] medications (procedure) 12:00:00 AM EDT edical, ) OFFICE OUTPATIENT VISIT 10 06/02/2019 Maria Guadalupe MARTIN ([facility] MINUTES 12:00:00 AM EDT Medical, PC) INFLUENZA VACCINE 06/02/2019 [facility] ([facility]'s 12:00:00 AM EDT Medical, PC) IMADM PRQ ID SUBQ/IM NJXS 06/02/2019 ME D[facility] ([facility]ail's 1 VACCINE 12:00:00 AM EDT Medical, PC) DEBRIDEMENT NAIL ANY 04/14/2019 [facility] ([facility] METHOD 6/> 12:00:00 AM EDT Medical, PC) DEBRIDEMENT NAIL ANY 03/05/2019 [facility] ([facility] METHOD 6/> 12:00:00 AM EDT Medical, PC) Documentation of current 03/03/2019 [facility] ([facility] medications (procedure) 12:00:00 AM EDT edical, ) Documentation of current 03/03/2019 [facility] ([facility] medications (procedure) [facility]00:[facility] Documentation of current 03/03/2019 [facility] ([facility]ail's medications (procedure) 12:00:00 AM EDT [facility], ) OFFICE OUTPATIENT VISIT 15 03/03/2019 Maria Guadalupe MARTIN [facility] OFFICE OUTPATIENT NEW 20 03/03/2019 [facility] ([facility] MINUTES 12:00:00 AM EDT [facility], ) COLLECTION VENOUS BLOOD 03/03/2019 MED[facility] EN ([facility] VENIPUNCTURE 12:00:00 AM EDT [facility], ) AVULSION NAIL PLATE 03/03/2019 [facility] ( [facility] PARTIAL/COMPLETE SIMPLE 1 12:00:00 AM EDT [facility], ) DEBRIDEMENT NAIL ANY 12/04/2018 [facility] ([facility] METHOD 6[facility] Documentation of current 12/02/2018 [facility] ([facility] medications (procedure) 12:00:00 [facility] Documentation of current 12/02/2018 [facility] ([facility]ail's medications (procedure) 12:00:00 AM EDT [facility], ) Documentation of current 12/02/2018 [facility] ([facility]ail's medications (procedure) 12:00:00 AM EDT [facility], ) OFFICE OUTPATIENT VISIT 25 12/02/2018 Maria Guadalupe MARTIN ([facility] MINUTES 12:00:00 AM [facility], ) OFFICE OUTPATIENT NEW 20 12/02/2018 [facility] ([facility] COLLECTION VENOUS BLOOD 12/02/2018 [facility] EN ([facility] VENIPUNCTURE [facility], ) ARTHROCENTESIS 12/02/2018 [facility] ([facility] ASPIR&/INJECTION SMALL 12:00:00 AM EDT [facility], ) JT/BURSA Documentation of current 05/21/2018 [facility] ([facility] medications (procedure) 12:00:00 AM EDT jose [facility]berto[facility], ) Documentation of current 05/21/2018 [facility] ([facility] medications (procedure) 12:00:00 [facility] OFFICE OUTPATIENT VISIT 15 05/21/2018 M EDGEN ([facility] MIN[facility] INFLUENZA VACCINE 05/21/2018 [facility] ([facility], [facility] IMADM PRQ ID SUBQ/IM NJXS 05/21/2018 ME DGEN ([facility]'s 1 VACCINE 12:00:00 AM [facility], ) Documentation of current 09/11/2017 [facility] ([facility]ail's medications (procedure) 12:00:00 AM EST [facility], ) Documentation of current 09/11/2017 [facility] ([facility]ail's medications (procedure) 12:00:00 AM [facility], ) Documentation of current 09/11/2017 [facility] ([facility]ail's medications (procedure) 12:00:00 AM EST [facility], ) OFFICE OUTPATIENT VISIT 15 09/11/2017 Maria Guadalupe MARTIN ([facility] MINUTES 12:00:00 AM [facility], ) COLLECTION VENOUS BLOOD 09/11/2017 MED[facility] EN ([facility] VENIPUNCTURE 12:00:00 AM [facility], ) OFFICE OUTPATIENT VISIT 15 03/12/2017 Maria Guadalupe MARTIN ([facility] MINUTES 12:00:00 AM [facility], ) Documentation of current 02/19/2017 [facility] ([facility]ail's medications (procedure) 12:00:00 AM EDT [facility], ) Documentation of current 02/19/2017 [facility] ([facility]ail's medications (procedure) 12:00:00 AM EDT [facility], ) Documentation of current 02/19/2017 [facility] ([facility]ail's medications (procedure) 12:00:00 AM EDT [facility], ) OFFICE OUTPATIENT VISIT 15 02/19/2017 Maria Guadalupe BARBOZAN ([facility] MINUTES 12:00:00 AM [facility], ) OFFICE OUTPATIENT VISIT 15 02/19/2017 Maria Guadalupe BARBOZAN ([facility] MINUTES 12:00:00 AM ED Medical, ) OFFICE OUTPATIENT VISIT 15 02/12/2017 Maria Guadalupe BARBOZAN ([facility] Documentation of current 01/15/2017 MED [facility] ([facility]ail's medications (procedure) 12:00:00 AM EDT [facility], ) Documentation of current 01/15/2017 MED [facility] ([facility]ail's medications (procedure) 12:00:00 AM EDT edical, ) OFFICE OUTPATIENT VISIT 15 01/15/2017 Maria Guadalupe MARTIN ([facility] MINUTES 12:00:00 AM EDT Medical, PC) Documentation of current 01/08/2017 MED [facility] ([facility]'s medications (procedure) 12:00:00 AM EDT edical, PC) Documentation of current 01/08/2017 [facility] ([facility] medications (procedure) 12:00:00 AM EDT edical, PC) Documentation of current 01/08/2017 [facility] ([facility] medications (procedure) 12:00:00 AM EDT edical, PC) Documentation of current 01/08/2017 [facility] ([facility] medications (procedure) 12:00:00 AM EDT edical, PC) Documentation of current 01/08/2017 [facility] ([facility] medications (procedure) 12:00:00 AM EDT edical, PC) Documentation of current 01/08/2017 [facility] ([facility] medications (procedure) 12:00:00 AM EDT edical, PC) Documentation of current 01/08/2017 [facility] ([facility] medications (procedure) 12:00:00 AM EDT edical, PC) Documentation of current 12/04/2016 [facility] ([facility] medications (procedure) 12:00:00 AM EDT edical, PC) Documentation of current 12/04/2016 [facility] ([facility]ail's medications (procedure) 12:00:00 AM EDT edical, ) OFFICE OUTPATIENT VISIT 15 12/04/2016 Maria Guadalupe MARTIN ([facility] MINUTES 12:00:00 AM EDT Medical, PC) COLLECTION VENOUS BLOOD 12/04/2016 MEDG EN ([facility] VENIPUNCTURE 12:00:00 AM EDT Medical, PC) Documentation of current 10/09/2016 [facility] ([facility]ail's medications (procedure) 12:00:00 AM EST edical, PC) Documentation of current 10/09/2016 [facility] ([facility] medications (procedure) 12:00:00 AM EST edical, PC) OFFICE OUTPATIENT VISIT 15 10/09/2016 Maria Guadalupe MARTIN ([facility] MINUTES 12:00:00 AM EST Medical, ) Documentation of current 08/21/2016 [facility] ([facility] medications (procedure) 12:00:00 AM EST Maria Guadalupe butt, PC) Documentation of current 08/21/2016 [facility] ([facility] medications (procedure) 12:00:00 AM EST Maria Guadalupe butt, PC) Documentation of current 08/21/2016 [facility] ([facility] medications (procedure) 12:00:00 AM EST Maria Guadalupe butt, PC) Documentation of current 08/21/2016 [facility] ([facility] medications (procedure) 12:00:00 AM EST Maria Guadalupe butt, PC) Documentation of current 08/21/2016 [facility] ([facility] medications (procedure) 12:00:00 AM EST Maria Guadalupe butt, ) OFFICE OUTPATIENT VISIT 15 08/21/2016 Maria Guadalupe MARTIN ([facility] MINUTES 12:00:00 AM EST Medical, ) Results ID Date Data Source [id number] 09/29/2019 12:00:00 AM EST [facility], ) Name Value Range Interpretation Description Data Sup porting Code Source(s) Document(s ) Color of Yellow Normal (applies [facility] (St Peritoneal to non-numeric Manuel's dialysis fluid results) Medical, PC) Appearance of Cloudy Abnormal (applies [facility] ( St Abdomen to non-numeric Manuel's results) Medical, PC) pH of Lower 5.0 Normal (applies [facility] (St respiratory to non-numeric Manuel's specimen results) Medical, PC) Specific gravity 1.022 Normal (applies [facility] (St of Pericardial to non-numeric Manuel's fluid by results) Medical, Refractometry PC) Glucose Negative Normal (applies [facility] (St [Mass/volume] in to non-numeric Manuel's Urine collected results) Medical, for unspecified PC) duration Bilirubin Negative Normal (applies [facility] (St [Presence] in to non-numeric Manuel's Peritoneal fluid results) Medical, PC) Ketones Negative Normal (applies [facility] (St [Presence] in to non-numeric Manuel's Blood by Tablet results) Medical, PC) OCCULT BLOOD Negative Normal (applies [facility] (St to non-numeric Manuel's results) Medical, PC) Protein Negative Normal (applies [facility] (St [Mass/volume] in to non-numeric Manuel's Lower results) Medical, respiratory PC) specimen Nitrite Negative Normal (applies [facility] (St [Presence] in to non-numeric Manuel's Urine by Test results) Medical, strip PC) Leukocyte Abnormal (applies [facility] (St esterase to non-numeric Manuel's [Presence] in results) [facility], Body fluid by PC) Automated test strip WBC > or = 60 Above high normal [facility] ([facility] Medical, PC) RBC 0-2 Normal (applies [facility] (St to non-numeric Manuel's results) Medical, ) SQUAMOUS None Seen Normal (applies [facility] (St EPITHELIAL CELLS to non-numeric Manuel's results) Medical, PC) Bacteria None Seen Normal (applies [facility] (St [Presence] in to non-numeric Manuel's Prostatic fluid results) Medical, by Light PC) microscopy HYALINE CAST None Seen Normal (applies [facility] (St to non-numeric Maunel's results) Medical, PC) Amorphous Many Above high normal MED[facility] (St sediment Manuel's [Presence] in Medical, Urine sediment PC) by Light microscopy COMMENTS Normal (applies [facility] (St to non-numeric Manuel's results) Medical, ) ID Date Data Source [id number] 09/29/2019 12:00:00 AM EST [facility] ([facility], ) Name Value Range Interpretation Description Data Sup porting Code Source(s) Document(s ) WBC 4.8 Normal (applies [facility] (St Thousand to non-numeric Manuel's /uL results) Medical, PC) RBC 4.25 Normal (applies [facility] (St Million/ to non-numeric Manuel's uL results) Medical, ) Hemoglobin 12.5 Normal (applies [facility] (St [Mass/volume] in g/dL to non-numeric Manuel's Mixed venous results) Medical, ) blood by Oximetry Hematocrit [Pure 38.3 % Normal (applies [facility] (St volume fraction] to non-numeric Manuel's of Blood by results) Medical, ) Automated count MCV 90.1 fL Normal (applies [facility] (St to non-numeric Manuel's results) Medical, PC) MCH 29.4 pg Normal (applies [facility] (St to non-numeric Manuel's results) Medical, PC) MCHC 32.6 Normal (applies [facility] (St g/dL to non-numeric Manuel's results) Medical, ) RDW 13.0 % Normal (applies [facility] (St to non-numeric Manuel's results) Medical, ) PLATELET COUNT 211 Normal (applies [facility] (S t Thousand to non-numeric Manuel's /uL results) Medical, ) MPV 11.9 fL Normal (applies [facility] (St to non-numeric Manuel's results) Medical, ) TOTAL 49.5 % Normal (applies [facility] (St NEUTROPHILS,% to non-numeric Manuel's results) Medical, ) MONOCYTES,% 9.4 % Normal (applies [facility] (St to non-numeric Manuel's results) Medical, ) TOTAL 38.4 % Normal (applies [facility] (St LYMPHOCYTES,% to non-numeric Manuel's results) Medical, ) EOSINOPHILS,% 1.9 % Normal (applies [facility] (St to non-numeric Manuel's results) Medical, ) BASOPHILS,% 0.8 % Normal (applies [facility] (St to non-numeric Manuel's results) Medical, ) LYMPHOCYTES,ABSO 1843 Normal (applies [facility] (St LUTE cells/uL to non-numeric Manuel's results) Medical, ) NEUTROPHILS,ABSO 2376 Normal (applies [facility] (St LUTE cells/uL to non-numeric Manuel's results) Medical, ) MONOCYTES,ABSOLU 451 Normal (applies [facility] (St TE cells/uL to non-numeric Manuel's results) Medical, ) EOSINOPHILS,ABSO 91 Normal (applies [facility] (St LUTE cells/uL to non-numeric Manuel's results) Medical, ) BASOPHILS,ABSOLU 38 Normal (applies [facility] (St TE cells/uL to non-numeric Manuel's results) Medical, ) DIFFERENTIAL Normal (applies [facility] (St to non-numeric Manuel's results) Medical, ) ID Date Data Source [id number] 09/29/2019 12:00:00 AM EST [facility], ) Name Value Range Interpretation Description Data Sup porting Code Source(s) Document(s ) PROTEIN, TOTAL 7.8 g/dL Normal (applies [facility] (S t to non-numeric Amnuel's results) Medical, ) Globulin 3.6 g/dL Normal (applies [facility] (St [Mass/time] in (calc) to non-numeric Manuel's 24 hour Urine results) Medical, ) Microalbumin 4.2 g/dL Normal (applies [facility] (St [Mass/time] in to non-numeric Manuel's Urine collected results) [facility], ) for unspecified duration ALBUMIN/GLOBULIN 1.2 Normal (applies [facility] (St RATIO (calc) to non-numeric Manuel's results) [facility], ) BILIRUBIN,TOTAL 0.3 Normal (applies MED[facility] ( St mg/dL to non-numeric Manuel's results) [facility], ) BILIRUBIN,DIRECT 0.1 Normal (applies MED[facility] (St mg/dL to non-numeric Manuel's results) [facility], ) AST 38 U/L Above high normal [facility] ([facility], ) Alkaline 74 U/L Normal (applies [facility] (St phosphatase to non-numeric Manuel's [Enzymatic results) [facility]) activity/volume] in Serum, Plasma or Blood ALT 38 U/L Above high normal [facility] ([facility], ) BILIRUBIN,INDIRE 0.2 Normal (applies MED[facility] (St CT mg/dL to non-numeric Manuel's results) [facility], ) ID Date Data Source [id number] 09/29/2019 12:00:00 AM EST [facility] (St [facility], ) Name Value Range Interpretation Description Data Sup porting Code Source(s) Document(s ) Glucose 106 Normal (applies [facility] (St [Mass/volume] in mg/dL to non-numeric Manuel's Urine collected results) [facility], ) for unspecified duration Sodium 140 Normal (applies [facility] (St [Moles/volume] mmol/L to non-numeric Manuel's in Serum, Plasma results) [facility], ) or Blood Potassium 4.0 Normal (applies [facility] (St [Mass/volume] in mmol/L to non-numeric Manuel's Blood results) [facility], ) Chloride 106 Normal (applies [facility] (St [Moles/volume] mmol/L to non-numeric Manuel's in Serum, Plasma results) [facility], ) or Blood Carbon dioxide 25 Normal (applies [facility] (S t [VFr/PPres] in mmol/L to non-numeric Manuel's Gas delivery results) [facility], ) system Urea nitrogen 15 mg/dL Normal (applies [facility] (St [Moles/volume] to non-numeric Manuel's in Blood results) [facility], ) Creatinine 0.75 Normal (applies [facility] (St [Interpretation] mg/dL to non-numeric Manuel's in Urine results) [facility]) BUN/CREATININE NOTE Normal (applies MED[facility] (S t RATIO to non-numeric Manuel's results) [facility]) Calcium 9.6 Normal (applies [facility] (St [Moles/volume] mg/dL to non-numeric Manuel's in Urine results) [facility]) collected for unspecified duration PROTEIN, TOTAL 7.8 g/dL Normal (applies [facility] (S t to non-numeric Manuel's results) [facility]) Microalbumin 4.2 g/dL Normal (applies [facility] (St [Mass/time] in to non-numeric Manuel's Urine collected results) [facility]) for unspecified duration Globulin 3.6 g/dL Normal (applies [facility] (St [Mass/time] in (calc) to non-numeric Manuel's 24 hour Urine results) [facility]) ALBUMIN/GLOBULIN 1.2 Normal (applies MED[facility] (St RATIO (calc) to non-numeric Manuel's results) [facility]) BILIRUBIN,TOTAL 0.3 Normal (applies MED[facility] ( St mg/dL to non-numeric Manuel's results) [facility]) Alkaline 74 U/L Normal (applies MED[facility] (St phosphatase to non-numeric Manuel's [Enzymatic results) [facility]) activity/volume] in Serum, Plasma or Blood AST 38 U/L Above high normal [facility] ([facility], ) ALT 38 U/L Above high normal [facility] ([facility]) EGFR 88 Normal (applies MEDGEN (St FIJIAN mL/min/1 to non-numeric Manuel's .73m2 results) [facility]) EGFR NON AFR 76 Normal (applies MED[facility] (St FIJIAN mL/min/1 to non-numeric Manuel's .73m2 results) [facility]) ID Date Data Source [id number] 03/03/2019 12:00:00 AM EDT MEDGEN ([facility]) Name Value Range Interpretation Description Data Sup porting Code Source(s) Document(s ) Request Test not Normal (applies to MEDGEN (St Problem performed non-numeric Manuel's . results) [facility]) ID Date Data Source [id number] 03/03/2019 12:00:00 AM EDT [facility] ([facility], ) Name Value Range Interpretation Description Data Sup porting Code Source(s) Document(s ) Protein 7.7 g/dL Normal (applies MEDGEN (St [Mass/volume] in to non-numeric Manuel's Serum or Plasma results) Medical, ) Microalbumin 4.1 g/dL Normal (applies MEDGEN (St [Mass/time] in to non-numeric Manuel's Urine collected for results) Medical, unspecified PC) duration Bilirubin.total 0.2 Normal (applies MEDGEN ( St [Mass/volume] in mg/dL to non-numeric Manuel's Serum or Plasma results) Medical, ) Bilirubin.conjugate 0.09 Normal (applies MEDG EN (St d [Mass/volume] in mg/dL to non-numeric Manuel's Serum or Plasma results) [facility], ) Aspartate 69 IU/L Above high MEDGEN (St aminotransferase normal Manuel's [Enzymatic Medical, activity/volume] in PC) Serum or Plasma Alkaline 82 IU/L Normal (applies MEDGEN (St phosphatase to non-numeric Manuel's [Enzymatic results) Medical, activity/volume] in ) Serum, Plasma or Blood Alanine 77 IU/L Above high MEDGEN (St aminotransferase normal Manuel's [Enzymatic Medical, activity/volume] in ) Serum or Plasma ID Date Data Source [id number] 12/02/2018 12:00:00 AM EDT MEDGEN ( [facility], ) Name Value Range Interpretation Description Data Sup porting Code Source(s) Document(s ) Vitamin D, 18.7 Below low normal MEDGEN (St 25-Hydroxy ng/mL [facility], ) ID Date Data Source [id number] 12/02/2018 12:00:00 AM EDT MEDGEN ([facility], ) Name Value Range Interpretation Description Data Sup porting Code Source(s) Document(s ) Vitamin B12 271 pg/mL Normal (applies to MEDGEN (S t non-numeric Manuel's results) [facility], ) Folate 17.8 Normal (applies to MEDGEN (St (Folic ng/mL non-numeric Manuel's Acid), Serum results) [facility], ) ID Date Data Source [id number] 12/02/2018 12:00:00 AM EDT MEDGEN ([facility], ) Name Value Range Interpretation Description Data Sup porting Code Source(s) Document(s ) Bilirubin.c 0.11 mg/dL Normal (applies to MEDGEN ( St onjugated non-numeric Manuel's [Mass/volum results) Medical, ) e] in Serum or Plasma ID Date Data Source [id number] 12/02/2018 12:00:00 AM EDT MEDGEN ([facility], ) Name Value Range Interpretation Description Data Sup porting Code Source(s) Document(s ) Cholesterol 160 Normal (applies MEDGEN (St [Mass/volume] in mg/dL to non-numeric Manuel's Serum or Plasma results) Medical, ) Triglyceride 89 mg/dL Normal (applies MEDGEN (St [Mass/volume] in to non-numeric Manuel's Serum or Plasma results) Medical, ) HDL Cholesterol 49 mg/dL Normal (applies MEDGEN ( St to non-numeric Manuel's results) Medical, ) VLDL Cholesterol 18 mg/dL Normal (applies MEDGEN (St Kurt to non-numeric Manuel's results) Medical, ) LDL Cholesterol 93 mg/dL Normal (applies MEDGEN ( St Calc to non-numeric Manuel's results) Medical, ) ID Date Data Source [id number] 12/02/2018 12:00:00 AM EDT MEDGEN ([facility], ) Name Value Range Interpretation Description Data Sup porting Code Source(s) Document(s ) Glucose 124 Above high MEDGEN (St [Mass/volume] in mg/dL normal Manuel's Urine collected for Medical, unspecified PC) duration Urea nitrogen 11 mg/dL Normal (applies MEDGEN (St [Mass/volume] in to non-numeric Manuel's Serum or Plasma results) Medical, ) Creatinine 0.70 Normal (applies MEDGEN (St [Interpretation] in mg/dL to non-numeric Manuel' s Urine results) Medical, ) eGFR If NonAfricn 83 Normal (applies MEDGEN (St Am mL/min/1 to non-numeric Manuel's .73 results) Medical, ) eGFR If Africn Am 95 Normal (applies MEDGEN (St mL/min/1 to non-numeric Manuel's .73 results) Medical, ) BUN/Creatinine 16 Normal (applies MEDGEN (S t Ratio to non-numeric Manuel's results) Medical, PC) Sodium 139 Normal (applies MEDGEN (St [Moles/volume] in mmol/L to non-numeric Manuel's Serum or Plasma results) Medical, ) Chloride 101 Normal (applies MEDGEN (St [Moles/volume] in mmol/L to non-numeric Manuel's Serum or Plasma results) Medical, PC) Potassium 4.0 Normal (applies MEDGEN (St [Mass/volume] in mmol/L to non-numeric Manuel's Blood results) Medical, ) Calcium 9.6 Normal (applies MEDGEN (St [Moles/volume] in mg/dL to non-numeric Manuel's Urine collected for results) Medical, unspecified PC) duration Carbon dioxide, 22 Normal (applies MEDGEN ( St total mmol/L to non-numeric Manuel's [Moles/volume] in results) Medical, Serum or Plasma PC) Protein 8.3 g/dL Normal (applies MEDGEN (St [Mass/volume] in to non-numeric Manuel's Serum or Plasma results) Medical, ) Globulin, Total 3.9 g/dL Normal (applies MEDGEN ( St to non-numeric Manuel's results) Medical, ) Microalbumin 4.4 g/dL Normal (applies MEDGEN (St [Mass/time] in to non-numeric Manuel's Urine collected for results) Medical, unspecified PC) duration A/G Ratio 1.1 Below low normal MEDGEN ([facility], ) Alkaline 101 IU/L Normal (applies MEDGEN (St phosphatase to non-numeric Manuel's [Enzymatic results) Medical, activity/volume] in PC) Serum, Plasma or Blood Bilirubin.total 0.4 Normal (applies MEDGEN ( St [Mass/volume] in mg/dL to non-numeric Manuel's Serum or Plasma results) Medical, ) Aspartate 53 IU/L Above high MEDGEN (St aminotransferase normal Manuel's [Enzymatic Medical, activity/volume] in PC) Serum or Plasma Alanine 59 IU/L Above high MEDGEN (St aminotransferase normal Manuel's [Enzymatic Medical, activity/volume] in PC) Serum or Plasma ID Date Data Source [id number] 12/02/2018 12:00:00 AM EDT MEDGEN ([facility], ) Name Value Range Interpretation Description Data Sup porting Code Source(s) Document(s ) Leukocytes 4.4 Normal (applies MEDGEN (St [#/volume] in x10E3/uL to non-numeric Manuel's Blood by results) [facility], ) Automated count Erythrocytes 4.48 Normal (applies MEDGEN (St [#/volume] in x10E6/uL to non-numeric Manuel's Blood by results) [facility], ) Automated count Hemoglobin 12.4 Normal (applies MEDGEN (St [Mass/volume] in g/dL to non-numeric Manuel's Blood results) [facility], ) Hematocrit 38.3 % Normal (applies MEDGEN (St [Volume to non-numeric Manuel's Fraction] of results) [facility], ) Blood by Automated count MCV 86 fL Normal (applies MEDGEN (St to non-numeric Manuel's results) [facility], ) MCH 27.7 pg Normal (applies MEDGEN (St to non-numeric Manuel's results) [facility], ) MCHC 32.4 Normal (applies MEDGEN (St g/dL to non-numeric Manuel's results) [facility], ) RDW 14.5 % Normal (applies MEDGEN (St to non-numeric Manuel's results) [facility], ) Platelets 219 Normal (applies MEDGEN (St [#/area] in x10E3/uL to non-numeric Manuel's Blood by results) [facility], ) Microscopy high power field Neutrophils [#] 54 % Normal (applies MEDGEN ( St in Body fluid by to non-numeric Manuel's Manual count results) [facility], ) Monocytes 8 % Normal (applies MEDGEN (St [#/volume] in to non-numeric Manuel's Cord blood results) [facility], ) Lymphs 33 % Normal (applies MEDGEN (St to non-numeric Manuel's results) [facility], ) Basos 1 % Normal (applies MEDGEN (St to non-numeric Manuel's results) [facility], ) Eos 3 % Normal (applies MEDGEN (St to non-numeric Manuel's results) [facility], ) Neutrophils 2.5 Normal (applies MEDGEN (St (Absolute) x10E3/uL to non-numeric Manuel's results) [facility], ) Monocytes(Absolu 0.4 Normal (applies MEDGEN (St te) x10E3/uL to non-numeric Manuel's results) [facility], ) Lymphs 1.5 Normal (applies MEDGEN (St (Absolute) x10E3/uL to non-numeric Manuel's results) Medical, ) Baso (Absolute) 0.0 Normal (applies MEDGEN ( St x10E3/uL to non-numeric Manuel's results) Medical, ) Eos (Absolute) 0.1 Normal (applies MEDGEN (S t x10E3/uL to non-numeric Manuel's results) Medical, ) Immature 1 % Normal (applies MEDGEN (St Granulocytes to non-numeric Manuel's results) Medical, ) Immature Grans 0.0 Normal (applies MEDGEN (S t (Abs) x10E3/uL to non-numeric Manuel's results) Medical, ) ID Date Data Source [id number] 09/11/2017 12:00:00 AM EST [facility] ([facility], ) Name Value Range Interpretation Description Data Sup porting Code Source(s) Document(s ) Protein 7.8 g/dL Normal (applies MEDGEN (St [Mass/volume] in to non-numeric Manuel's Serum or Plasma results) Medical, ) Albumin, Serum 4.2 g/dL Normal (applies MEDGEN (S t to non-numeric Manuel's results) [facility], ) Bilirubin.total 0.4 Normal (applies MEDGEN ( St [Mass/volume] in mg/dL to non-numeric Manuel's Serum or Plasma results) [facility], ) Bilirubin.conjugate 0.12 Normal (applies MEDG EN (St d [Mass/volume] in mg/dL to non-numeric Manuel's Serum or Plasma results) Medical, ) Aspartate 57 IU/L Above high MEDGEN (St aminotransferase normal Manuel's [Enzymatic Medical, activity/volume] in ) Serum or Plasma Alkaline 75 IU/L Normal (applies MEDGEN (St Phosphatase, S to non-numeric Manuel's results) [facility], ) Alanine 105 IU/L Above high MEDGEN (St aminotransferase normal Manuel's [Enzymatic Medical, activity/volume] in ) Serum or Plasma ID Date Data Source [id number] 09/11/2017 12:00:00 AM EST [facility] ([facility], ) Name Value Range Interpretation Description Data Sup porting Code Source(s) Document(s ) Leukocytes 5.7 Normal (applies MEDGEN (St [#/volume] in x10E3/uL to non-numeric Manuel's Blood by results) Medical, ) Automated count Erythrocytes 4.40 Normal (applies MEDGEN (St [#/volume] in x10E6/uL to non-numeric Manuel's Blood by results) [facility], ) Automated count Hemoglobin 13.1 Normal (applies MEDGEN (St [Mass/volume] in g/dL to non-numeric Manuel's Blood results) [facility], ) Hematocrit 39.0 % Normal (applies MEDGEN (St [Volume to non-numeric Manuel's Fraction] of results) [facility], ) Blood by Automated count MCV 89 fL Normal (applies MEDGEN (St to non-numeric Manuel's results) [facility], ) MCH 29.8 pg Normal (applies MEDGEN (St to non-numeric Manuel's results) [facility], ) RDW 14.2 % Normal (applies MEDGEN (St to non-numeric Manuel's results) [facility]) MCHC 33.6 Normal (applies MEDGEN (St g/dL to non-numeric Manuel's results) [facility], ) Platelets 276 Normal (applies MEDGEN (St [#/area] in x10E3/uL to non-numeric Manuel's Blood by results) [facility], ) Microscopy high power field Lymphs 38 % Normal (applies MEDGEN (St to non-numeric Manuel's results) [facility], ) Neutrophils [#] 47 % Normal (applies MEDGEN ( St in Body fluid by to non-numeric Manuel's Manual count results) [facility], ) Eos 2 % Normal (applies MEDGEN (St to non-numeric Manuel's results) [facility], ) Monocytes 12 % Normal (applies MEDGEN (St [#/volume] in to non-numeric Manuel's Cord blood results) [facility], ) Basos 0 % Normal (applies MEDGEN (St to non-numeric Manuel's results) [facility], ) Neutrophils 2.7 Normal (applies MEDGEN (St (Absolute) x10E3/uL to non-numeric Manuel's results) [facility], ) Lymphs 2.2 Normal (applies MEDGEN (St (Absolute) x10E3/uL to non-numeric Manuel's results) [facility], ) Monocytes(Absolu 0.7 Normal (applies MEDGEN (St te) x10E3/uL to non-numeric Manuel's results) [facility], ) Eos (Absolute) 0.1 Normal (applies MEDGEN (S t x10E3/uL to non-numeric Manuel's results) Medical, ) Baso (Absolute) 0.0 Normal (applies MEDGEN ( St x10E3/uL to non-numeric Manuel's results) Medical, ) Immature 1 % Normal (applies MEDGEN (St Granulocytes to non-numeric Manuel's results) Medical, ) Immature Grans 0.0 Normal (applies MEDGEN (S t (Abs) x10E3/uL to non-numeric Manuel's results) Medical, ) ID Date Data Source [id number] 12/04/2016 12:00:00 AM EDT MEDGEN ([facility], ) Name Value Range Interpretation Description Data Sup porting Code Source(s) Document(s ) Sedimentation 54 mm/hr Above high normal MEDGEN ( [facility], ) ID Date Data Source [id number] 12/04/2016 12:00:00 AM EDT MEDGEN ([facility], ) Name Value Range Interpretation Description Data Sup porting Code Source(s) Document(s ) QuantiFERON TB Negative Normal (applies MEDGEN (S t Gold to non-numeric Manuel's results) Medical, ) QuantiFERON Normal (applies MEDGEN (St Criteria to non-numeric Manuel's results) Medical, ) QuantiFERON TB 0.13 IU/mL Normal (applies MEDGEN ( St Ag Value to non-numeric Manuel's results) Medical, ) QuantiFERON 0.11 IU/mL Normal (applies MEDGEN (St Nil Value to non-numeric Manuel's results) Medical, ) QuantiFERON >10.00 Normal (applies MEDGEN (St Mitogen Value to non-numeric Manuel's results) Medical, ) QFT TB Ag 0.02 IU/mL Normal (applies MEDGEN (St minus Nil to non-numeric Manuel's Value results) Medical, ) Interpretation Normal (applies MEDGEN (S t : to non-numeric Manuel's results) Medical, ) ID Date Data Source [id number] 12/04/2016 12:00:00 AM EDT MEDGEN ([facility], ) Name Value Range Interpretation Description Data Sup porting Code Source(s) Document(s ) QuantiFERON Normal (applies to MEDGEN (S t Incubation non-numeric Manuel's results) Medical, ) ID Date Data Source [id number] 12/04/2016 12:00:00 AM EDT MEDGEN ([facility], ) Name Value Range Interpretation Description Data Sup porting Code Source(s) Document(s ) Leukocytes 5.5 Normal (applies MEDGEN (St [#/volume] in x10E3/uL to non-numeric Manuel's Blood by results) Medical, ) Automated count Erythrocytes 4.44 Normal (applies MEDGEN (St [#/volume] in x10E6/uL to non-numeric Manuel's Blood by results) Medical, ) Automated count Hemoglobin 13.0 Normal (applies MEDGEN (St [Mass/volume] in g/dL to non-numeric Manuel's Blood results) Medical, ) Hematocrit 39.7 % Normal (applies MEDGEN (St [Volume to non-numeric Manuel's Fraction] of results) Medical, ) Blood by Automated count MCV 89 fL Normal (applies MEDGEN (St to non-numeric Manuel's results) Medical, ) MCH 29.3 pg Normal (applies MEDGEN (St to non-numeric Manuel's results) Medical, ) MCHC 32.7 Normal (applies MEDGEN (St g/dL to non-numeric Manuel's results) Medical, ) RDW 14.0 % Normal (applies MEDGEN (St to non-numeric Manuel's results) Medical, ) Platelets 199 Normal (applies MEDGEN (St [#/area] in x10E3/uL to non-numeric Manuel's Blood by results) Medical, ) Microscopy high power field Neutrophils [#] 41 % Normal (applies MEDGEN ( St in Body fluid by to non-numeric Manuel's Manual count results) Medical, ) Lymphs 45 % Normal (applies MEDGEN (St to non-numeric Manuel's results) Medical, ) Monocytes 9 % Normal (applies MEDGEN (St [#/volume] in to non-numeric Manuel's Cord blood results) Medical, ) Eos 5 % Normal (applies MEDGEN (St to non-numeric Manuel's results) Medical, ) Basos 0 % Normal (applies MEDGEN (St to non-numeric Manuel's results) Medical, ) Neutrophils 2.3 Normal (applies MEDGEN (St (Absolute) x10E3/uL to non-numeric Manuel's results) [facility], ) Lymphs 2.5 Normal (applies MEDGEN (St (Absolute) x10E3/uL to non-numeric Manuel's results) [facility]) Monocytes(Absolu 0.5 Normal (applies MEDGEN (St te) x10E3/uL to non-numeric Manuel's results) [facility]) Eos (Absolute) 0.3 Normal (applies MEDGEN (S t x10E3/uL to non-numeric Manuel's results) [facility]) Baso (Absolute) 0.0 Normal (applies MEDGEN ( St x10E3/uL to non-numeric Manuel's results) [facility]) Immature Grans 0.0 Normal (applies MEDGEN (S t (Abs) x10E3/uL to non-numeric Manuel's results) [facility]) Immature 0 % Normal (applies MEDGEN (St Granulocytes to non-numeric Manuel's results) [facility]) Procedure Social History Code Duration Value Status Description Data Source(s ) Smoking 03/11/2020 NO SMOKING NO completed NO SMOKING NO MEDGEN (St 12:00:00 AM EDT DRINKING DRINKING [facility]) Smoking 03/11/2020 Unknown if ever completed Unknown if ever MEDG EN (St 12:00:00 AM EDT smoked smoked [facility]) Vital Signs ID Date Data Source UNK Name Value Range Interpretation Code Description Data Source(s) Diastolic blood 82 mm[Hg] 82 mm[Hg] MEDGEN (S t pressure [facility]) Systolic blood 130 mm[Hg] 130 mm[Hg] MED[facility] ([facility]) Body weight 142 lb 142 lb [facility] Body mass index 27.1 kg/m2 27.1 kg/m2 MEDGEN (S t (BMI) [Ratio] [facility]) Diastolic blood 80 mm[Hg] 80 mm[Hg] MEDGEN (S t pressure [facility]) Systolic blood 122 mm[Hg] 122 mm[Hg] MEDGEN ([facility]) Body weight 139 lb 139 lb [facility] Body height 60 in [facility] Heart rate 72 /min 72 /min [facility] Inhaled oxygen 98 % 98 % MEDGEN ([facility]) Body mass index 27.9 kg/m2 27.9 kg/m2 MEDGEN (S t (BMI) [Ratio] [facility]) Diastolic blood 80 mm[Hg] 80 mm[Hg] MEDGEN ([facility]) Systolic blood 142 mm[Hg] 142 mm[Hg] MEDGEN ([facility]) Body weight 143 lb 143 lb [facility] ([facility] Body height 60 in 60 in [facility] Respiratory rate 12 /min 12 /min [facility] ( [facility] Body mass index 27.9 kg/m2 27.9 kg/m2 MEDGEN (S t (BMI) [Ratio] [facility]) Diastolic blood 72 mm[Hg] 72 mm[Hg] MEDGEN ([facility]) Systolic blood 170 mm[Hg] 170 mm[Hg] MEDGEN ([facility]) Body weight 143 lb 143 lb [facility] ([facility] Body height 60 in 60 in [facility] ([facility] Body mass index 27.9 kg/m2 27.9 kg/m2 MEDGEN (S t (BMI) [Ratio] [facility]) Diastolic blood 72 mm[Hg] 72 mm[Hg] MEDGEN ([facility]) Systolic blood 170 mm[Hg] 170 mm[Hg] MEDGEN ([facility]) Body weight 143 lb 143 lb [facility] ([facility] Body height 60 in 60 in [facility] ([facility] Body mass index 29.5 kg/m2 29.5 kg/m2 MEDGEN (S t (BMI) [Ratio] [facility]) Diastolic blood 80 mm[Hg] 80 mm[Hg] MEDGEN ([facility]) Systolic blood 128 mm[Hg] 128 mm[Hg] MEDGEN ([facility]) Body weight 151 lb 151 lb [facility] ([facility] Body height 60 in 60 in [facility] Body mass index 29.7 kg/m2 29.7 kg/m2 MEDGEN (S t (BMI) [Ratio] [facility]) Diastolic blood 88 mm[Hg] 88 mm[Hg] [facility]) Systolic blood 122 mm[Hg] 122 mm[Hg] MEDGEN ([facility]) Body weight 152 lb 152 lb [facility] Body height 60 in 60 in [facility] Heart rate 79 /min 79 /min [facility] Inhaled oxygen 96 % 96 % [facility] ([facility]) Body mass index 30.7 kg/m2 30.7 kg/m2 MEDGEN (S t (BMI) [Ratio] [facility]) Diastolic blood 86 mm[Hg] 86 mm[Hg] [facility]) Systolic blood 120 mm[Hg] 120 mm[Hg] MEDGEN ([facility]) Body weight 157 lb 157 lb [facility] Body height 60 in 60 in [facility] Body mass index 29.3 kg/m2 29.3 kg/m2 MEDGEN (S t (BMI) [Ratio] [facility]) Diastolic blood 76 mm[Hg] 76 mm[Hg] [facility] ([facility]) Systolic blood 118 mm[Hg] 118 mm[Hg] MEDGEN ([facility]) Body weight 150 lb 150 lb [facility] Body height 60 in 60 in [facility] Body mass index 30.1 kg/m2 30.1 kg/m2 MEDGEN (S t (BMI) [Ratio] [facility]) Diastolic blood 74 mm[Hg] 74 mm[Hg] [facility] ([facility]) Systolic blood 130 mm[Hg] 130 mm[Hg] MEDGEN ([facility]) Body weight 154 lb 154 lb [facility] ([facility] Body height 60 in 60 in [facility] ([facility] Inhaled oxygen 94 % 94 % MED[facility] ([facility]) Inhaled oxygen 97 % 97 % MED[facility] ([facility]) Body mass index 29.9 kg/m2 29.9 kg/m2 MEDGEN (S t (BMI) [Ratio] [facility]) Diastolic blood 78 mm[Hg] 78 mm[Hg] MEDGEN (S t [facility]) Systolic blood 140 mm[Hg] 140 mm[Hg] MEDGEN ([facility]) Body weight 153 lb 153 lb [facility] ([facility] Body height 60 in 60 in [facility] ([facility] Inhaled oxygen 97 % 97 % MED[facility] ([facility]) Body mass index 29.5 kg/m2 29.5 kg/m2 MEDGEN (S t (BMI) [Ratio] [facility]) Diastolic blood 70 mm[Hg] 70 mm[Hg] MEDGEN (S t [facility]) Systolic blood 138 mm[Hg] 138 mm[Hg] MEDGEN ([facility]) Body weight 151 lb 151 lb [facility] ([facility] Body height 60 in 60 in [facility] ([facility] Inhaled oxygen 97 % 97 % MED[facility] ([facility]) Body mass index 29.3 kg/m2 29.3 kg/m2 MEDGEN (S t (BMI) [Ratio] [facility]) Diastolic blood 84 mm[Hg] 84 mm[Hg] MEDGEN (S t [facility]) Systolic blood 122 mm[Hg] 122 mm[Hg] MEDGEN ([facility]) Body weight 150 lb 150 lb [facility] ([facility] Body height 60 in 60 in [facility] ([facility]) Heart rate 72 /min 72 /min [facility] ([facility] Respiratory rate 18 /min 18 /min [facility] ( [facility]) Inhaled oxygen 97 % 97 % MEDGEN ([facility], ) Body mass index 29.3 kg/m2 29.3 kg/m2 MEDGEN (S t (BMI) [Ratio] [facility], ) Diastolic blood 80 mm[Hg] 80 mm[Hg] MEDGEN (S t pressure [facility]) Systolic blood 150 mm[Hg] 150 mm[Hg] MEDGEN ([facility]) Body weight 150 lb 150 lb [facility] ([facility] Body height 60 in 60 in [facility] ([facility] Body mass index 29.3 kg/m2 29.3 kg/m2 MEDGEN (S t (BMI) [Ratio] [facility], ) Diastolic blood 82 mm[Hg] 82 mm[Hg] MEDGEN (S t pressure [facility]) Systolic blood 140 mm[Hg] 140 mm[Hg] MEDGEN ([facility]) Body weight 150 lb 150 lb [facility] ([facility] [place]) Body height 60 in 60 in [facility] [place] [place] [place] Body mass index 29.9 kg/m2 29.9 kg/m2 MEDGEN (S t (BMI) [Ratio] [facility], ) Diastolic blood 84 mm[Hg] 84 mm[Hg] [facility] (S t [facility]) Systolic blood 140 mm[Hg] 140 mm[Hg] MED[facility] ([facility]) Body weight 153 lb 153 lb [facility] [place] [place] Body height 60 in 60 in [facility] [place] [place] Body mass index 29.9 kg/m2 29.9 kg/m2 MEDGEN (S t (BMI) [Ratio] [facility] [place]) Diastolic blood 90 mm[Hg] 90 mm[Hg] [facility] (S t pressure [facility] [place]) Systolic blood 140 mm[Hg] 140 mm[Hg] MEDGEN ([facility]) Body weight 153 lb 153 lb [facility] [place] [place] [facility] [place] Body height 60 in 60 in [facility] [place] [place] [place]
[2020-04-24] MEDS ORDERED: SODIUM CHLORIDE 1,000 ML IV SCH (23:30)
[2020-04-24 23:47] LABS: BASO % 0.5 % (0-2.0); EOS % 0.2 % (0-4.5); HEMATOCRIT 39.8 % (32.4-45.2); HEMOGLOBIN 13.3 GM/dL (10.7-15.3); LYMPH % 18.8 % (8-40); MCH 30.2 pg (25.7-33.7); MCHC 33.3 g/dl (32.0-36.0); MEAN CELL VOLUME 90.6 fl (80-96); MEAN PLT VOLUME 9.1 fl (7.5-11.1); MONO % 7.5 % (3.8-10.2); PLATELET COUNT 189 K/MM3 (134-434); RBC 4.39 M/mm3 (3.60-5.2); RDW 13.8 % (11.6-15.6)
[2020-04-25 00:01] LABS: INR 1.31 (0.83-1.09); PROTHROMBIN TIME (PATIENT) 15.5 SEC (9.7-13.0)
[2020-04-25 00:04] LABS: ACTIVATED PTT 32.8 SECONDS (25.2-36.5)
[2020-04-25 00:08] LABS: BILIRUBIN,TOTAL 0.3 mg/dL (0.2-1); BLOOD UREA NITROGEN 14.3 mg/dL (7-18); CALCIUM 9.2 mg/dL (8.5-10.1); CREATININE 0.7 mg/dL (0.55-1.3); POTASSIUM 3.7 mmol/L (3.5-5.1); TOT PROT 8.3 g/dl (6.4-8.2)
--- NOTE | 2020-04-25 00:51 | PDOC ---
History of Present Illness - General Chief Complaint: Pain Stated Complaint: PAIN Time Seen by Provider: 04/24/20 22:55 - History of Present Illness Initial Comments: 04/25/20 00:48 79F PMH Asthma and GERD c/o 3 days of right sided numbness and weakness of the legs that is on/off. Currently asymptomatic. Denies headaches, vision/hearing changes, changes in personality, slurring in speech, chest pain, sob, n/v/d, urinary sx. Has no pain. grandson at bedside is concerned about occasional left sided jerking. Past History - Medical History Allergies/Adverse Reactions: Allergies Allergy/AdvReac Type Severity Reaction Status Date / Time No Known Drug Allergies Allergy Verified 04/24/20 22:20 Home Medications: Ambulatory Orders Linaclotide [Linzess] 72 mcg PO 04/09/18 Omeprazole 04/09/18 Asthma: Yes (RESOLVED) Cancer: No Cardiac Disorders: No CVA: No COPD: No CHF: No Dementia: No Diabetes: No GI Disorders: Yes (REFLUX) Disorders: No HTN: No Hypercholesterolemia: No Liver Disease: No Seizures: No Thyroid Disease: No - Surgical History Abdominal Surgery: No Appendectomy: No Cardiac Surgery: No Cholecystectomy: Yes Lung Surgery: No Neurologic Surgery: No Orthopedic Surgery: No - Reproductive History Is Patient Now?: No - Psycho-Social/Smoking History Smoking History: Never smoked Have you smoked in the past 12 months: No Information on smoking cessation initiated: No - Substance Abuse Hx (Audit-C & DAST Scrn) How often the patient has a drink containing alcohol: Never Score: In Men: 4 or > Positive; In Women: 3 or > Positive: 0 Screen Result (Pos requires Nsg. Audit-10AR): Negative In the last yr the pt used illegal drug/Rx for NonMed reason: No Score: Yes response is considered Positive: 0 Screen Result (Positive result requires Nsg. DAST-10): Negative Review of Systems - Review of Systems Comments:: 04/25/20 08:44 CONSTITUTIONAL: Denies F / C HEENT: Denies headache, lightheadedness, dizziness, changes in vision / hearing, diplopia, blurry vision, sore throat, rhinorrhea RESP: Denies SOB, cough, orthopnea, GALLEGOS CARD: Denies chest pain, palpitations GI: Denies N / V / D, abdominal pain, bloody stool, inability to tolerate PO : Denies dysuria, hematuria, frequency NEURO: +numbness and weakness of the RUE and RLE episodically. MSK: Denies back pain SKIN: Denies rashes *Physical Exam - Vital Signs Last Vital Signs Temp Pulse Resp BP Pulse Ox 99.1 F 81 20 178/86 H 97 04/24/20 22:20 04/24/20 22:20 04/24/20 22:20 04/24/20 22:20 04/24/20 22:20 - Physical Exam 04/25/20 08:45 GEN: Well appearing, NAD, comfortable. AAOx3. HEENT: NC/AT, CN II-XII grossly intact, EOMI, PERRLA. No facial asymmetry. Moist mucous membranes; nonerythematous posterior oropharynx w/o exudates. Normal voice. Supple neck, FROM CV: S1/S2, RRR, no m/r/g LUNG: CTAB, no wheezes, crackles, rales, rhonchi. GI: Soft, ndnt, +BS, no guarding, no rebound. No masses. Neg CVAT b/l. MSK: 2+ distal pulses. No LE edema. No obvious deformities of all extremities. SKIN: Warm, dry, no rashes appreciated. PSYCH: Normal mood and affect. NEURO: Moving all extremities well. 5/5 UE strength b/l. 5/5 LE strength b/l. Sensation symmetric and intact throughout. No ataxia on FTN or heel-valentino. Mild pronator drift RUE. ED Treatment Course - LABORATORY CBC & Chemistry Diagram: 04/24/20 23:15 04/24/20 23:15 - ADDITIONAL ORDERS Additional order review: Laboratory Results 04/24/20 04/24/20 23:15 23:15 PT with INR 15.50 H INR 1.31 H PTT (Actin FS) 32.8 Sodium 139 Potassium 3.7 Chloride 104 Carbon Dioxide 27 Anion Gap 8 BUN 14.3 Creatinine 0.7 Est GFR (CKD-EPI)AfAm 94.84 Est GFR (CKD-EPI)NonAf 81.83 Random Glucose 116 H Calcium 9.2 Total Bilirubin 0.3 AST 31 ALT 47 Alkaline Phosphatase 87 Creatine Kinase 302 H Creatine Kinase Index 2.0 CK-MB (CK-2) 6.1 H Troponin I 0.04 Total Protein 8.3 H Albumin 4.0 Triglycerides 96 Cholesterol 171 Total LDL Cholesterol 103 H HDL Cholesterol 53 04/24/20 23:15 RBC 4.39 MCV 90.6 MCHC 33.3 RDW 13.8 MPV 9.1 Neutrophils % 73.0 D Lymphocytes % 18.8 D Monocytes % 7.5 Eosinophils % 0.2 D Basophils % 0.5 - RADIOLOGY Radiology Studies Ordered: Category Date Time Status HEAD CT (STROKE) [CT] Stat CT Scan 04/25/20 00:22 Taken Medical Decision Making - Medical Decision Making 04/25/20 08:45 79F with 3 days of episodic right arm and leg weakness and numbness. Now asymptomatic. Neuro intact except mild pronator drift on the RUE. Will r/o acute intracranial process and metabolic/electrolyte abnormalities. - CBC, CMP, Cardiac - EKG - CT head and neck 04/25/20 03:42 CT head read back from [facility] as negative Findings: There is no acute intraparenchymal hemorrhage. There is no intra or extra-axial collection. No mass effect or midline shift. No evidence for major vessel acute territorial infarction. Wade-white matter differentiation is maintained. There is small vessel ischemic change and atrophy. Note is made of bilateral basal ganglia calcification. The paranasal sinuses and mastoid air cells are unopacified. Visualized orbits are unremarkable. Calvarium and soft tissues are unremarkable. Impression: 1. No acute intracranial process. One or more of the following dose reduction techniques were used: Automated exposure control adjustment of the mA and/or kV according to the patient size, use of iterative reconstructive technique. One or more of the following dose reduction techniques were used: automated exposure control, adjustment of the mA and/or kV according to patient size, use of iterative reconstructive technique. THIS DOCUMENT HAS BEEN ELECTRONICALLY SIGNED Gay Castanon MD 04/25/2020 00:38 EST M.D. Please call [facility] [phone] with questions. INTERPRETING RADIOLOGIST: Gay Castanon MD Electronically Signed: Apr 25, 2020 12:40AM EDT Patient Full Name: DAIN NGUYỄN Patient Accession No: [id number] Patient : 1940 Reason for Exam: r/o cva/ tia Referring Physician: LIGIA JACKSON RESIDENT DELMA GAUTAM THIS IS A PRELIMINARY REPORT DATE OF SERVICE: 2020-04-25 00:24:15 IMAGES: [id number] EXAM: HEAD CT (STROKE) ADDENDUM:These findings were verbally communicated to Dr Brennan, Physician resident on by myself Sun April 25 2020 00:45:26 EDT. One or more of the following dose reduction techniques were used: automated exposure control, adjustment of the mA and/or kV according to patient size, use of iterative reconstructive technique. THIS DOCUMENT HAS BEEN ELECTRONICALLY SIGNED Gay Castanon MD 04/25/2020 00:46 EST M.D. Please call [facility] [phone] with questions. INTERPRETING RADIOLOGIST: Gay Castanon MD Electronically Signed: Apr 25, 2020 12:47AM EDT EXAM: CT CERVICAL SPINE WITHOUT CONTRAST No acute fracture or traumatic malalignment. Multilevel spondylosis. Areas of moderate to marked neural foraminal stenosis, worst at C3-C4 and C4-C5 on the right. No substantial canal stenosis. Straightening of cervical lordosis, possibly due to positioning or muscle spasm. One or more of the following dose reduction techniques were used: automated exposure control, adjustment of the mA and/or kV according to patient size, use of iterative reconstructive technique. THIS DOCUMENT HAS BEEN ELECTRONICALLY SIGNED Rosaline Dasilva M.D. 04/25/2020 03:35 EST M.D. Please call [facility] [phone] with questions. INTERPRETING RADIOLOGIST: Rosaline Dasilva MD Electronically Signed: Apr 25, 2020 03:37AM EDT 04/25/20 06:[address] reports and discharged w/ neuro f/u EKG 23:57 HR 76 NSR axis intervals wnl no PACO/D no TWI Discharge - Discharge Information Problems reviewed: Yes Clinical Impression/Diagnosis: Spinal stenosis, cervical region, Numbness Condition: Good Disposition: HOME - Admission No - Follow up/Referral Referrals: Chema Lloyd MD [Primary Care Provider] - Concepcion Mata MD [Staff Physician] - - Patient Discharge Instructions Patient Printed Discharge Instructions: DI for Spinal Stenosis Additional Instructions: Follow up with Neurology in the next 5 days. We are referring you to Dr. Mata, please call the attached number to schedule an appointment. You were provided copies of your CT Head and Neck report; please provide to the Neurologist. Follow up with your primary care doctor in the next 5 days. Return to the Emergency Department if you experience new or worsening symptoms. Print Language: SPA - Post Discharge Activity
[2020-04-25] MEDS ORDERED: LIDOCAINE 5% TOPICAL PATCH TP ONE (01:09)
[2020-04-25] MEDS ORDERED: LIDOCAINE 5% TOPICAL PATCH ONE (01:16)
--- NOTE | 2020-04-25 02:43 | PDOC ---
Documentation entered by Itzel Harkins SCRIBE, acting as scribe for Zonia Plascencia MD. Zonia Plascencia MD: This documentation has been prepared by the marciaibe, Itzel Harkins SCRIBE, under my direction and personally reviewed by me in its entirety. I confirm that the documentation accurately reflects all work, treatment, procedures, and medical decision making performed by me. Attending Attestation - Resident Resident Name: Faustino - ED Attending Attestation I have performed the following: I have examined & evaluated the patient, The case was reviewed & discussed with the resident, I agree w/resident's findings & plan - HPI HPI: 04/25/20 01:10 The patient is an 79-year-old female with a past medical history significant for asthma, GERD, and ventral hernia who presents to the emergency department with numbness and weakness. The patient presents with 3-4 days of episodic right- sided arm and leg numbness and weakness. Denies any pain. Per the patients Grandson, the patient had an additional complaint of intermittent episodes of left arm jerking. Denies headache, visual changes, slurred speech, or facial droop. - Physicial Exam PE: 04/25/20 01:10 GENERAL: Awake, alert, and fully oriented, in no acute distress HEAD: No signs of trauma EYES: PERRLA, EOMI, sclera anicteric, conjunctiva clear ENT: Auricles normal inspection, hearing grossly normal, nares patent, oropharynx clear without exudates. Moist mucosa NECK: Normal ROM, supple, no lymphadenopathy, JVD, or masses LUNGS: Breath sounds equal, clear to auscultation bilaterally. No wheezes, and no crackles HEART: Regular rate and rhythm, normal S1 and S2, no murmurs, rubs or gallops ABDOMEN: Soft, nontender, normoactive bowel sounds. No guarding, no rebound. No masses EXTREMITIES: Normal range of motion, no edema. No clubbing or cyanosis. No cords, erythema, or tenderness NEUROLOGICAL: +right leg weakness compared to left, otherwise cranial nerves II through XII grossly intact. Normal speech. SKIN: Warm, Dry, normal turgor, no rashes or lesions noted. - Medical Decision Making 04/25/20 01:19 Pt has no neurologic findings other than minimal weakness in her right leg compared to the left side. 04/25/20 01:20 Pt has good strength in the right arm. She states that she never lost strength over the past 3 days. She lives with her hubby and she cooks and cleans and everything has been the same. She just feels numb and pins and needles. She will have a CT scan of the c spine. 04/25/20 01:21 BP slight;y elevated. 188 systolic on the right and 166 on the left. Pt is happy to hear that she is leaving if her Cspine CT is back normal. She will follow with PMD Gabino for elevated BP. She has never had elevated BP. This is the first time. She will follow with PMD. 04/25/20 02:41 CT c spine result pending 04/25/20 03:42 Patient Name: DELMA GAUTAM THIS IS A PRELIMINARY REPORT DATE OF SERVICE: 2020-04-25 02:23:52 IMAGES: 233 EXAM: CT CERVICAL SPINE WITHOUT CONTRAST No acute fracture or traumatic malalignment. Multilevel spondylosis. Areas of moderate to marked neural foraminal stenosis, worst at C3-C4 and C4-C5 on the right. No substantial canal stenosis. Straightening of cervical lordosis, possibly due to positioning or muscle spasm. Pt is stable to go home; she will follow with neurology outpatient Heart Score/ECG Review - ECG Intrepretation Rhythm: Regular Rhythm - Weare Weare: Normal - P and OK Delta Wave(s) Present: No WPW: No - QRS Poor R Wave Progression: No Q Wave Present: No - ST and T Early Repolarization: No Non Specific ST-T Wave changes: No - ECG Impressions Normal ECG: Yes Non-specific ST Elevation: No Ischemic Changes: No Bradycardia: No Torsades ayaan Pointes: No WPW: No Discharge - Discharge Information Problems reviewed: Yes Clinical Impression/Diagnosis: Spinal stenosis, cervical region, Numbness Condition: Good Disposition: HOME - Admission No - Follow up/Referral Referrals: Chema Lloyd MD [Primary Care Provider] - Concepcion Mata MD [Staff Physician] - - Patient Discharge Instructions Patient Printed Discharge Instructions: DI for Spinal Stenosis Additional Instructions: Follow up with Neurology in the next 5 days. We are referring you to Dr. Mata, please call the attached number to schedule an appointment. You were provided copies of your CT Head and Neck report; please provide to the Neurologist. Follow up with your primary care doctor in the next 5 days. Return to the Emergency Department if you experience new or worsening symptoms. Print Language: SPA - Post Discharge Activity
[2020-04-25 03:45] VITALS: BP 165/77; PULSE 64; TEMP 98.5
--- NOTE | 2020-04-25 09:27 | EKG ---
Test Reason : Blood Pressure : / mmHG Vent. Rate : 076 BPM Atrial Rate : 076 BPM P-R Int : 186 ms QRS Dur : 078 ms QT Int : 406 ms P-R-T Axes : 069 027 064 degrees QTc Int : 456 ms NORMAL SINUS RHYTHM POSSIBLE LEFT ATRIAL ENLARGEMENT BORDERLINE ECG WHEN COMPARED WITH ECG OF 06-APR-2018 22:46, NO SIGNIFICANT CHANGE WAS FOUND Confirmed by Charity Hartman ([id number]) on 04/25/2020 9:27:23 AM Referred By: Confirmed By:Charity Hartman
[2020-04-25] MEDS ORDERED: LIDOCAINE PATCH REMOVAL MC SCH (22:00)
== END 2020-04-25 04:16 | disposition home or self-care (01) ==
LOC: JER 22:15 → SUPCPDRO 22:15 → JER 04-25 04:16
DX: M48.02 Spinal stenosis, cervical region (principal)
CPT/HCPCS: 36415; 70450-TC; 72125-TC; 80053; 80061; 82550; 82553; 83721; 84484; 85025; 85610; 85730; 93005; 93010; 99285-25